=== PATIENT | female | born 1955 | race Caucasian/White ===

== ENCOUNTER 2018-04-14 15:28 | Inpatient (IN) | payer MEDICARE, MEDICAID ==
[2018-04-14] MEDS ORDERED: Naloxone HCl 2 mg/2 ml Syringe ONE (15:35)
[2018-04-14] MEDS ORDERED: Naloxone HCl 0.4 mg/ml Vial ONE (15:35)
[2018-04-14 15:48] LABS: Bilirubin Negative (Negative); Blood, Urine Negative (Negative); Clarity CLEAR (Clear); Glucose, Urine (Dipstick) Negative (Negative); Leukocyte Trace (Negative); Nitrite Negative (Negative); Protein, Urine (Dipstick) Trace mg/dL (Neg-Trace); Specific Gravity, Urine 1.026 (1.002-1.036); Urobilinogen 0.2 mg/dL (0.2-1.0); pH, Urine 5.5 (5.0-9.0)
[2018-04-14 15:51] LABS: Bacteria/HPF None Seen HPF (None Seen); Hyaline Casts/LPF 4-6 HYALINE CAST LPF (0-3 Hyaline); Pathc Cast-AUWi Flag 0.87 (0-2.49); RBC/HPF 0-3 HPF (0-3); Squamous Epithelial 0-3 HPF (0-3); WBC/HPF 0-3 HPF (0-3)
[2018-04-14 16:00] LABS: Amphetamine Not Detected (NotDetected); Barbiturates Screen Not Detected (NotDetected); Benzodiazepine Screen Detected (NotDetected); Cocaine Metabolite Screen Not Detected (NotDetected); Medtox Control Line Valid? VALID (VALID); Medtox Reader # READER 4; Methadone Not Detected (NotDetected); Methamphetamine Not Detected (NotDetected); Opiate Screen Detected (NotDetected); Oxycodone Screen Not Detected (NotDetected); Phencyclidine (PCP) Not Detected (NotDetected); THC/Cannabinoid Screen Not Detected (NotDetected); Tricyclic Screen Detected (NotDetected)
[2018-04-14 16:04] LABS: Hemoglobin 11.4 g/dL (12.0-16.0); Mean Corpuscular HGB CONC 30.4 g/dL (32.0-36.0); Mean Corpuscular Hemoglobin 29.8 pg (27.0-31.0); Mean Corpuscular Volume 97.9 fL (78.0-98.0); Mean Platelet Volume 6.1 fL (7.4-10.4); Platelet Count 505 thou/uL (130-400); RBC Distribution Width 14.1 % (11.5-14.5); Red Blood Cell (RBC) Count 3.81 mill/uL (4.20-5.40); White Blood Cell (WBC) Count 24.5 thou/uL (4.8-10.8)
[2018-04-14 16:05] LABS: Actual Bicarbonate (HCO3a) 35.6 mEq/L (22-28); Analyzer IN Cardio ER; Base Excess (BEa) 8.9 mEq/L (-2.0 to +3.0); Calcium, Ionized 1.15 mmol/L (1.12-1.30); Carboxyhemoglobin (COHb) 0.8 gm% (0.0-3.0); Hemoglobin (Hb) 10.4 g/dL (12.0-16.0); O2 Tension (PaO2) 68.9 mmHg (> 80.0); Potassium - ABG Lab 4.23 mmol/L (3.70-5.30); pH, Arterial 7.38 (7.35-7.45)
[2018-04-14 16:09] LABS: CO2 Tension 61.6 mmHg (35.0-45.0)
[2018-04-14 16:16] LABS: Band 8 % (5-11); Lymphocytes 7 % (21-51); MDiff Complete? YES; Monocytes 2 % (0-10); Neutrophil 83 % (42-75); PLT Morphology Comment Appears Increased; Polychromasia SLIGHT = 2-3 cells (100X) (0-2/hpf)
[2018-04-14 16:25] LABS: Acetaminophen Less than 6.0 mcg/mL (10.0-30.0); Alcohol Less than 10 mg/dL (Less than 10); CK (CPK) 38 U/L (29-168); Salicylate Less than 8.0 mg/dL (15.0-30.0)
[2018-04-14 16:26] LABS: ALT (SGPT) 13 U/L (8-55); AST (SGOT) 17 U/L (5-34); Albumin 3.3 g/dL (3.5-5.0); Alkaline Phosphatase 93 U/L (40-150); Anion Gap 20 mmol/L (10-20); BUN (Urea Nitrogen) 15 mg/dL (9.8-20.1); Bilirubin, Total 0.2 mg/dL (0.2-1.2); Calc. Creatinine Clearance 0 mL/min (70-130); Carbon Dioxide 28 mmol/L (22-29); Chloride 96 mmol/L (98-107); Estimated GFR-MDRD 85; Globulin 3.9 g/dL (2.4-3.5); Glucose 114 mg/dL (70-105); Potassium 5.1 mmol/L (3.5-5.1); Protein, Total 7.2 g/dL (6.0-8.3); Sodium 139 mmol/L (136-145)
[2018-04-14] MEDS ORDERED: fentaNYL Citrate/PF 2,000 MCG in Sodium Chloride 0.9% 60 ML IV SCH (16:53)
--- NOTE | 2018-04-14 16:58 | RAD ---
PORTABLE SUPINE CHEST: 04/14/18 HISTORY: Shortness of breath, post intubation followup and NG tube placement. COMPARISON: 03/06/06. Opacification of the right lung base is present. This suggests right effusion and right basilar atele ctasis and consolidation. The patient is rotated distorting the chest. ET tube tip appears adequately positioned with tip above latosha. NG tube is in place with the tip down the EG junction and not visualized on this film. The l eft lung appears clear. IMPRESSION: Right lung mass opacification as described POS: IAN
--- NOTE | 2018-04-14 17:56 | CT ---
CT BRAIN NONCONTRAST: 04/14/18 HISTORY: 62-year-old female status post fall and altered mental status. FINDINGS: There is no midline shift or any other mass effect. There is no evidence of acute intracranial hemor rhage, large cortical infarct, obstructive hydrocephalus, or extraaxial fluid collection. The calvar ium is intact. There is nasal bone fracture with distal tip of left side angled medially. There is an OGT and ETT in the oral cavity. There is associated near-total opacification of the nasopharyngeal a irway and nasal cavity by secretions. IMPRESSION: 1. No acute intracranial findings. 2. Minimally displaced nasal bone fracture of indeterminate age. 3. Endotracheal tube and orogastric tube. jn [] POS: JIN
--- NOTE | 2018-04-14 18:03 | CT ---
CT CERVICAL SPINE NONCONTRAST: 04/14/18 HISTORY: 62-year-old female status post acute cervical trauma from multiple falls. FINDINGS: There are no jumped or perched facets. There is no evidence of acute fracture. The vertebral body h eights are maintained. There is no prevertebral soft tissue swelling. There is opacification of the right lung apex. Endotracheal tube travels into the trachea. Orogastric tube is present in the esopha tonya. There are bulky osteophytes protruding into the prevertebral space at C3-4 and C7-T1. There is f usion of the C5 and C6 vertebral bodies across the obliterated disc space, currently without hardware . IMPRESSION: 1. No evidence of acute fracture or acute traumatic subluxation. 2. DISH (diffuse idiopathic skeletal hyperostosis). 3. Ankylosis of C5-6. jn [] POS: JIN
[2018-04-14] MEDS ORDERED: cefTRIAXone\\ROCEPHIN 2 GM VIAL ONE (18:09)
[2018-04-14 18:30] LABS: Actual Bicarbonate (HCO3a) 33.8 mEq/L (22-28); Analyzer IN Cardio ER; Base Excess (BEa) 9.7 mEq/L (-2.0 to +3.0); Carboxyhemoglobin (COHb) 0.3 gm% (0.0-3.0); Hemoglobin (Hb) 9.8 g/dL (12.0-16.0); O2 Tension (PaO2) 152.3 mmHg (> 80.0); Potassium - ABG Lab 3.97 mmol/L (3.70-5.30)
[2018-04-14] MEDS ORDERED: Dextrose 5% in Water 1,000 ML IV PRN (19:08)
[2018-04-14] MEDS ORDERED: Acetaminophen 325 MG/10.15 ML UDCUP PO PRN (19:08)
[2018-04-14] MEDS ORDERED: Acetaminophen 650 MG Suppository PR PRN (19:08)
[2018-04-14] MEDS ORDERED: Bisacodyl 10 MG SUPP PR PRN (19:08)
[2018-04-14] MEDS ORDERED: RENALLY ADJUST ANTIBIOTICS IVPB PRN (19:08)
[2018-04-14] MEDS ORDERED: Dextrose 50% Abboject 50 ML SYRINGE SLOW IVP PRN (19:08)
[2018-04-14] MEDS ORDERED: SYSTANE 3.5 GM TUBE EA EYE PRN (19:08)
[2018-04-14] MEDS ORDERED: Dextrose 5 %-0.45 % NaCl 1,000 ML IV SCH (19:15)
[2018-04-14] MEDS ORDERED: Ventilator Sedation Protocol 1 EACH FS SCH (19:15)
[2018-04-14] MEDS ORDERED: DISCONTINUE PREVIOUS NARCOTIC PAIN MEDICATIONS AND BENZODIAZEPINES FS SCH (19:28)
[2018-04-14] MEDS ORDERED: Fentanyl BOLUS 250 ML IVPB PRN (19:28)
[2018-04-14] MEDS ORDERED: Morphine 2 MG/ML SYRINGE SLOW IVP PRN (19:28)
[2018-04-14] MEDS ORDERED: Propofol BOLUS 1,000 MG/100 ML VIAL IV PRN (19:28)
[2018-04-14] MEDS ORDERED: Propofol 1,000 MG/100 ML VIAL IV PRN (19:28)
[2018-04-14 19:33] LABS: Troponin I Less than 0.010 ng/mL (< 0.028)
--- NOTE | 2018-04-14 20:06 | HP ---
PRIMARY CARE PHYSICIAN: Dr. Rik Ray. CHIEF COMPLAINT: Altered mentation. HISTORY OF PRESENT ILLNESS: The patient is a 62-year-old female with COPD, diabetes mellitus type 2 and obstructive sleep apnea, was brought in by EMS with altered mentation. The patient was admitted at this facility in December of this year for COPD exacerbation as well as pneumonia. She required noninvasive positive pressure ventilation while in the emergency room. She was discharged home on Levaquin along with prednisone taper. She also has a history of chronic pain syndrome and anxiety. The patient was brought in by EMS due to altered mentation. The trichologist reported that the patient has been having altered mentation, "all day" with multiple falls yesterday. Her O2 saturation by the EMS was 70% on room air. She received DuoNebs by EMS. Please note that there is no family or trichologist at the bedside. History obtained from the ER chart. In the emergency room, the patient's ABG showed pH of 7.38 with pCO2 of 61.6, bicarbonate of 35.6 with O2 saturation of 92.9 on 40% FiO2. She was subsequently intubated and was placed on mechanical ventilation. Apparently, her sister was contacted, who will be coming tonight. Her sister's phone #[phone] (Brina). PAST MEDICAL HISTORY: 1. COPD. 2. Obstructive sleep apnea. 3. Diabetes mellitus type 2. 4. Pneumonia in December of this year. 5. Chronic pain syndrome. 6. Anxiety. 7. Hyperlipidemia. 8. History of breast cancer. 9. Seizure disorder. 10. Obesity. 11. Schizophrenia. PAST SURGICAL HISTORY: 1. Right leg surgery. 2. Ventral hernia repair. 3. Cervical and lumbar surgery. 4. Hysterectomy. 5. Mastectomy. ALLERGIES: THE PATIENT IS ALLERGIC TO CODEINE, CYMBALTA, GABAPENTIN, AND LYRICA. CURRENT HOME MEDICATIONS: Cannot be obtained from the patient due to current cognitive status. SOCIAL HISTORY: The patient is a former smoker from review of record. FAMILY HISTORY: Family history cannot be obtained from the patient due to current cognitive status. REVIEW OF SYSTEMS: Cannot be obtained from the patient due to current cognitive status. PHYSICAL EXAMINATION: VITAL SIGNS: Temperature 99.9, respirations 19, pulse rate of 94, blood pressure of 98/65 with O2 saturation 100% on mechanical ventilation. GENERAL: A 62-year-old female, intubated on mechanical ventilation. HEENT: Head is atraumatic and normocephalic. Pupils approximately 2 mm with sluggish response to light. Endotracheal tube noted. NECK: Supple. No JVD appreciated. No carotid bruit. LUNGS: Showed bilateral rhonchi with rales at bases. No accessory muscle use noted. There was scattered wheezing as well. HEART: S1 and S2 present. Regular. No rubs or gallops appreciated. No significant murmurs appreciated. ABDOMEN: Soft. Bowel sounds present. No rebound or guarding. EXTREMITIES: No edema or calf tenderness. SKIN: Warm and dry. Multiple superficial bruising noted especially over the left knee. NEUROLOGY AND PSYCHIATRY: As discussed above. LYMPH NODE: No palpable lymph nodes in the neck. Peripheral, vascular, and radial pulses palpable bilaterally. MUSCULOSKELETAL: No joint swelling, tenderness. LABORATORY FINDINGS: CBC showed WBC 24.5 with hemoglobin 11.4, hematocrit 37.3 with platelet count of 505. ABGs as discussed above. Chemistry showed sodium 139, potassium 5.1, chloride 96, bicarbonate 28, BUN 20, and creatinine 0.7. LFTs in normal range. Lactic acid 1.1. Urinalysis was negative for wbc, bacteria. Urine drug screen positive for benzodiazepines, tricyclics, and opiates. DIAGNOSTIC DATA: Chest x-ray by my review showed opacifications in the right lung base along with right-sided effusion. CT scan of the brain and cervical spine CT were negative for acute findings. EKG by my review showed sinus tachycardia with premature ventricular complexes, left axis deviation, and right bundle branch block. IMPRESSION: 1. Acute hypoxic and hypercapnic respiratory failure secondary to pneumonia, suspected aspiration pneumonia. 2. Toxic metabolic encephalopathy, multifactorial. Urine drug screen is also positive for opiates and benzodiazepines. 3. Sepsis with acute organ dysfunction secondary to pneumonia. 4. Obstructive sleep apnea, on BiPAP at home per previous record. 5. Chronic obstructive pulmonary disease with chronic obstructive pulmonary disease exacerbation. 6. Hypertension. 7. Chronic pain syndrome. 8. Diabetes mellitus type 2. 9. Hyperlipidemia. 10. Anxiety and schizophrenia. 11. Chronic kidney disease stage 2. 12. History of breast cancer. 13. History of seizure disorder. PLAN: The patient will be monitored in the intensive care unit. The patient has received ceftriaxone and azithromycin in the emergency room with IV fluids. We will start her on Zosyn as well as Levaquin. We will add nebulizer treatment every 4 hourly. We will check one set of troponin. She also received Narcan in the emergency room. Vital signs per protocol. We will repeat labs in a.m. IV fluids. Insulin sliding scale. Critical Care consult in a.m. Job ID: [id number]
[2018-04-14 20:12] LABS: Puncture Site LRA
[2018-04-14] MEDS: Famotidine/PF 20 mg/2ml Vial SLOW IVP SCH (21:31)
[2018-04-14] MEDS ORDERED: Vancomycin HCl 1.75 GM in Sodium Chloride 0.9% 500 ML IVPB SCH (22:00)
[2018-04-15] MEDS: Insulin Glargine 10 UNITS in Pre-Filled Syringe 1 EACH SC SCH ×2 (00:58→21:19)
[2018-04-15] MEDS: Piperacillin/Tazobactam 3.375 GM in Sodium Chloride 0.9% 100 ML IVPB SCH ×5 (01:07→22:08)
[2018-04-15] MEDS: fentaNYL Citrate/PF 2,000 MCG in Sodium Chloride 0.9% 60 ML IV SCH ×2 (01:27→14:57)
[2018-04-15] MEDS ORDERED: Sodium Chloride 0.9% 500 ML IVPB SCH (02:15)
[2018-04-15] MEDS: Dextrose 5 % And 0.9 % NaCl 1,000 ML IV SCH ×3 (02:25→21:18)
[2018-04-15] MEDS ORDERED: Vancomycin HCl 1 GM in Premix Bag 1 BAG IVPB SCH (06:00)
[2018-04-15 06:19] LABS: ALT (SGPT) 9 U/L (8-55); AST (SGOT) 12 U/L (5-34); Albumin 2.5 g/dL (3.5-5.0); Alkaline Phosphatase 62 U/L (40-150); Anion Gap 15 mmol/L (10-20); BUN (Urea Nitrogen) 16 mg/dL (9.8-20.1); Bilirubin, Total 0.3 mg/dL (0.2-1.2); Calc. Creatinine Clearance 123 mL/min (70-130); Calcium 8.1 mg/dL (7.8-10.44); Carbon Dioxide 27 mmol/L (22-29); Chloride 102 mmol/L (98-107); Estimated GFR-MDRD 74; Globulin 3.4 g/dL (2.4-3.5); Glucose 121 mg/dL (70-105); Magnesium 1.5 mg/dL (1.6-2.6); Potassium 3.8 mmol/L (3.5-5.1); Protein, Total 5.9 g/dL (6.0-8.3); Sodium 140 mmol/L (136-145)
[2018-04-15 06:26] LABS: Band 17 % (5-11); Hemoglobin 8.1 g/dL (12.0-16.0); Lymphocytes 6 % (21-51); MDiff Complete? YES; Mean Corpuscular HGB CONC 31.2 g/dL (32.0-36.0); Monocytes 4 % (0-10); Myelocyte 1 % (0-0); Neutrophil 72 % (42-75); PLT Morphology Comment Appears Increased; Platelet Count 511 thou/uL (130-400); RBC Distribution Width 13.8 % (11.5-14.5); RBC Morphology Normal; White Blood Cell (WBC) Count 21.5 thou/uL (4.8-10.8)
[2018-04-15] MEDS: Budesonide 0.5 MG/2 ML NEB INH SCH ×2 (06:30→18:29)
[2018-04-15 06:39] LABS: Actual Bicarbonate (HCO3a) 30.8 mEq/L (22-28); Base Excess (BEa) 8.9 mEq/L (-2.0 to +3.0); CO2 Tension 31.6 mmHg (35.0-45.0); Calcium, Ionized 1.02 mmol/L (1.12-1.30); Carboxyhemoglobin (COHb) 0.9 gm% (0.0-3.0); Hemoglobin (Hb) 8.4 g/dL (12.0-16.0); Potassium - ABG Lab 3.47 mmol/L (3.70-5.30)
[2018-04-15 06:41] LABS: O2 Tension (PaO2) 53.5 mmHg (> 80.0); Puncture Site RRA; pH, Arterial 7.61 (7.35-7.45)
[2018-04-15] MEDS ORDERED: Magnesium Sulfate 2 GM in Sodium Chloride 0.9% 100 ML IVPB SCH (07:00)
[2018-04-15] MEDS ORDERED: Magnesium 2 GM/50 ML 2 GM in Premix Bag 1 BAG IVPB SCH ×2 (07:00→12:30)
[2018-04-15] MEDS: Famotidine/PF 20 mg/2ml Vial SLOW IVP SCH ×2 (08:00→21:19)
[2018-04-15] MEDS: Vancomycin HCl 1 GM in Premix Bag 1 BAG IVPB SCH ×2 (08:00→17:51)
[2018-04-15] MEDS ORDERED: Sodium Chloride 0.9% 500 ML IV SCH (08:30)
--- NOTE | 2018-04-15 10:08 | RAD ---
SINGLE VIEW OF THE CHEST: COMPARISON: 04/14/2018. HISTORY: Daily chest x-ray in CCU patient. FINDINGS: A single view of the chest shows a normal-size cardiomediastinal silhouette. There is significant wo rsening of the right pleural effusion with complete opacification of the right thorax. No left-sided pleural effusion is seen. No shift of the mediastinum is seen. The lines and tubes are unchanged i n position. IMPRESSION: Large right pleural effusion. CODE T POS: CHERELLE
[2018-04-15 11:10] LABS: Hemoglobin 8.4 g/dL (12.0-16.0)
[2018-04-15] MEDS: Insulin Regular 300 UNITS/3 ML VIAL SC PRN ×3 (12:29→21:29)
--- NOTE | 2018-04-15 18:37 | OP ---
DATE OF PROCEDURE: 04/15/2018 PROCEDURE: Fiberoptic bronchoscopy. The patient was sedated for mechanical ventilation. Bronchoscope was introduced through the endotracheal tube and passed down to the latosha. The latosha was sharp. Right main stem bronchus with the bronchus intermedius was plugged with thick white mucus. This was suctioned and lavaged with saline until clear. No endobronchial lesions were seen. Left lower lobe and left upper lobe were inspected. Specimens were sent for Gram-stain and culture. The patient tolerated the procedure well. Job ID: [id number]
--- NOTE | 2018-04-15 18:46 | CON ---
DATE OF CONSULTATION: 04/15/2018 HISTORY OF PRESENT ILLNESS: Ms. Quan is a 62-year-old female who is intubated in the Critical Care Unit. History is obtained from medical record. Apparently, she has COPD, sleep apnea, and diabetes. She apparently had altered mental status, was transported by EMS to the hospital. Apparently, she was falling at home and confused. Because of her mental status apparently she was intubated. PAST MEDICAL HISTORY: 1. Chronic obstructive pulmonary disease. 2. Sleep apnea. 3. Diabetes. 4. History of pneumonia. 5. History of chronic pain. 6. History of anxiety. 7. Lipid disorder. 8. History of breast cancer. 9. History of seizure disorder. 10. History of schizophrenia. 11. History of obesity. 12. History of hernia repair. 13. History of cervical and lumbar spine surgery. 14. Status post hysterectomy. 15. History of mastectomy. 16. History of right leg surgery. ALLERGIES: SHE REPORTS INTOLERANCE TO CODEINE, CYMBALTA, GABAPENTIN, AND LYRICA. MEDICATIONS: None. FAMILY HISTORY: Not obtainable. SOCIAL HISTORY: Not obtainable. REVIEW OF SYSTEMS: 10 point review of systems completed, not obtainable. There is no family here. PHYSICAL EXAMINATION: GENERAL: Ms. Quan is a 62-year-old female VITAL SIGNS: Blood pressure 99/68, heart rate 100, respiratory rate is per mechanical ventilation, oximetry is 100%. HEENT: Pupils are reactive. Sclerae anicteric. NECK: Supple. LUNGS: There are markedly decreased breath sounds on the right. HEART: Regular rhythm. S1, S2 normal. ABDOMEN: Soft and nontender. EXTREMITIES: Without clubbing, cyanosis, or edema. Bicarbonate Chest radiograph is suggestive of right lung atelectasis. I recommended bronchoscopy. IMPRESSION: 1. Respiratory failure. 2. History of chronic obstructive pulmonary disease. 3. History of chronic pain. 4. History of altered mental status prior to admission with no hypocarbia on blood gas. I wonder if this is pain medicine induced. PLAN: Bronchoscopy. Empiric antibiotic treatment, nebulizer treatments, steroids, mechanical ventilation. Critical care time 30 minutes, independent of procedures performed. Job ID: [id number] MTDD
--- NOTE | 2018-04-15 22:48 | PDOC.PN ---
- Subjective Encounter Start Date: 04/15/18 Encounter Start Time: 09:00 -: non-verbal Patient seen and examined for resp failure/Encephalopathy. No overnight events - Objective MAR Reviewed: Yes Vital Signs & Weight: Vital Signs (12 hours) Temp Pulse Resp 04/15/18 22:15 104 H 04/15/18 18:30 103 H 04/15/18 18:00 19 04/15/18 16:00 98.7 F 12 04/15/18 14:53 99 04/15/18 14:00 13 04/15/18 13:26 103 H 04/15/18 13:00 99.1 F 04/15/18 12:00 10 L Weight Weight 227 lb 8.273 oz Most Recent Monitor Data Heart Rate from ECG 103 NIBP 105/64 NIBP BP-Mean 77 Respiration from ECG 1 SpO2 97 I&O: 04/14/18 04/15/18 04/16/18 06:59 06:59 06:59 Intake Total 750 2543 Output Total 450 470 Balance 300 2073 Result Diagrams: 04/16/18 05:16 04/16/18 05:16 Additional Labs: Accuchecks 04/15/18 04/15/18 04/15/18 21:26 18:09 12:25 POC Glucose 185 H 182 H 175 H 04/15/18 00:22 POC Glucose 104 Radiology Reviewed by me: Yes (CXR - Rt sided infiltrate/worsening) EKG Reviewed by me: Yes (Tele SR) Phys Exam - Physical Examination Constitutional: NAD (on Vent) Respiratory: no wheezing Rt sided rales/rhonchi Cardiovascular: RRR, no rub Gastrointestinal: soft, positive bowel sounds Musculoskeletal: no edema Neuro/Psych - Cannot be obtained due to current mentation Dx/Plan - Plan DVT proph w/SCDs 1. Acute hypoxic and hypercapnic respiratory failure secondary to pneumonia,? Aspiration pneumonia. 2. Toxic metabolic encephalopathy, multifactorial. 3. Sepsis with acute organ dysfunction secondary to pneumonia. 4. Obstructive sleep apnea, on BiPAP at home per previous record. 5. COPD exacerbation. 6. Hypertension. 7. Chronic pain syndrome. 8. Diabetes mellitus type 2. 9. Hyperlipidemia. 10. Anxiety and schizophrenia. 11. Chronic kidney disease stage 2. 12. History of breast cancer. 13. History of seizure disorder. PLAN: Cont Vent support Cont Nebs/Atbx Prob Bronch today Cont IVF AM labs Cont sliding scale Review of Systems - Review of Systems Other: Cannot be obtained due to current mentation. - Medications/Allergies Allergies/Adverse Reactions: Allergies Allergy/AdvReac Type Severity Reaction Status Date / Time codeine Allergy Verified 04/14/18 23:04 duloxetine [From Cymbalta] Allergy Verified 04/14/18 23:04 gabapentin Allergy Verified 04/14/18 23:04 pregabalin [From Lyrica] Allergy Verified 04/14/18 23:04 Medications: Current Medications Acetaminophen (Tylenol Elixir) 650 mg PO Q6H PRN PRN Reason: Fever > 101 or Mild Pain Acetaminophen (Tylenol) 650 mg NV Q6H PRN PRN Reason: Fever > 101 or Mild Pain Last Admin: 04/15/18 03:15 Dose: 650 mg Albuterol/Ipratropium (Duoneb) 3 ml NEB [id number] ODETTE Last Admin: 04/15/18 22:15 Dose: 3 ml Albuterol/Ipratropium (Duoneb) 3 ml NEB Q2H PRN PRN Reason: SOB &/or Wheezing Bisacodyl (Dulcolax) 10 mg NV DAILYPRN PRN PRN Reason: Constipation Budesonide (Pulmicort Neb Solution) 0.5 mg INH BID-RT ODETTE Last Admin: 04/15/18 18:29 Dose: 0.5 mg Dextrose/Water (Dextrose 50%) 25 gm SLOW IVP PRN PRN PRN Reason: Hypoglycemia Famotidine (Pepcid) 20 mg SLOW IVP Q12HR [facility] Last Admin: 04/15/18 21:19 Dose: 20 mg Glucagon (Glucagon) 1 mg IM PRN PRN PRN Reason: Hypoglycemia Levofloxacin 750 mg/ Device 150 mls @ 100 mls/hr IVPB Q24HR ODETTE Last Admin: 04/15/18 22:09 Dose: 150 mls Piperacillin Sod/Tazobactam (Sod 3.375 gm/ Sodium Chloride) 100 mls @ 200 mls/ hr IVPB Q6HR ODETTE Last Admin: 04/15/18 22:08 Dose: 100 mls Dextrose/Water (D5w) 1,000 mls @ 0 mls/hr IV .Q0M PRN PRN Reason: Hypoglycemia Insulin Glargine 10 units/ (Miscellaneous Medication) 0.1 mls @ 0 mls/hr SC HS ODETTE Last Admin: 04/15/18 21:19 Dose: 0.1 mls Fentanyl Citrate (Fentanyl Bolus) 250 mls @ 0 mls/hr IVPB PRN PRN PRN Reason: Breakthrough pain/agitation Stop: 05/14/18 19:28 Fentanyl Citrate 2,000 mcg/ (Sodium Chloride) 100 mls @ 0 mls/hr IV INF ODETTE; Protocol Stop: 05/14/18 19:30 Last Admin: 04/15/18 14:57 Dose: 100 mls Vancomycin HCl 1 gm/ Device 200 mls @ 200 mls/hr IVPB 0100,0900,1700 [facility] Last Admin: 04/15/18 17:51 Dose: 200 mls Dextrose/Sodium Chloride (D5 0.9% Ns) 1,000 mls @ 125 mls/hr IV .Q8H [facility] Last Admin: 04/15/18 21:18 Dose: 1,000 mls Influenza Virus Vaccine Quadrival (Fluzone Quad [id number] Syringe) 0.5 ml IM .ONCE ONE Stop: 04/16/18 09:01 Insulin Human Regular (Humulin R) 0 units SC .MILD SLIDING SCALE PRN PRN Reason: Mild Correctional Scale Last Admin: 04/15/18 21:29 Dose: 2 unit Insulin Human Regular (Humulin R) 0 units SC .BEDTIME SLIDING SC PRN PRN Reason: Bedtime Correctional Scale Lorazepam (Ativan) 2 mg SLOW IVP Q1H PRN PRN Reason: Breakthrough agitation Stop: 05/14/18 19:28 Mineral Oil/White Petrolatum (Systane Nighttime Eye Ointment) 0 gm EA EYE PRN PRN PRN Reason: Dry Eyes Miscellaneous Medication (Ventilator Sedation Protocol) 1 each FS ONE [facility] Stop: 05/14/18 19:16 Miscellaneous Medication (Pharmacy To Dose) 1 each IVPB PRN PRN PRN Reason: Pharmacy to dose Miscellaneous Medication (Pharmacy To Dose) 0 each IVPB PRN PRN PRN Reason: [facility] Pharmacy to Dose Morphine Sulfate (Morphine) 2 mg SLOW IVP Q1H PRN PRN Reason: BREAKTHROUGH PAIN/Agitation Stop: 05/14/18 19:28 Discontinue Previous Narcotic Pain Medications And Benzodiazepines 1 each FS .ONE ODETTE Stop: 05/14/18 19:28 Pneumococcal Polyvalent Vaccine (Pneumovax 23) 0.5 ml IM .ONCE ONE Stop: 04/16/18 09:01 Propofol (Diprivan) 1,000 mg IV INF PRN; Protocol PRN Reason: TO ACHIEVE GOAL RASS Stop: 05/14/18 19:28 Propofol (Diprivan Bolus) 20 mg IV Q5MIN PRN PRN Reason: BREAKTHROUGH AGITATION Stop: 05/14/18 19:28 Sodium Chloride (Flush - Normal Saline) 10 ml IVF PRN PRN PRN Reason: Saline Flush Sodium Chloride (Flush - Normal Saline) 10 ml IVF Q12HR ODETTE Last Admin: 04/15/18 22:20 Dose: 10 ml
[2018-04-16] MEDS: Vancomycin HCl 1 GM in Premix Bag 1 BAG IVPB SCH (00:32)
[2018-04-16 01:04] LABS: Vancomycin, Trough 28.8 ug/mL
[2018-04-16] MEDS: Dextrose 5 % And 0.9 % NaCl 1,000 ML IV SCH ×3 (05:44→19:04)
[2018-04-16] MEDS: Piperacillin/Tazobactam 3.375 GM in Sodium Chloride 0.9% 100 ML IVPB SCH ×4 (05:45→23:48)
[2018-04-16 06:12] LABS: Band 5 % (5-11); Hemoglobin 7.9 g/dL (12.0-16.0); Hypochromia SLIGHT = 6-15 cells (100X) (0-5/hpf); Lymphocytes 3 % (21-51); MDiff Complete? YES; Macrocytosis SLIGHT = 6-15 cells (100X) (0-5/hpf); Mean Corpuscular HGB CONC 29.9 g/dL (32.0-36.0); Mean Corpuscular Hemoglobin 29.8 pg (27.0-31.0); Mean Corpuscular Volume 99.6 fL (78.0-98.0); Mean Platelet Volume 5.8 fL (7.4-10.4); Monocytes 3 % (0-10); Neutrophil 89 % (42-75); PLT Morphology Comment Appears Decreased; Platelet Count 504 thou/uL (130-400); Red Blood Cell (RBC) Count 2.65 mill/uL (4.20-5.40); White Blood Cell (WBC) Count 26.2 thou/uL (4.8-10.8)
[2018-04-16 06:13] LABS: ALT (SGPT) 7 U/L (8-55); AST (SGOT) 9 U/L (5-34); Albumin 2.3 g/dL (3.5-5.0); Alkaline Phosphatase 66 U/L (40-150); Anion Gap 13 mmol/L (10-20); BUN (Urea Nitrogen) 18 mg/dL (9.8-20.1); Bilirubin, Total Less than 0.2 mg/dL (0.2-1.2); Calc. Creatinine Clearance 130 mL/min (70-130); Calcium 8.1 mg/dL (7.8-10.44); Carbon Dioxide 27 mmol/L (22-29); Chloride 103 mmol/L (98-107); Estimated GFR-MDRD 72; Globulin 3.6 g/dL (2.4-3.5); Glucose 152 mg/dL (70-105); Magnesium 1.9 mg/dL (1.6-2.6); Potassium 3.9 mmol/L (3.5-5.1); Protein, Total 5.9 g/dL (6.0-8.3); Sodium 139 mmol/L (136-145)
[2018-04-16] MEDS: Budesonide 0.5 MG/2 ML NEB INH SCH ×2 (07:30→18:41)
[2018-04-16 07:44] LABS: Actual Bicarbonate (HCO3a) 29.7 mEq/L (22-28); Base Excess (BEa) 3.6 mEq/L (-2.0 to +3.0); CO2 Tension 54.4 mmHg (35.0-45.0); Calcium, Ionized 1.07 mmol/L (1.12-1.30); Carboxyhemoglobin (COHb) 1.7 gm% (0.0-3.0); Hemoglobin (Hb) 8.1 g/dL (12.0-16.0); O2 Tension (PaO2) 74.8 mmHg (> 80.0); Potassium - ABG Lab 3.85 mmol/L (3.70-5.30); pH, Arterial 7.36 (7.35-7.45)
[2018-04-16 07:47] LABS: Puncture Site LRA
--- NOTE | 2018-04-16 08:55 | RAD ---
CHEST 1 VIEW: INDICATION: History of intubation. COMPARISON: Prior study dated 04/15/2018. IMPRESSION: There is improvement in the right-sided pleural effusion. Moderate right pleural effusion remains. Patchy airspace opacity remains in the right lung which may reflect edema, pneumonia, or residual ate lectasis. The left lung remains clear. Osseous structures are unchanged. Heart size remains enlarg ed. Improvement in the right-sided pleural effusion. Moderate right pleural effusion remains howeve r. POS: TPC
[2018-04-16] MEDS: Famotidine/PF 20 mg/2ml Vial SLOW IVP SCH ×2 (09:37→20:38)
[2018-04-16] MEDS: Lorazepam 2 MG/ML VIAL SLOW IVP PRN (09:38)
--- NOTE | 2018-04-16 12:11 | CT ---
CT THORAX WITHOUT IV CONTRAST: Date: 04/16/18 INDICATION: History of effusion and pneumonia. COMPARISON: CTA of thorax dated 01/21/18. FINDINGS: There is prominent air space consolidation within the right lower lobe, as well as the posterior segm ent of the right upper lobe, with a moderate to large right pleural effusion. There is an air fluid l evel seen within the parenchyma of the right lower lobe and the previously expected region of an area of rounded consolidation on the prior CT examination dated 01/21/18. Findings may reflect a localize d lesion of central necrosis of a large right infrahilar lung mass versus central necrosis from pneum onia of the right lower lobe. No pneumothorax is evidence. There is subsegmental atelectasis within t he left lung. The patient is intubated with a gastric catheter in place. There is scattered vascular calcification involving the coronary arteries and thoracic aorta. Visualized upper abdomen demonstrat es a hydropic gallbladder with layered sludge within the gallbladder. No focal hepatic lesion is rayne sly evident. There is scattered degenerative and osteoarthritic change. There are healed posterior ri ght 11th and 12th rib fractures. IMPRESSION: 1. Prominent air space consolidation within the right upper lobe and right lower lobe, suspicious fo r pneumonia. There is an air fluid level centered within the right lower lobe parenchyma in the previ ously seen region of rounded consolidation of the right lower lobe on the comparison CT dated 8. Findings may reflect a central necrotic lung mass versus pneumonia. If renal function permits, a r epeat evaluation with IV contrast may be helpful for improved characterization. Alternatively, bronch oscopy may be helpful for further evaluation. 2. Small right pleural effusion. 3. Subsegmental atelectasis of the left lung. 4. Slightly hydropic gallbladder with layered densities within the gallbladder suspicious for sludge . POS: TPC
[2018-04-16] MEDS: Insulin Regular 300 UNITS/3 ML VIAL SC PRN ×3 (13:26→23:50)
[2018-04-16] MEDS: Vancomycin HCl 1.25 GM in Sodium Chloride 0.9% 250 ML 250 ML IVPB SCH (13:54)
[2018-04-16] MEDS: fentaNYL Citrate/PF 2,000 MCG in Sodium Chloride 0.9% 60 ML IV SCH (14:45)
--- NOTE | 2018-04-16 15:37 | PRG ---
DATE OF SERVICE: 04/16/2018 SUBJECTIVE: Ms. Quan is sedated for ventilation. OBJECTIVE: VITAL SIGNS: Stable. Blood pressure 106/56, heart rate is 106, respiratory rates in the 10 to 12 range, oximetry is 97%. LUNGS: Remarkable for diffuse and very coarse rhonchi. HEART: Regular rhythm. S1 and S2 normal. ABDOMEN: Soft and nontender without guarding. EXTREMITIES: Without clubbing, cyanosis, or edema. IMAGING DATA: Bronchoscopy culture so far just shows a Gram-stain with few gram-positive cocci in pairs and chains. Cultures are pending. Blood cultures negative at 48 hours. Chest radiograph still shows either atelectasis or pleural effusion on the right. I have recommended CT scanning of the chest sort through this. IMPRESSION: Pneumonia with asthmatic bronchitis. I have added in IV steroids. She will continue nebulized treatments. She is not weanable given significance of her secretions. Once we have respiratory secretion ID, then perhaps vancomycin can be discontinued. Critical care time, 30 minutes. ADDENDUM: Blood gas shows pH 7.36, CO2 of 54, PO2 of 74 on 45%, mechanical rate of 10, tidal volume 500, pressure support of 10, tidal volume of 500, pressure support of 10, and PEEP 5. Job ID: [id number]
[2018-04-16] MEDS: Insulin Glargine 10 UNITS in Pre-Filled Syringe 1 EACH SC SCH (20:38)
--- NOTE | 2018-04-16 22:56 | PDOC.PN ---
- Subjective Encounter Start Date: 04/16/18 Encounter Start Time: 10:45 Patient seen and examined for Resp failure. On Vent. No overnight events - Objective MAR Reviewed: Yes Vital Signs & Weight: Vital Signs (12 hours) Temp Pulse Resp BP Pulse Ox 04/16/18 20:00 99.5 F 10 L 99 04/16/18 18:41 104 H 10 L 95 04/16/18 18:40 105 H 10 L 95 04/16/18 18:00 10 L 04/16/18 16:00 99.6 F 14 04/16/18 14:46 104 H 101/56 L 04/16/18 14:44 103 H 10 L 97 04/16/18 14:00 12 04/16/18 12:00 98.2 F 12 Weight Admit Weight 245 lb Weight 245 lb 2.464 oz Most Recent Monitor Data Heart Rate from ECG 97 NIBP 105/54 NIBP BP-Mean 71 Respiration from ECG 7 SpO2 99 I&O: 04/15/18 04/16/18 04/17/18 06:59 06:59 06:59 Intake Total 750 3158 1479.4 Output Total 450 1000 738 Balance 300 2158 741.4 Result Diagrams: 04/17/18 04:58 04/17/18 04:58 Additional Labs: Accuchecks 04/16/18 04/16/18 18:51 13:23 POC Glucose 229 H 170 H EKG Reviewed by me: Yes (Tele SR) Phys Exam - Physical Examination Constitutional: NAD Respiratory: no wheezing Bibasilar rales/rhonchi R> L Cardiovascular: RRR, no rub Gastrointestinal: soft, positive bowel sounds Dx/Plan - Plan DVT proph w/lovenox, DVT proph w/SCDs 1. Acute hypoxic and hypercapnic respiratory failure secondary to pneumonia,? Aspiration pneumonia - on Mech Vent s/p Bronch 2. Toxic metabolic encephalopathy, multifactorial. 3. Sepsis with acute organ dysfunction secondary to pneumonia. 4. Obstructive sleep apnea, on BiPAP at home per previous record. 5. COPD exacerbation. 6. Hypertension. 7. Chronic pain syndrome. 8. Diabetes mellitus type 2. 9. Hyperlipidemia. 10. Anxiety and schizophrenia. 11. Chronic kidney disease stage 2. 12. History of breast cancer. 13. History of seizure disorder. PLAN: Cont Vent support/Nebs/Atbx/Steroids AM labs Cont sliding scale Cont other meds as below Review of Systems - Review of Systems Other: Cannot obtain due to current mentation - Medications/Allergies Allergies/Adverse Reactions: Allergies Allergy/AdvReac Type Severity Reaction Status Date / Time codeine Allergy Verified 04/14/18 23:04 duloxetine [From Cymbalta] Allergy Verified 04/14/18 23:04 gabapentin Allergy Verified 04/14/18 23:04 pregabalin [From Lyrica] Allergy Verified 04/14/18 23:04 Medications: Current Medications Acetaminophen (Tylenol Elixir) 650 mg PO Q6H PRN PRN Reason: Fever > 101 or Mild Pain Acetaminophen (Tylenol) 650 mg [place] Q6H PRN PRN Reason: Fever > 101 or Mild Pain Last Admin: 04/15/18 03:15 Dose: 650 mg Albuterol/Ipratropium (Duoneb) 3 ml NEB [id number] [facility] Last Admin: 04/16/18 18:40 Dose: 3 ml Albuterol/Ipratropium (Duoneb) 3 ml NEB Q2H PRN PRN Reason: SOB &/or Wheezing Bisacodyl (Dulcolax) 10 mg [place] DAILYPRN PRN PRN Reason: Constipation Budesonide (Pulmicort Neb Solution) 0.5 mg INH BID-RT [facility] Last Admin: 04/16/18 18:41 Dose: 0.5 mg Dextrose/Water (Dextrose 50%) 25 gm SLOW IVP PRN PRN PRN Reason: Hypoglycemia Famotidine (Pepcid) 20 mg SLOW IVP Q12HR [facility] Last Admin: 04/16/18 20:38 Dose: 20 mg Glucagon (Glucagon) 1 mg IM PRN PRN PRN Reason: Hypoglycemia Levofloxacin 750 mg/ Device 150 mls @ 100 mls/hr IVPB Q24HR [facility] Last Admin: 04/16/18 20:38 Dose: 150 mls Piperacillin Sod/Tazobactam (Sod 3.375 gm/ Sodium Chloride) 100 mls @ 200 mls/ hr IVPB Q6HR [facility] Last Admin: 04/16/18 18:28 Dose: 100 mls Dextrose/Water (D5w) 1,000 mls @ 0 mls/hr IV .Q0M PRN PRN Reason: Hypoglycemia Insulin Glargine 10 units/ (Miscellaneous Medication) 0.1 mls @ 0 mls/hr SC HS ODETTE Last Admin: 04/16/18 20:38 Dose: 0.1 mls Fentanyl Citrate (Fentanyl Bolus) 250 mls @ 0 mls/hr IVPB PRN PRN PRN Reason: Breakthrough pain/agitation Stop: 05/14/18 19:28 Fentanyl Citrate 2,000 mcg/ (Sodium Chloride) 100 mls @ 0 mls/hr IV INF ODETTE; Protocol Stop: 05/14/18 19:30 Last Admin: 04/16/18 14:45 Dose: 100 mls Dextrose/Sodium Chloride (D5 0.9% Ns) 1,000 mls @ 125 mls/hr IV .Q8H [facility] Last Admin: 04/16/18 19:04 Dose: 1,000 mls Vancomycin HCl 1.25 gm/ Sodium (Chloride) 250 mls @ 166.667 mls/hr IVPB 0200, 1400 [facility] Last Admin: 04/16/18 13:54 Dose: 250 mls Insulin Human Regular (Humulin R) 0 units SC .MILD SLIDING SCALE PRN PRN Reason: Mild Correctional Scale Last Admin: 04/16/18 18:53 Dose: 3 unit Insulin Human Regular (Humulin R) 0 units SC .BEDTIME SLIDING SC PRN PRN Reason: Bedtime Correctional Scale Lamotrigine (Lamictal) 50 mg PER TUBE 0820 [facility] Lorazepam (Ativan) 2 mg SLOW IVP Q1H PRN PRN Reason: Breakthrough agitation Stop: 05/14/18 19:28 Last Admin: 04/16/18 09:38 Dose: 2 mg Methylprednisolone Sodium Succinate (Solu-Medrol) 20 mg IVP Q6HR [facility] Last Admin: 04/16/18 18:29 Dose: 20 mg Mineral Oil/White Petrolatum (Systane Nighttime Eye Ointment) 0 gm EA EYE PRN PRN PRN Reason: Dry Eyes Miscellaneous Medication (Ventilator Sedation Protocol) 1 each FS ONE [facility] Stop: 05/14/18 19:16 Miscellaneous Medication (Pharmacy To Dose) 1 each IVPB PRN PRN PRN Reason: Pharmacy to dose Miscellaneous Medication (Pharmacy To Dose) 0 each IVPB PRN PRN PRN Reason: [facility] Pharmacy to Dose Morphine Sulfate (Morphine) 2 mg SLOW IVP Q1H PRN PRN Reason: BREAKTHROUGH PAIN/Agitation Stop: 05/14/18 19:28 Discontinue Previous Narcotic Pain Medications And Benzodiazepines 1 each FS .ONE [facility] Stop: 05/14/18 19:28 Propofol (Diprivan) 1,000 mg IV INF PRN; Protocol PRN Reason: TO ACHIEVE GOAL RASS Stop: 05/14/18 19:28 Propofol (Diprivan Bolus) 20 mg IV Q5MIN PRN PRN Reason: BREAKTHROUGH AGITATION Stop: 05/14/18 19:28 Sodium Chloride (Flush - Normal Saline) 10 ml IVF PRN PRN PRN Reason: Saline Flush Sodium Chloride (Flush - Normal Saline) 10 ml IVF Q12HR [facility] Last Admin: 04/16/18 20:41 Dose: 10 ml
[2018-04-17] MEDS: Vancomycin HCl 1.25 GM in Sodium Chloride 0.9% 250 ML 250 ML IVPB SCH ×2 (02:16→14:22)
[2018-04-17] MEDS: Dextrose 5 % And 0.9 % NaCl 1,000 ML IV SCH ×3 (04:46→19:54)
[2018-04-17] MEDS: Piperacillin/Tazobactam 3.375 GM in Sodium Chloride 0.9% 100 ML IVPB SCH ×4 (05:10→23:54)
[2018-04-17] MEDS: Budesonide 0.5 MG/2 ML NEB INH SCH ×2 (06:03→18:16)
[2018-04-17 06:06] LABS: Hemoglobin 7.3 g/dL (12.0-16.0); Mean Corpuscular HGB CONC 30.4 g/dL (32.0-36.0); Mean Corpuscular Hemoglobin 30.4 pg (27.0-31.0); Mean Platelet Volume 5.8 fL (7.4-10.4); Platelet Count 470 thou/uL (130-400); RBC Distribution Width 14.3 % (11.5-14.5); Red Blood Cell (RBC) Count 2.38 mill/uL (4.20-5.40); White Blood Cell (WBC) Count 20.7 thou/uL (4.8-10.8)
[2018-04-17 06:07] LABS: Band 18 % (5-11); MDiff Complete? YES; Metamyelocyte 1 % (0-0); Monocytes 1 % (0-10); Myelocyte 1 % (0-0); Neutrophil 79 % (42-75); PLT Morphology Comment Appears Increased
[2018-04-17 06:21] LABS: ALT (SGPT) 9 U/L (8-55); AST (SGOT) 10 U/L (5-34); Albumin 2.3 g/dL (3.5-5.0); Alkaline Phosphatase 67 U/L (40-150); Anion Gap 15 mmol/L (10-20); BUN (Urea Nitrogen) 23 mg/dL (9.8-20.1); Bilirubin, Total 0.2 mg/dL (0.2-1.2); Calc. Creatinine Clearance 64 mL/min (70-130); Calcium 8.4 mg/dL (7.8-10.44); Carbon Dioxide 25 mmol/L (22-29); Chloride 108 mmol/L (98-107); Estimated GFR-MDRD 32; Globulin 3.6 g/dL (2.4-3.5); Glucose 166 mg/dL (70-105); Potassium 4.2 mmol/L (3.5-5.1); Protein, Total 5.9 g/dL (6.0-8.3); Sodium 144 mmol/L (136-145)
[2018-04-17] MEDS: Insulin Regular 300 UNITS/3 ML VIAL SC PRN ×3 (06:41→18:02)
--- NOTE | 2018-04-17 08:44 | RAD ---
CHEST ONE VIEW: HISTORY: Ventilated patient. COMPARISON: Radiograph from the prior day. FINDINGS: The patient is intubated with the endotracheal tube tip at the level of the clavicles. Layering larg e right effusion. An enteric tube is in place with the tip poorly seen, may be sequela of technique. IMPRESSION: 1. Similar examination of the chest. 2. There is poor visualization of the previously described air-fluid level within the right mid lung , which may reflect an intraparenchymal abscess versus necrotic mass. POS: [facility]
--- NOTE | 2018-04-17 09:32 | PRG ---
DATE OF SERVICE: 04/17/2018 SUBJECTIVE: This morning, she is intubated in the vent, sedated. X-ray shows rather impressive right-sided infiltrate with a small pleural effusion, parapneumonic. OBJECTIVE: VITAL SIGNS: Temperature 98.7, blood pressure 116/60, pulse 107, and respiratory rate 18. CHEST: Decreased breath sounds without any wheezing. CARDIAC: Normal S1 and S2. No gallops. ABDOMEN: No masses. LABORATORY DATA: White count 20,000, hemoglobin and hematocrit 7 and 23, platelet count is normal. Creatinine is 1.63. IMPRESSION: 1. Right-sided pneumonia. 2. Pleural effusion. 3. Morbid obesity. Plan _start nutrition ,and PT. not weanable Concern about small pleural effusion. It may require thoracentesis at a later time. One hour for critical time. Job ID: [id number] MTDD
[2018-04-17] MEDS: Famotidine/PF 20 mg/2ml Vial SLOW IVP SCH ×2 (09:36→20:50)
[2018-04-17] MEDS: lamoTRIgine 25 MG TAB PER TUBE SCH ×2 (10:27→20:49)
[2018-04-17] MEDS ORDERED: Pancrelipase DR 12000 1 CAP FS PRN (15:20)
[2018-04-17] MEDS ORDERED: Sodium Bicarbonate Tab 325 MG TAB PER TUBE PRN (15:20)
[2018-04-17] MEDS: fentaNYL Citrate/PF 2,000 MCG in Sodium Chloride 0.9% 60 ML IV SCH (17:13)
[2018-04-17] MEDS: Insulin Glargine 10 UNITS in Pre-Filled Syringe 1 EACH SC SCH (20:50)
[2018-04-17] MEDS: CLOZARIL 100 MG PO SCH (20:51)
--- NOTE | 2018-04-17 21:02 | PDOC.PN ---
- Subjective Encounter Start Date: 04/17/18 Encounter Start Time: 11:00 -: non-verbal Patient seen and examined for Resp failure. On [facility] Vent. No overnight events - Objective MAR Reviewed: Yes Vital Signs & Weight: Vital Signs (12 hours) Temp Pulse Pulse Pulse Resp BP BP 04/17/18 18:16 93 10 L 04/17/18 18:15 93 10 L 04/17/18 18:00 10 L 04/17/18 16:00 13 04/17/18 15:03 95 117/61 04/17/18 15:00 98 101 H 117/61 04/17/18 14:00 10 L 04/17/18 13:54 98 10 L 04/17/18 13:00 97 119/65 04/17/18 12:00 98.5 F 10 L 04/17/18 10:00 102 H 13 119/62 04/17/18 09:39 100 10 L BP Pulse Ox Pulse Ox Pulse Ox 04/17/18 18:16 98 04/17/18 18:15 98 04/17/18 18:00 04/17/18 16:00 18 15:03 04/17/18 15:00 123/67 96 95 04/17/18 14:00 04/17/18 13:54 97 04/17/18 13:00 04/17/18 12:00 04/17/18 10:00 04/17/18 09:39 96 Weight Admit Weight 245 lb Weight 244 lb 0.827 oz Most Recent Monitor Data Heart Rate from ECG 99 NIBP 123/63 NIBP BP-Mean 83 Respiration from ECG 13 SpO2 96 I&O: 04/16/18 04/17/18 04/18/18 06:59 06:59 06:59 Intake Total 3158 2779.4 1600.4 Output Total 1000 928 261 Balance 2158 1851.4 1339.4 Result Diagrams: 04/18/18 06:28 04/18/18 06:28 Additional Labs: Accuchecks 04/17/18 04/17/18 04/17/18 18:03 12:06 06:41 POC Glucose 215 H 256 H 183 H 04/16/18 23:50 POC Glucose 224 H Laboratory Tests 04/16/18 04/17/18 05:16 04:58 Hgb 7.9 L 7.3 L Radiology Reviewed by me: Yes (CXR - no new changes) EKG Reviewed by me: Yes (Tele SR) Phys Exam - Physical Examination Constitutional: NAD Respiratory: no wheezing Bibasilar rales with rhonchi - mainly on R Cardiovascular: RRR, no rub Gastrointestinal: soft, positive bowel sounds Dx/Plan - Plan DVT proph w/SCDs 1. Acute hypoxic and hypercapnic respiratory failure secondary to pneumonia,? [facility] 2. Toxic metabolic encephalopathy, multifactorial. 3. Sepsis with acute organ dysfunction secondary to pneumonia. 4. Anemia of unclear etiology. 5. COPD exacerbation. 6. Hypertension. 7. Chronic pain syndrome. 8. Diabetes mellitus type 2. 9. Hyperlipidemia. 10. Anxiety and schizophrenia. 11. Chronic kidney disease stage 2. 12. History of breast cancer. 13. History of seizure disorder. 14. Obstructive sleep apnea, on BiPAP at home per previous record. PLAN: Cont Vent support/Nebs/Atbx/Steroids AM labs Cont sliding scale Cont other meds as below Not on Lovenox due to low Hemoglobin Monitor HH Increase Lantus Review of Systems - Review of Systems Other: Cannot obtain due to current mentation - Medications/Allergies Allergies/Adverse Reactions: Allergies Allergy/AdvReac Type Severity Reaction Status Date / Time codeine Allergy Verified 04/14/18 23:04 duloxetine [From Cymbalta] Allergy Verified 04/14/18 23:04 gabapentin Allergy Verified 04/14/18 23:04 pregabalin [From Lyrica] Allergy Verified 04/14/18 23:04 Medications: Current Medications Acetaminophen (Tylenol Elixir) 650 mg PO Q6H PRN PRN Reason: Fever > 101 or Mild Pain Acetaminophen (Tylenol) [address] Q6H PRN PRN Reason: Fever > 101 or Mild Pain Last Admin: 04/15/18 03:15 Dose: 650 mg Albuterol/Ipratropium (Duoneb) 3 ml NEB [id number] [facility] Last Admin: 04/17/18 18:15 Dose: 3 ml Albuterol/Ipratropium (Duoneb) 3 ml NEB Q2H PRN PRN Reason: SOB &/or Wheezing Lipase/Protease/Amylase ([place] [id number]) 1 cap FS .PER PROTOCOL PRN PRN Reason: TUBE OCCLUSION PROTOCOL Bisacodyl (Dulcolax) [address] DAILYPRN PRN PRN Reason: Constipation Budesonide (Pulmicort Neb Solution) 0.5 mg INH BID-RT [facility] Last Admin: 04/17/18 18:16 Dose: 0.5 mg Dextrose/Water (Dextrose 50%) 25 gm SLOW IVP PRN PRN PRN Reason: Hypoglycemia Famotidine (Pepcid) 20 mg SLOW IVP Q12HR [facility] Last Admin: 04/17/18 09:36 Dose: 20 mg Glucagon (Glucagon) 1 mg IM PRN PRN PRN Reason: Hypoglycemia Levofloxacin 750 mg/ Device 150 mls @ 100 mls/hr IVPB Q24HR [facility] Last Admin: 04/16/18 20:38 Dose: 150 mls Piperacillin Sod/Tazobactam (Sod 3.375 gm/ Sodium Chloride) 100 mls @ 200 mls/ hr IVPB Q6HR [facility] Last Admin: 04/17/18 17:49 Dose: 100 mls Dextrose/Water (D5w) 1,000 mls @ 0 mls/hr IV .Q0M PRN PRN Reason: Hypoglycemia Insulin Glargine 10 units/ (Miscellaneous Medication) 0.1 mls @ 0 mls/hr SC HS [facility] Last Admin: 04/16/18 20:38 Dose: 0.1 mls Fentanyl Citrate (Fentanyl Bolus) 250 mls @ 0 mls/hr IVPB PRN PRN PRN Reason: Breakthrough pain/agitation Stop: 05/14/18 19:28 Fentanyl Citrate 2,000 mcg/ (Sodium Chloride) 100 mls @ 0 mls/hr IV INF [facility]; Protocol Stop: 05/14/18 19:30 Last Admin: 04/17/18 17:13 Dose: 100 mls Dextrose/Sodium Chloride (D5 0.9% Ns) 1,000 mls @ 125 mls/hr IV .Q8H [facility] Last Admin: 04/17/18 19:54 Dose: 1,000 mls Vancomycin HCl 1.25 gm/ Sodium (Chloride) 250 mls @ 166.667 mls/hr IVPB 0200, 1400 [facility] Last Admin: 04/17/18 14:22 Dose: 250 mls Insulin Human Regular (Humulin R) 0 units SC .MILD SLIDING SCALE PRN PRN Reason: Mild Correctional Scale Last Admin: 04/17/18 18:02 Dose: 3 unit Insulin Human Regular (Humulin R) 0 units SC .BEDTIME SLIDING SC PRN PRN Reason: Bedtime Correctional Scale Last Admin: 04/16/18 23:50 Dose: 2 unit Lamotrigine (Lamictal) 50 mg PER TUBE 08,20 [facility] Last Admin: 04/17/18 10:27 Dose: 50 mg Lorazepam (Ativan) 2 mg SLOW IVP Q1H PRN PRN Reason: Breakthrough agitation Stop: 05/14/18 19:28 Last Admin: 04/16/18 09:38 Dose: 2 mg Methylprednisolone Sodium Succinate (Solu-Medrol) 20 mg IVP Q6HR [facility] Last Admin: 04/17/18 17:49 Dose: 20 mg Mineral Oil/White Petrolatum (Systane Nighttime Eye Ointment) 0 gm EA EYE PRN PRN PRN Reason: Dry Eyes Miscellaneous Medication (Ventilator Sedation Protocol) 1 each FS ONE [facility] Stop: 05/14/18 19:16 Miscellaneous Medication (Pharmacy To Dose) 1 each IVPB PRN PRN PRN Reason: Pharmacy to dose Miscellaneous Medication (Pharmacy To Dose) 0 each IVPB PRN PRN PRN Reason: [facility] Pharmacy to Dose Morphine Sulfate (Morphine) 2 mg SLOW IVP Q1H PRN PRN Reason: BREAKTHROUGH PAIN/Agitation Stop: 05/14/18 19:28 Discontinue Previous Narcotic Pain Medications And Benzodiazepines 1 each FS .ONE [facility] Stop: 05/14/18 19:28 Clozaril 100 Mg Tab 4 each PO HS [facility] Propofol (Diprivan) 1,000 mg IV INF PRN; Protocol PRN Reason: TO ACHIEVE GOAL RASS Stop: 05/14/18 19:28 Propofol (Diprivan Bolus) 20 mg IV Q5MIN PRN PRN Reason: BREAKTHROUGH AGITATION Stop: 05/14/18 19:28 Sodium Bicarbonate (Bicarbonate, Sodium) 650 mg PER TUBE .PER PROTOCOL PRN PRN Reason: ENTERAL TUBE OCCLUSION Sodium Chloride (Flush - Normal Saline) 10 ml IVF PRN PRN PRN Reason: Saline Flush Sodium Chloride (Flush - Normal Saline) 10 ml IVF Q12HR [facility] Last Admin: 04/17/18 09:37 Dose: 10 ml
[2018-04-18] MEDS: Insulin Regular 300 UNITS/3 ML VIAL SC PRN ×4 (01:38→18:40)
[2018-04-18 01:46] LABS: Vancomycin, Trough 40.6 ug/mL
[2018-04-18] MEDS: Vancomycin HCl 1.25 GM in Sodium Chloride 0.9% 250 ML 250 ML IVPB SCH (02:08)
[2018-04-18] MEDS: Dextrose 5 % And 0.9 % NaCl 1,000 ML IV SCH ×2 (04:57→12:35)
[2018-04-18] MEDS: Piperacillin/Tazobactam 3.375 GM in Sodium Chloride 0.9% 100 ML IVPB SCH ×3 (05:31→18:31)
[2018-04-18 06:47] LABS: Mean Corpuscular HGB CONC 29.8 g/dL (32.0-36.0); Mean Corpuscular Hemoglobin 30.1 pg (27.0-31.0); Mean Platelet Volume 5.9 fL (7.4-10.4); Platelet Count 435 thou/uL (130-400); RBC Distribution Width 14.4 % (11.5-14.5); Red Blood Cell (RBC) Count 2.34 mill/uL (4.20-5.40); White Blood Cell (WBC) Count 18.8 thou/uL (4.8-10.8)
[2018-04-18 06:53] LABS: ALT (SGPT) 10 U/L (8-55); AST (SGOT) 16 U/L (5-34); Albumin 2.4 g/dL (3.5-5.0); Alkaline Phosphatase 66 U/L (40-150); Anion Gap 12 mmol/L (10-20); BUN (Urea Nitrogen) 33 mg/dL (9.8-20.1); Bilirubin, Total 0.2 mg/dL (0.2-1.2); Calc. Creatinine Clearance 54 mL/min (70-130); Calcium 8.4 mg/dL (7.8-10.44); Carbon Dioxide 25 mmol/L (22-29); Chloride 110 mmol/L (98-107); Estimated GFR-MDRD 26; Globulin 3.5 g/dL (2.4-3.5); Glucose 303 mg/dL (70-105); Potassium 4.2 mmol/L (3.5-5.1); Protein, Total 5.9 g/dL (6.0-8.3); Sodium 143 mmol/L (136-145)
[2018-04-18 07:01] LABS: Base Excess (BEa) 0.7 mEq/L (-2.0 to +3.0); CO2 Tension 53.2 mmHg (35.0-45.0); Calcium, Ionized 1.18 mmol/L (1.12-1.30); Carboxyhemoglobin (COHb) 1.4 gm% (0.0-3.0); Hemoglobin (Hb) 7.1 g/dL (12.0-16.0); O2 Tension (PaO2) 73.6 mmHg (> 80.0); Potassium - ABG Lab 4.31 mmol/L (3.70-5.30); pH, Arterial 7.32 (7.35-7.45)
[2018-04-18 07:06] LABS: Puncture Site LRA
[2018-04-18] MEDS ORDERED: Insulin Glargine 10 UNITS in Pre-Filled Syringe 1 EACH SC SCH (07:30)
[2018-04-18 07:39] LABS: Band 4 % (5-11); Lymphocytes 3 % (21-51); MDiff Complete? YES; Macrocytosis SLIGHT = 6-15 cells (100X) (0-5/hpf); Metamyelocyte 1 % (0-0); Neutrophil 92 % (42-75); PLT Morphology Comment Appears Increased; Polychromasia SLIGHT = 2-3 cells (100X) (0-2/hpf)
[2018-04-18] MEDS: Budesonide 0.5 MG/2 ML NEB INH SCH ×2 (07:44→18:18)
--- NOTE | 2018-04-18 09:04 | RAD ---
PORTABLE CHEST: History: Shortness of breath. CCU patient with daily follow up. Comparison: 04-17-18 FINDINGS: Opacification of the right lung base is again noted. Findings indicate effusion and right basilar inf iltrate or consolidation. Left lung appears clear with evidence of mild left basilar atelectasis, sta ble from yesterday. ET tube and NG tube remain in place. IMPRESSION: No acute change from yesterday. POS: [facility]
[2018-04-18 09:21] LABS: Reticulocyte Count 2.1 % (0.5-1.5)
[2018-04-18 09:22] LABS: Iron 47 ug/dL (50-170); Iron Binding Capacity, Total 139 mcg/dL (265-497)
[2018-04-18] MEDS: Famotidine/PF 20 mg/2ml Vial SLOW IVP SCH ×2 (09:30→20:43)
[2018-04-18] MEDS: Insulin Glargine 10 UNITS in Pre-Filled Syringe 1 EACH SC SCH (09:31)
[2018-04-18] MEDS: lamoTRIgine 25 MG TAB PER TUBE SCH ×2 (09:31→20:43)
[2018-04-18] MEDS ORDERED: ALL ABX IVPB PRN (09:39)
[2018-04-18] MEDS: Sodium Chloride 0.45% 1,000 ML IV SCH (14:56)
--- NOTE | 2018-04-18 17:36 | PDOC.PN ---
- Subjective Encounter Start Date: 04/18/18 Encounter Start Time: 10:45 -: non-verbal Patient seen and examined for Resp failure. No overnight events - Objective MAR Reviewed: Yes Vital Signs & Weight: Vital Signs (12 hours) Temp Pulse Resp BP Pulse Ox 04/18/18 16:00 98 F 15 04/18/18 14:19 93 147/86 H 04/18/18 14:17 94 14 99 04/18/18 14:00 14 04/18/18 13:30 98 F 99 04/18/18 12:00 98 F 14 04/18/18 11:05 98 F 98 04/18/18 10:48 98.1 F 97 135/79 99 04/18/18 10:45 96 11 L 99 04/18/18 10:00 10 L 04/18/18 08:00 98.1 F 10 L 98 04/18/18 06:39 98 14 99 04/18/18 06:00 16 Weight Admit Weight 245 lb Weight 245 lb 2.464 oz Most Recent Monitor Data Heart Rate from ECG 99 NIBP 140/86 NIBP BP-Mean 104 Respiration from ECG 10 SpO2 96 I&O: 04/17/18 04/18/18 04/19/18 06:59 06:59 06:59 Intake Total 2779.4 3806.4 1111 Output Total 928 651 620 Balance 1851.4 3155.4 491 Result Diagrams: 04/18/18 06:28 04/18/18 06:28 Additional Labs: Accuchecks 04/18/18 04/18/18 04/18/18 12:07 05:47 01:21 POC Glucose 329 H 304 H 282 H 04/17/18 18:03 POC Glucose 215 H EKG Reviewed by me: Yes (Tele SR) Phys Exam - Physical Examination Pt on mech Vent Respiratory: no wheezing Rhonchi and rales at bases R> L Cardiovascular: RRR, no rub Gastrointestinal: soft, positive bowel sounds Dx/Plan - Plan DVT proph w/SCDs 1. Acute hypoxic and hypercapnic respiratory failure secondary to pneumonia,? Aspiration pneumonia - on Mech Vent s/p Bronch 2. Toxic metabolic encephalopathy, multifactorial. 3. Sepsis with acute organ dysfunction secondary to pneumonia.?Aspiration 4. Anemia of unclear etiology. 5. COPD exacerbation. 6. GILMER on CKD 2. 7. Chronic pain syndrome. 8. Diabetes mellitus type 2. 9. Hyperlipidemia. 10. Anxiety and schizophrenia. 11. Hypertension. 12. History of breast cancer. 13. History of seizure disorder. 14. Obstructive sleep apnea, on BiPAP at home per previous record. PLAN: Cont Vent support/Nebs/Atbx/Steroids Transfuse 1 unit PRBC AM labs Cont sliding scale Cont other meds as below Not on Lovenox due to low Hemoglobin Reti ct and iron profile done Laboratory Tests 04/18/18 04/18/18 04/18/18 01:10 06:28 06:28 Retic Count 2.1 H Iron 47 L TIBC 139 L Ferritin 591.96 H Review of Systems - Review of Systems Other: Cannot obtain due to sedation - Medications/Allergies Allergies/Adverse Reactions: Allergies Allergy/AdvReac Type Severity Reaction Status Date / Time codeine Allergy Verified 04/14/18 23:04 duloxetine [From Cymbalta] Allergy Verified 04/14/18 23:04 gabapentin Allergy Verified 04/14/18 23:04 pregabalin [From Lyrica] Allergy Verified 04/14/18 23:04 Medications: Current Medications Acetaminophen (Tylenol Elixir) 650 mg PO Q6H PRN PRN Reason: Fever > 101 or Mild Pain Acetaminophen (Tylenol) 650 mg [place] Q6H PRN PRN Reason: Fever > 101 or Mild Pain Last Admin: 04/15/18 03:15 Dose: 650 mg Albuterol/Ipratropium (Duoneb) 3 ml NEB [id number] [facility] Last Admin: 04/18/18 14:17 Dose: 3 ml Albuterol/Ipratropium (Duoneb) 3 ml NEB Q2H PRN PRN Reason: SOB &/or Wheezing Lipase/Protease/Amylase ([place] [id number]) 1 cap FS .PER PROTOCOL PRN PRN Reason: TUBE OCCLUSION PROTOCOL Bisacodyl (Dulcolax) 10 mg [place] DAILYPRN PRN PRN Reason: Constipation Budesonide (Pulmicort Neb Solution) 0.5 mg INH BID-RT [facility] Last Admin: 04/18/18 07:44 Dose: 0.5 mg Dextrose/Water (Dextrose 50%) 25 gm SLOW IVP PRN PRN PRN Reason: Hypoglycemia Famotidine (Pepcid) 20 mg SLOW IVP Q12HR [facility] Last Admin: 04/18/18 09:30 Dose: 20 mg Glucagon (Glucagon) 1 mg IM PRN PRN PRN Reason: Hypoglycemia Piperacillin Sod/Tazobactam (Sod 3.375 gm/ Sodium Chloride) 100 mls @ 200 mls/ hr IVPB Q6HR [facility] Last Admin: 04/18/18 12:27 Dose: 100 mls Dextrose/Water (D5w) 1,000 mls @ 0 mls/hr IV .Q0M PRN PRN Reason: Hypoglycemia Insulin Glargine 10 units/ (Miscellaneous Medication) 0.1 mls @ 0 mls/hr SC HS [facility] Last Admin: 04/17/18 20:50 Dose: 0.1 mls Fentanyl Citrate (Fentanyl Bolus) 250 mls @ 0 mls/hr IVPB PRN PRN PRN Reason: Breakthrough pain/agitation Stop: 05/14/18 19:28 Fentanyl Citrate 2,000 mcg/ (Sodium Chloride) 100 mls @ 0 mls/hr IV INF [facility]; Protocol Stop: 05/14/18 19:30 Last Admin: 04/17/18 17:13 Dose: 100 mls Vancomycin HCl 1.25 gm/ Sodium (Chloride) 250 mls @ 166.667 mls/hr IVPB .PENDING LEVEL [facility] Insulin Glargine 10 units/ (Miscellaneous Medication) 0.1 mls @ 0 mls/hr SC QAM [facility] Last Admin: 04/18/18 09:31 Dose: 0.1 mls Levofloxacin 750 mg/ Device 150 mls @ 100 mls/hr IVPB Q2D [facility] Sodium Chloride (1/2 Normal Saline) 1,000 mls @ 75 mls/hr IV .[id number] [facility] Last Admin: 04/18/18 14:56 Dose: 1,000 mls Insulin Human Regular (Humulin R) 0 units SC .BEDTIME SLIDING SC PRN PRN Reason: Bedtime Correctional Scale Last Admin: 04/18/18 01:38 Dose: 3 unit Insulin Human Regular (Humulin R) 0 units SC .MODERATE SLIDING SC PRN PRN Reason: Moderate Correctional Scale Last Admin: 04/18/18 12:28 Dose: 8 units Lamotrigine (Lamictal) 50 mg PER TUBE 08, [facility] Last Admin: 12/19/18 09:31 Dose: 50 mg Lorazepam (Ativan) 2 mg SLOW IVP Q1H PRN PRN Reason: Breakthrough agitation Stop: 05/14/18 19:28 Last Admin: 04/16/18 09:38 Dose: 2 mg Methylprednisolone Sodium Succinate (Solu-Medrol) 20 mg IVP Q6HR [facility] Last Admin: 04/18/18 12:29 Dose: 20 mg Mineral Oil/White Petrolatum (Systane Nighttime Eye Ointment) 0 gm EA EYE PRN PRN PRN Reason: Dry Eyes Miscellaneous Medication (Ventilator Sedation Protocol) 1 each FS ONE [facility] Stop: 05/14/18 19:16 Miscellaneous Medication (Pharmacy To Dose) 1 each IVPB PRN PRN PRN Reason: Pharmacy to dose Miscellaneous Medication (Pharmacy To Dose) 0 each IVPB PRN PRN PRN Reason: VANC Pharmacy to Dose Miscellaneous Medication (Pharmacy To Dose) 1 each IVPB DAILYPRN PRN PRN Reason: LABS Morphine Sulfate (Morphine) 2 mg SLOW IVP Q1H PRN PRN Reason: BREAKTHROUGH PAIN/Agitation Stop: 05/14/18 19:28 Discontinue Previous Narcotic Pain Medications And Benzodiazepines 1 each FS .ONE [facility] Stop: 05/14/18 19:28 Clozaril 100 Mg Tab 4 each PO HS [facility] Last Admin: 04/17/18 20:51 Dose: 4 each Propofol (Diprivan) 1,000 mg IV INF PRN; Protocol PRN Reason: TO ACHIEVE GOAL RASS Stop: 05/14/18 19:28 Propofol (Diprivan Bolus) 20 mg IV Q5MIN PRN PRN Reason: BREAKTHROUGH AGITATION Stop: 05/14/18 19:28 Sodium Bicarbonate (Bicarbonate, Sodium) 650 mg PER TUBE .PER PROTOCOL PRN PRN Reason: ENTERAL TUBE OCCLUSION Sodium Chloride (Flush - Normal Saline) 10 ml IVF PRN PRN PRN Reason: Saline Flush Sodium Chloride (Flush - Normal Saline) 10 ml IVF Q12HR [facility] Last Admin: 04/18/18 09:31 Dose: 10 ml
--- NOTE | 2018-04-18 17:53 | PRG ---
DATE OF SERVICE: 04/18/2018 SUBJECTIVE: Ms. Quan remains mechanically ventilated. She still has copious secretions and rhonchorous wheezes diffusely. OBJECTIVE: VITAL SIGNS: She is afebrile. Heart rate 63, blood pressure 132/ 58 and respiratory rates in the 20s. HEART AND ABDOMEN: Unchanged. EXTREMITIES: She has no significant lower extremity edema. Intake and output, positive 3155. LABORATORY DATA: White count 8.8, hemoglobin 7, blood has been ordered, platelets 435,000, MCV is 101. Sodium 143, potassium 4.2, chloride 110, bicarb 25, BUN 33 , and creatinine 1.93. Creatinine is more than doubled in spite of a positive fluid balance. IMPRESSION: 1. Pneumonia. 2. Reactive airways with her pneumonia. 3. Acute on chronic kidney disease. 4. Anemia of chronic disease. 5. Hypoalbuminemia. 6. Diabetes. 7. Deconditioning. I reviewed her chest radiograph, it is unchanged. Her blood gas is stable with a pH 7.32, CO2 of 53, pO2 of 73 on 30%, but her secretions probably make extubation not feasible at this time. Hopefully, this will start improving a little bit on a daily basis. Critical care time 30 minutes. Job ID: [id number] MTDD
[2018-04-18] MEDS: CLOZARIL 100 MG PO SCH (20:43)
[2018-04-18] MEDS: fentaNYL Citrate/PF 2,000 MCG in Sodium Chloride 0.9% 60 ML IV SCH (22:46)
[2018-04-19] MEDS: Piperacillin/Tazobactam 3.375 GM in Sodium Chloride 0.9% 100 ML IVPB SCH ×5 (00:28→23:44)
[2018-04-19 01:19] LABS: Vancomycin, Random 29.1 ug/mL (See Comment)
[2018-04-19] MEDS ORDERED: Vancomycin HCl 1.25 GM in Sodium Chloride 0.9% 250 ML 250 ML IVPB SCH (02:00)
[2018-04-19] MEDS: Insulin Regular 300 UNITS/3 ML VIAL SC PRN ×4 (02:20→18:11)
[2018-04-19] MEDS: Sodium Chloride 0.45% 1,000 ML IV SCH ×2 (04:04→18:16)
[2018-04-19 04:30] LABS: Band 18 % (5-11); Hemoglobin 8.5 g/dL (12.0-16.0); Lymphocytes 5 % (21-51); MDiff Complete? YES; Mean Corpuscular HGB CONC 31.1 g/dL (32.0-36.0); Mean Corpuscular Hemoglobin 30.4 pg (27.0-31.0); Mean Platelet Volume 6.3 fL (7.4-10.4); Metamyelocyte 2 % (0-0); Monocytes 1 % (0-10); Myelocyte 1 % (0-0); Neutrophil 73 % (42-75); PLT Morphology Comment Appears Increased; Platelet Count 434 thou/uL (130-400); RBC Distribution Width 15.3 % (11.5-14.5); Red Blood Cell (RBC) Count 2.79 mill/uL (4.20-5.40); White Blood Cell (WBC) Count 16.8 thou/uL (4.8-10.8)
[2018-04-19 04:32] LABS: Anion Gap 16 mmol/L (10-20); BUN (Urea Nitrogen) 46 mg/dL (9.8-20.1); Calc. Creatinine Clearance 55 mL/min (70-130); Calcium 8.5 mg/dL (7.8-10.44); Carbon Dioxide 24 mmol/L (22-29); Chloride 110 mmol/L (98-107); Estimated GFR-MDRD 27; Glucose 260 mg/dL (70-105); Potassium 5.2 mmol/L (3.5-5.1); Sodium 145 mmol/L (136-145)
[2018-04-19] MEDS: Budesonide 0.5 MG/2 ML NEB INH SCH ×2 (06:15→18:38)
[2018-04-19 06:23] LABS: Calcium, Ionized 1.19 mmol/L (1.12-1.30); Carboxyhemoglobin (COHb) 0.8 gm% (0.0-3.0); Hemoglobin (Hb) 9.3 g/dL (12.0-16.0); O2 Tension (PaO2) 74.1 mmHg (> 80.0); Potassium - ABG Lab 4.63 mmol/L (3.70-5.30); pH, Arterial 7.29 (7.35-7.45)
[2018-04-19 06:24] LABS: Puncture Site LRA
[2018-04-19] MEDS ORDERED: Lidocaine 1% (PF) 30 ML VIAL ONE (08:22)
[2018-04-19] MEDS: Lorazepam 2 MG/ML VIAL SLOW IVP PRN (08:28)
--- NOTE | 2018-04-19 08:47 | RAD ---
CHEST ONE VIEW: History: Ventilated patient. Comparison: Radiograph prior day. FINDINGS: Endotracheal tube tip is at the level of the clavicles. Enteric tube tip not well seen. Large layering right pleural effusion. Small left effusion. Heart size is enlarged. Mild pulmonary ve nous congestion. IMPRESSION: Similar exam. POS: [facility]
[2018-04-19] MEDS: Famotidine/PF 20 mg/2ml Vial SLOW IVP SCH ×2 (09:11→20:25)
[2018-04-19] MEDS: lamoTRIgine 25 MG TAB PER TUBE SCH ×2 (09:11→21:42)
[2018-04-19] MEDS: Insulin Glargine 10 UNITS in Pre-Filled Syringe 1 EACH SC SCH (09:12)
--- NOTE | 2018-04-19 10:10 | RAD ---
CHEST ONE VIEW: HISTORY: Chest tube placement. COMPARISON: 04/19/2018 at 4:24 a.m. FINDINGS: There is an endotracheal tube and a nasogastric tube, which are redemonstrated. Interval placement o f right-sided chest tube. The degree of opacification of the right hemithorax has slightly decreased . There does appear to be a small right apical pneumothorax. Stable aeration of the left lung. IMPRESSION: Interval placement of right-sided chest tube. Slight improved aeration of the right lung; however, t here does appear to be a small right apical pneumothorax. POS: [facility]
--- NOTE | 2018-04-19 13:23 | CON ---
DATE OF CONSULTATION: HISTORY OF PRESENT ILLNESS: This is a 62-year-old female, who hospitalized earlier this year for possible right-sided pneumonia. She was readmitted after being found down at home, requiring intubation. She had a chest x-ray showing right-sided infiltrate and pleural effusion, and CT scan confirming the same as well as showing a possible lung abscess. I was asked to see her to place a chest tube in case she was developing a parapneumonic infected effusion/empyema. PAST MEDICAL HISTORY: Past medical history is obtained from records as the patient is intubated and sedated. She has a history of obstructive sleep apnea, type 2 diabetes mellitus, chronic pain syndrome, obesity, schizophrenia, and hyperlipidemia. PAST SURGICAL HISTORY: Includes bilateral mastectomy, hysterectomy, ventral hernia repair, right leg surgery, and cervical and lumbar surgery. SOCIAL HISTORY: She evidently lives alone. I have many conversation with her sister in regard to permission to place a chest tube. Informed consent has been obtained for this. Job ID: [id number]
[2018-04-19] MEDS: CLOZARIL 100 MG PO SCH (21:42)
--- NOTE | 2018-04-19 21:43 | PDOC.PN ---
- Subjective Encounter Start Date: 04/19/18 Encounter Start Time: 10:00 -: non-verbal Patient seen and examined for Resp failure/Pneumonia. On [facility] Vent. No overnight events - Objective MAR Reviewed: Yes Vital Signs & Weight: Vital Signs (12 hours) Temp Pulse Pulse Pulse Resp BP BP 04/19/18 18:38 80 14 04/19/18 18:37 80 14 04/19/18 18:00 12 04/19/18 16:00 98.4 F 12 04/19/18 14:48 93 80 160/88 H 04/19/18 14:36 79 169/71 H 04/19/18 14:35 80 12 04/19/18 14:00 12 04/19/18 12:00 98.6 F 12 04/19/18 10:24 78 168/86 H 04/19/18 10:23 78 12 04/19/18 10:00 12 BP Pulse Ox Pulse Ox Pulse Ox 04/19/18 18:38 98 04/19/18 18:37 98 04/19/18 18:00 04/19/18 16:00 04/19/18 14:48 164/87 H 98 98 04/19/18 14:36 04/19/18 14:35 99 04/19/18 14:00 04/19/18 12:00 99 04/19/18 10:24 04/19/18 10:23 99 04/19/18 10:00 Weight Admit Weight 245 lb Weight 245 lb 2.464 oz Most Recent Monitor Data Heart Rate from ECG 83 NIBP 162/81 NIBP BP-Mean 108 Respiration from ECG 14 SpO2 98 I&O: 04/18/18 04/19/18 04/20/18 06:59 06:59 06:59 Intake Total 3806.4 3843 1697 Output Total 651 1435 1175 Balance 3155.4 2408 522 Result Diagrams: 04/20/18 04:37 04/20/18 04:37 Additional Labs: Accuchecks 04/19/18 04/19/18 04/19/18 18:11 13:43 06:00 POC Glucose 292 H 244 H 272 H 04/19/18 01:15 POC Glucose 259 H Radiology Reviewed by me: Yes (CXR - Rt sided pleural eff) EKG Reviewed by me: Yes (Tele SR) Phys Exam - Physical Examination Constitutional: NAD Respiratory: no wheezing Rales and rhonchi at Rt base Cardiovascular: RRR, no rub Gastrointestinal: soft, positive bowel sounds Musculoskeletal: no edema Dx/Plan - Plan DVT proph w/SCDs 1. Acute hypoxic and hypercapnic respiratory failure secondary to pneumonia,? Aspiration pneumonia - on [facility] Vent s/p Bronch 2. Toxic metabolic encephalopathy, multifactorial. 3. Sepsis with acute organ dysfunction secondary to pneumonia.?Aspiration with parapneumonic effusion s/p chest tube placement 04/19 4. Anemia of unclear etiology. 5. COPD exacerbation. 6. GILMER on CKD 2. 7. Chronic pain syndrome. 8. Diabetes mellitus type 2. 9. Hyperlipidemia. 10. Anxiety and schizophrenia. 11. Hypertension. 12. History of breast cancer. 13. History of seizure disorder. 14. Obstructive sleep apnea, on BiPAP at home per previous record. PLAN: Chest tube placed Cont Vent support Cont Nebs/Atbx/Steroids AM labs Cont other meds as below Not on Lovenox due to low Hemoglobin Review of Systems - Review of Systems Other: Cannot obtain due to current mentation. - Medications/Allergies Allergies/Adverse Reactions: Allergies Allergy/AdvReac Type Severity Reaction Status Date / Time codeine Allergy Verified 04/14/18 23:04 duloxetine [From Cymbalta] Allergy Verified 04/14/18 23:04 gabapentin Allergy Verified 04/14/18 23:04 pregabalin [From Lyrica] Allergy Verified 04/14/18 23:04 Medications: Current Medications Acetaminophen (Tylenol Elixir) 650 mg PO Q6H PRN PRN Reason: Fever > 101 or Mild Pain Acetaminophen (Tylenol) 650 mg [place] Q6H PRN PRN Reason: Fever > 101 or Mild Pain Last Admin: 04/15/18 03:15 Dose: 650 mg Albuterol/Ipratropium (Duoneb) 3 ml NEB [id number] ODETTE Last Admin: 04/19/18 18:37 Dose: 3 ml Albuterol/Ipratropium (Duoneb) 3 ml NEB Q2H PRN PRN Reason: SOB &/or Wheezing Lipase/Protease/Amylase (Sarah [place]f [id number]) 1 cap FS .PER PROTOCOL PRN PRN Reason: TUBE OCCLUSION PROTOCOL Bisacodyl (Dulcolax) 10 mg [place] DAILYPRN PRN PRN Reason: Constipation Budesonide (Pulmicort Neb Solution) 0.5 mg INH BID-RT [facility] Last Admin: 04/19/18 18:38 Dose: 0.5 mg Dextrose/Water (Dextrose 50%) 25 gm SLOW IVP PRN PRN PRN Reason: Hypoglycemia Famotidine (Pepcid) 20 mg SLOW IVP Q12HR [facility] Last Admin: 04/19/18 20:25 Dose: 20 mg Glucagon (Glucagon) 1 mg IM PRN PRN PRN Reason: Hypoglycemia Piperacillin Sod/Tazobactam (Sod 3.375 gm/ Sodium Chloride) 100 mls @ 200 mls/ hr IVPB Q6HR [facility] Last Admin: 04/19/18 18:01 Dose: 100 mls Dextrose/Water (D5w) 1,000 mls @ 0 mls/hr IV .Q0M PRN PRN Reason: Hypoglycemia Fentanyl Citrate (Fentanyl Bolus) 250 mls @ 0 mls/hr IVPB PRN PRN PRN Reason: Breakthrough pain/agitation Stop: 05/14/18 19:28 Fentanyl Citrate 2,000 mcg/ (Sodium Chloride) 100 mls @ 0 mls/hr IV INF ODETTE; Protocol Stop: 05/14/18 19:30 Last Admin: 04/18/18 22:46 Dose: 100 mls Insulin Glargine 10 units/ (Miscellaneous Medication) 0.1 mls @ 0 mls/hr SC QAM [facility] Last Admin: 04/19/18 09:12 Dose: 0.1 mls Levofloxacin 750 mg/ Device 150 mls @ 100 mls/hr IVPB Q2D [facility] Last Admin: 04/19/18 20:25 Dose: 150 mls Sodium Chloride (1/2 Normal Saline) 1,000 mls @ 75 mls/hr IV .[id number] [facility] Last Admin: 04/19/18 18:16 Dose: 1,000 mls Insulin Human Regular (Humulin R) 0 units SC .BEDTIME SLIDING SC PRN PRN Reason: Bedtime Correctional Scale Last Admin: 04/19/18 02:20 Dose: 3 unit Insulin Human Regular (Humulin R) 0 units SC .MODERATE SLIDING SC PRN PRN Reason: Moderate Correctional Scale Last Admin: 04/19/18 18:11 Dose: 6 units Lamotrigine (Lamictal) 50 mg PER TUBE 08,20 [facility] Last Admin: 04/19/18 09:11 Dose: 50 mg Lorazepam (Ativan) 2 mg SLOW IVP Q1H PRN PRN Reason: Breakthrough agitation Stop: 05/14/18 19:28 Last Admin: 04/19/18 08:28 Dose: 2 mg Methylprednisolone Sodium Succinate (Solu-Medrol) 20 mg IVP Q6HR [facility] Last Admin: 04/19/18 18:00 Dose: 20 mg Mineral Oil/White Petrolatum (Systane Nighttime Eye Ointment) 0 gm EA EYE PRN PRN PRN Reason: Dry Eyes Miscellaneous Medication (Ventilator Sedation Protocol) 1 each FS ONE [facility] Stop: 05/14/18 19:16 Miscellaneous Medication (Pharmacy To Dose) 1 each IVPB PRN PRN PRN Reason: Pharmacy to dose Miscellaneous Medication (Pharmacy To Dose) 0 each IVPB PRN PRN PRN Reason: VANC Pharmacy to Dose Miscellaneous Medication (Pharmacy To Dose) 1 each IVPB DAILYPRN PRN PRN Reason: LABS Morphine Sulfate (Morphine) 2 mg SLOW IVP Q1H PRN PRN Reason: BREAKTHROUGH PAIN/Agitation Stop: 05/14/18 19:28 Discontinue Previous Narcotic Pain Medications And Benzodiazepines 1 each FS .ONE [facility] Stop: 05/14/18 19:28 Clozaril 100 Mg Tab 4 each PO HS [facility] Last Admin: 04/18/18 20:43 Dose: 4 each Propofol (Diprivan) 1,000 mg IV INF PRN; Protocol PRN Reason: TO ACHIEVE GOAL RASS Stop: 05/14/18 19:28 Propofol (Diprivan Bolus) 20 mg IV Q5MIN PRN PRN Reason: BREAKTHROUGH AGITATION Stop: 05/14/18 19:28 Sodium Bicarbonate (Bicarbonate, Sodium) 650 mg PER TUBE .PER PROTOCOL PRN PRN Reason: ENTERAL TUBE OCCLUSION Sodium Chloride (Flush - Normal Saline) 10 ml IVF PRN PRN PRN Reason: Saline Flush Sodium Chloride (Flush - Normal Saline) 10 ml IVF Q12HR [facility] Last Admin: 04/19/18 09:12 Dose: 10 ml
[2018-04-19 22:00] LABS: Vancomycin, Random 21.7 ug/mL (See Comment)
[2018-04-20] MEDS: Insulin Regular 300 UNITS/3 ML VIAL SC PRN ×4 (00:38→17:48)
[2018-04-20] MEDS: Piperacillin/Tazobactam 3.375 GM in Sodium Chloride 0.9% 100 ML IVPB SCH ×3 (05:08→17:50)
[2018-04-20 05:11] LABS: Hemoglobin 8.8 g/dL (12.0-16.0); Mean Corpuscular HGB CONC 31.4 g/dL (32.0-36.0); Mean Corpuscular Hemoglobin 30.3 pg (27.0-31.0); Mean Corpuscular Volume 96.6 fL (78.0-98.0); Platelet Count 418 thou/uL (130-400); White Blood Cell (WBC) Count 13.4 thou/uL (4.8-10.8)
[2018-04-20 05:24] LABS: Anion Gap 13 mmol/L (10-20); BUN (Urea Nitrogen) 58 mg/dL (9.8-20.1); Calc. Creatinine Clearance 57 mL/min (70-130); Calcium 8.7 mg/dL (7.8-10.44); Carbon Dioxide 25 mmol/L (22-29); Chloride 110 mmol/L (98-107); Estimated GFR-MDRD 28; Glucose 279 mg/dL (70-105); Potassium 4.4 mmol/L (3.5-5.1); Sodium 144 mmol/L (136-145)
[2018-04-20 05:40] LABS: Band 10 % (5-11); Lymphocytes 4 % (21-51); MDiff Complete? YES; Metamyelocyte 1 % (0-0); Monocytes 2 % (0-10); Myelocyte 2 % (0-0); Neutrophil 81 % (42-75)
[2018-04-20] MEDS: Budesonide 0.5 MG/2 ML NEB INH SCH ×2 (06:21→18:31)
[2018-04-20 07:21] LABS: Actual Bicarbonate (HCO3a) 27.5 mEq/L (22-28); Base Excess (BEa) 1.5 mEq/L (-2.0 to +3.0); CO2 Tension 50.5 mmHg (35.0-45.0); Carboxyhemoglobin (COHb) 0.9 gm% (0.0-3.0); Hemoglobin (Hb) 9.3 g/dL (12.0-16.0); O2 Tension (PaO2) 75.3 mmHg (> 80.0); Potassium - ABG Lab 4.49 mmol/L (3.70-5.30); Puncture Site LRA; pH, Arterial 7.35 (7.35-7.45)
[2018-04-20 07:22] LABS: ALV-art Gradient 75.475 (0-20)
--- NOTE | 2018-04-20 08:06 | PRG ---
DATE OF SERVICE: 04/19/2018 OBJECTIVE: VITAL SIGNS: Miley Quan has been afebrile. Heart rates is the in 80s. Blood pressures been little elevated in the 160 to 170 range. Intake and output 2408. LUNGS: Remarkable still for rhonchi on the right more than left. HEART: Regular rhythm. ABDOMEN: Soft. EXTREMITIES: Without asymmetry. LABORATORY DATA: White count 16.8, hemoglobin 8.5; after blood yesterday, hemoglobin of 7, platelets 434. Sodium 145, potassium 5.2, chloride 110, bicarb 24, BUN 46, creatinine 1.91. Creatinine was 0.8 on admission. IMPRESSION: 1. Pneumonia. Blood cultures remain negative. 2. Pleural effusion seen on CT several days back. Some of this looks like it may be getting organized. The best option in my opinion will be chest tube placement. This was graciously performed by Dr. Ruvalcaba earlier today. 3. Deconditioning by report prior to admission. 4. Acute kidney injury on top of probable chronic kidney disease. 5. Diabetes. 6. We will stop vancomycin. There is no indication that this is a Staph sepsis or staphylococcal pneumonia. Bronchial washings did not grow out Staph. 7. Consider continue IV antibiotics for now. PH today is 7.29, CO2 57, pO2 74. In my opinon, she is not weanable yet. Job ID: [id number]
[2018-04-20] MEDS ORDERED: Labetalol HCl 100 MG/20 ML VIAL ONE (08:11)
[2018-04-20] MEDS: Famotidine/PF 20 mg/2ml Vial SLOW IVP SCH ×2 (08:14→23:02)
[2018-04-20] MEDS: Insulin Glargine 10 UNITS in Pre-Filled Syringe 1 EACH SC SCH (08:15)
[2018-04-20] MEDS: lamoTRIgine 25 MG TAB PER TUBE SCH ×2 (08:15→23:03)
[2018-04-20] MEDS: Sodium Chloride 0.45% 1,000 ML IV SCH ×2 (08:15→23:03)
--- NOTE | 2018-04-20 08:51 | RAD ---
PORTABLE CHEST: Date: 04/20/18 HISTORY: CCU follow-up. On ventilator. COMPARISON: 04/19/18. FINDINGS: ET tube and NG tube remain in place. There is a moderate size right effusion with right basilar opaci fication, unchanged. The right chest tube is again noted and appears to have been repositioned. Left lung shows vascular congestion and patchy infiltrate or atelectasis in the left lung base, stable. IMPRESSION: No acute interval change. POS: TPC
[2018-04-20] MEDS: fentaNYL Citrate/PF 2,000 MCG in Sodium Chloride 0.9% 60 ML IV SCH (08:56)
[2018-04-20] MEDS: Lorazepam 2 MG/ML VIAL SLOW IVP PRN (13:59)
--- NOTE | 2018-04-20 14:45 | PRG ---
DATE OF SERVICE: 04/20/2018 SUBJECTIVE: Miley Quan is unchanged clinically. OBJECTIVE: VITAL SIGNS: Blood pressure 142/81, heart rate 79, and respiratory rate 16. LUNGS: Remarkable for decreased breath sounds on the right. Left lung is clear. HEART: Regular rhythm. S1 and S2 normal. ABDOMEN: Soft and nontender. EXTREMITIES: Without edema. Intake and output, negative 200 mL. Chest tube drainage out was 370 mL. LABORATORY DATA: White count 13.4, hemoglobin 8.8, and platelets 418,000. Sodium 144, potassium 4.4, chloride 110, bicarb 25, BUN 58, creatinine 1.84. Creatinine was 0.7 on admission. Blood gas reviewed shows a pH 7.35, CO2 of 50, PO2 of 75. We will continue with supportive care. IMPRESSION: 1. Pneumonia. 2. Parapneumonic effusion, status post chest tube placement. Cultures are negative so far. 3. Respiratory failure, currently not weanable. 4. Underlying obstructive lung disease. 5. Deconditioning. 6. Reactive thrombocytosis. 7. [id number] kidney disease. 8. Diabetes. Job ID: [id number]
[2018-04-20] MEDS: CLOZARIL 100 MG PO SCH (23:03)
--- NOTE | 2018-04-20 23:05 | PDOC.PN ---
- Subjective Encounter Start Date: 04/20/18 Encounter Start Time: 10:00 -: non-verbal Patient seen and examined for Resp failure. No overnight events - Objective MAR Reviewed: Yes Vital Signs & Weight: Vital Signs (12 hours) Temp Pulse Resp BP Pulse Ox 04/20/18 22:07 79 04/20/18 22:06 80 21 H 98 04/20/18 18:32 78 04/20/18 18:31 77 12 99 04/20/18 17:58 12 04/20/18 16:00 98.0 F 12 04/20/18 15:54 77 151/87 H 04/20/18 13:55 17 04/20/18 13:45 82 142/81 H 04/20/18 12:00 98.5 F 12 04/20/18 11:10 76 153/75 H Weight Admit Weight 245 lb Weight 259 lb 4.218 oz Most Recent Monitor Data Heart Rate from ECG 80 NIBP 159/74 NIBP BP-Mean 102 Respiration from ECG 15 SpO2 98 I&O: 04/19/18 04/20/18 04/21/18 06:59 06:59 06:59 Intake Total 3843 2270 1950 Output Total 1435 2470 830 Balance 2408 -200 1120 Result Diagrams: 04/20/18 04:37 04/20/18 04:37 Additional Labs: Accuchecks 04/20/18 04/20/18 04/20/18 21:46 17:48 12:03 POC Glucose 224 H 222 H 276 H 04/20/18 04/20/18 05:46 00:36 POC Glucose 284 H 297 H EKG Reviewed by me: Yes (Tele SR) Phys Exam - Physical Examination Constitutional: NAD on Vent Respiratory: no wheezing Rales and rhonchi on the Rt. Cardiovascular: RRR, no rub Gastrointestinal: soft, positive bowel sounds Dx/Plan - Plan DVT proph w/SCDs 1. Acute hypoxic and hypercapnic respiratory failure secondary to pneumonia,? Aspiration pneumonia - on Mech Vent s/p Bronch 2. Toxic metabolic encephalopathy, multifactorial. 3. Sepsis with acute organ dysfunction secondary to pneumonia.?Aspiration with parapneumonic effusion s/p chest tube placement 04/19 4. Anemia of unclear etiology. s/p 1 unit PRBC 5. COPD exacerbation. 6. GILMER on CKD 2. 7. Chronic pain syndrome. 8. Diabetes mellitus type 2. 9. Hyperlipidemia. 10. Anxiety and schizophrenia. 11. Hypertension. 12. History of breast cancer. 13. History of seizure disorder. 14. Obstructive sleep apnea, on BiPAP at home per previous record. PLAN: Cont current Atbx Cont Vent support Cont Nebs/Steroids AM labs Cont other meds as below Lovenox on hold due to low Hemoglobin requiring transfusion. Review of Systems - Review of Systems Other: Cannot obtain due to current mentation. - Medications/Allergies Allergies/Adverse Reactions: Allergies Allergy/AdvReac Type Severity Reaction Status Date / Time codeine Allergy Verified 04/14/18 23:04 duloxetine [From Cymbalta] Allergy Verified 04/14/18 23:04 gabapentin Allergy Verified 04/14/18 23:04 pregabalin [From Lyrica] Allergy Verified 04/14/18 23:04 Medications: Current Medications Acetaminophen (Tylenol Elixir) 650 mg PO Q6H PRN PRN Reason: Fever > 101 or Mild Pain Acetaminophen (Tylenol) 650 mg [place] Q6H PRN PRN Reason: Fever > 101 or Mild Pain Last Admin: 04/15/18 03:15 Dose: 650 mg Albuterol/Ipratropium (Duoneb) 3 ml NEB [id number] ODETTE Last Admin: 04/20/18 22:06 Dose: 3 ml Albuterol/Ipratropium (Duoneb) 3 ml NEB Q2H PRN PRN Reason: SOB &/or Wheezing Lipase/Protease/Amylase ([place]f [id number]) 1 cap FS .PER PROTOCOL PRN PRN Reason: TUBE OCCLUSION PROTOCOL Bisacodyl (Dulcolax) 10 mg [place] DAILYPRN PRN PRN Reason: Constipation Budesonide (Pulmicort Neb Solution) 0.5 mg INH BID-RT [facility] Last Admin: 04/20/18 18:31 Dose: 0.5 mg Dextrose/Water (Dextrose 50%) 25 gm SLOW IVP PRN PRN PRN Reason: Hypoglycemia Famotidine (Pepcid) 20 mg SLOW IVP Q12HR [facility] Last Admin: 04/20/18 23:02 Dose: 20 mg Glucagon (Glucagon) 1 mg IM PRN PRN PRN Reason: Hypoglycemia Piperacillin Sod/Tazobactam (Sod 3.375 gm/ Sodium Chloride) 100 mls @ 200 mls/ hr IVPB Q6HR [facility] Last Admin: 04/20/18 17:50 Dose: 100 mls Dextrose/Water (D5w) 1,000 mls @ 0 mls/hr IV .Q0M PRN PRN Reason: Hypoglycemia Fentanyl Citrate (Fentanyl Bolus) 250 mls @ 0 mls/hr IVPB PRN PRN PRN Reason: Breakthrough pain/agitation Stop: 05/14/18 19:28 Fentanyl Citrate 2,000 mcg/ (Sodium Chloride) 100 mls @ 0 mls/hr IV INF ODETTE; Protocol Stop: 05/14/18 19:30 Last Admin: 04/20/18 08:56 Dose: 100 mls Insulin Glargine 10 units/ (Miscellaneous Medication) 0.1 mls @ 0 mls/hr SC QAM [facility] Last Admin: 04/20/18 08:15 Dose: 0.1 mls Levofloxacin 750 mg/ Device 150 mls @ 100 mls/hr IVPB Q2D [facility] Last Admin: 04/19/18 20:25 Dose: 150 mls Sodium Chloride (1/2 Normal Saline) 1,000 mls @ 75 mls/hr IV .[id number] [facility] Last Admin: 04/20/18 23:03 Dose: 1,000 mls Insulin Human Regular (Humulin R) 0 units SC .BEDTIME SLIDING SC PRN PRN Reason: Bedtime Correctional Scale Last Admin: 04/20/18 00:38 Dose: 3 unit Insulin Human Regular (Humulin R) 0 units SC .MODERATE SLIDING SC PRN PRN Reason: Moderate Correctional Scale Last Admin: 04/20/18 17:48 Dose: 4 units Lamotrigine (Lamictal) 50 mg PER TUBE [facility] Last Admin: 04/20/18 23:03 Dose: 50 mg Lorazepam (Ativan) 2 mg SLOW IVP Q1H PRN PRN Reason: Breakthrough agitation Stop: 05/14/18 19:28 Last Admin: 04/20/18 13:59 Dose: 2 mg Methylprednisolone Sodium Succinate (Solu-Medrol) 20 mg IVP Q6HR [facility] Last Admin: 04/20/18 17:50 Dose: 20 mg Mineral Oil/White Petrolatum (Systane Nighttime Eye Ointment) 0 gm EA EYE PRN PRN PRN Reason: Dry Eyes Miscellaneous Medication (Ventilator Sedation Protocol) 1 each FS ONE [facility] Stop: 05/14/18 19:16 Miscellaneous Medication (Pharmacy To Dose) 1 each IVPB PRN PRN PRN Reason: Pharmacy to dose Miscellaneous Medication (Pharmacy To Dose) 0 each IVPB PRN PRN PRN Reason: VANC Pharmacy to Dose Miscellaneous Medication (Pharmacy To Dose) 1 each IVPB DAILYPRN PRN PRN Reason: LABS Morphine Sulfate (Morphine) 2 mg SLOW IVP Q1H PRN PRN Reason: BREAKTHROUGH PAIN/Agitation Stop: 05/14/18 19:28 Discontinue Previous Narcotic Pain Medications And Benzodiazepines 1 each FS .ONE [facility] Stop: 05/14/18 19:28 Clozaril 100 Mg Tab 4 each PO HS [facility] Last Admin: 04/20/18 23:03 Dose: 4 each Propofol (Diprivan) 1,000 mg IV INF PRN; Protocol PRN Reason: TO ACHIEVE GOAL RASS Stop: 05/14/18 19:28 Propofol (Diprivan Bolus) 20 mg IV Q5MIN PRN PRN Reason: BREAKTHROUGH AGITATION Stop: 05/14/18 19:28 Sodium Bicarbonate (Bicarbonate, Sodium) 650 mg PER TUBE .PER PROTOCOL PRN PRN Reason: ENTERAL TUBE OCCLUSION Sodium Chloride (Flush - Normal Saline) 10 ml IVF PRN PRN PRN Reason: Saline Flush Sodium Chloride (Flush - Normal Saline) 10 ml IVF Q12HR [facility] Last Admin: 04/20/18 08:15 Dose: 10 ml
[2018-04-21] MEDS: Piperacillin/Tazobactam 3.375 GM in Sodium Chloride 0.9% 100 ML IVPB SCH ×5 (01:27→21:07)
[2018-04-21] MEDS: Insulin Regular 300 UNITS/3 ML VIAL SC PRN ×3 (06:01→16:05)
[2018-04-21] MEDS: Budesonide 0.5 MG/2 ML NEB INH SCH ×2 (06:21→19:14)
[2018-04-21] MEDS: fentaNYL Citrate/PF 2,000 MCG in Sodium Chloride 0.9% 60 ML IV SCH (06:34)
[2018-04-21] MEDS: lamoTRIgine 25 MG TAB PER TUBE SCH ×2 (08:40→21:06)
[2018-04-21] MEDS: Insulin Glargine 10 UNITS in Pre-Filled Syringe 1 EACH SC SCH (08:40)
[2018-04-21] MEDS: Famotidine/PF 20 mg/2ml Vial SLOW IVP SCH ×2 (08:40→20:58)
[2018-04-21 09:06] LABS: #Eosinphils 0.1 thou/uL (0.0-0.7); #Lymphocytes 0.5 thou/uL (1.20-3.40); #Monocytes 0.3 thou/uL (0.11-0.59); #Neutrophils 16.6 thou/uL (1.40-6.50); %Eosinophils 0.4 % (0.0-10.0); %Lymphocytes 2.7 % (21.0-51.0); %Neutrophils 94.9 % (42.0-75.0); Hemoglobin 9.8 g/dL (12.0-16.0); Mean Corpuscular HGB CONC 30.6 g/dL (32.0-36.0); Mean Corpuscular Hemoglobin 29.6 pg (27.0-31.0); Mean Corpuscular Volume 96.6 fL (78.0-98.0); Mean Platelet Volume 6.1 fL (7.4-10.4); Platelet Count 441 thou/uL (130-400); RBC Distribution Width 15.2 % (11.5-14.5); Red Blood Cell (RBC) Count 3.29 mill/uL (4.20-5.40); White Blood Cell (WBC) Count 17.5 thou/uL (4.8-10.8)
[2018-04-21 09:23] LABS: Anion Gap 15 mmol/L (10-20); BUN (Urea Nitrogen) 59 mg/dL (9.8-20.1); Calc. Creatinine Clearance 61 mL/min (70-130); Calcium 8.7 mg/dL (7.8-10.44); Carbon Dioxide 26 mmol/L (22-29); Chloride 109 mmol/L (98-107); Estimated GFR-MDRD 29; Glucose 246 mg/dL (70-105); Potassium 4.7 mmol/L (3.5-5.1); Sodium 145 mmol/L (136-145)
--- NOTE | 2018-04-21 09:55 | PRG ---
DATE OF SERVICE: 04/21/2018 SUBJECTIVE: Morbidly obese, female, remains intubated on the vent, sedated, 100 mcg of fentanyl. OBJECTIVE: VITAL SIGNS: Blood pressure is 164/83, saturations are 99%, respirations are 18, pulse 78, she is afebrile. CHEST: Decreased breath sounds bilaterally. Minimal rhonchi. CARDIAC: Sinus tach. ABDOMEN: Massive. EXTREMITIES: Trace edema. LABORATORY DATA AND DIAGNOSTIC STUDIES: White count is 17,000, H and H of 9.8 and 31, platelet count 441. X-ray shows bilateral infiltrates, a little bit more pronounced at right base. IMPRESSION: 1. Respiratory failure. 2. Pneumonia. 3. Morbid obesity. PLAN: She is on Levaquin, Zosyn, antibiotics, nutrition, PT. If she is not weanable, we will try minimize sedation. One half hour critical time. Job ID: [id number]
[2018-04-21] MEDS: Sodium Chloride 0.45% 1,000 ML IV SCH (10:13)
--- NOTE | 2018-04-21 13:16 | PDOC.PN ---
- Subjective Encounter Start Date: 04/21/18 Encounter Start Time: 10:15 Patient seen and examined for Resp failure. On Vent. No overnight events - Objective MAR Reviewed: Yes Vital Signs & Weight: Vital Signs (12 hours) Temp Pulse Resp BP Pulse Ox 04/21/18 12:00 98.7 F 12 04/21/18 10:49 78 157/83 H 04/21/18 09:51 12 04/21/18 07:58 12 04/21/18 07:35 12 98 04/21/18 07:00 98.6 F 04/21/18 06:27 76 153/83 H 04/21/18 05:00 97.5 F L 04/21/18 02:24 78 04/21/18 02:23 77 12 100 04/21/18 02:00 12 Weight Admit Weight 245 lb Weight 253 lb 1.451 oz Most Recent Monitor Data Heart Rate from ECG 83 NIBP 138/74 NIBP BP-Mean 95 Respiration from ECG 15 SpO2 99 I&O: 04/20/18 04/21/18 04/22/18 06:59 06:59 06:59 Intake Total 2270 3831.5 110 Output Total 2470 2180 405 Balance -200 1651.5 -295 Result Diagrams: 04/21/18 08:55 04/21/18 08:55 Additional Labs: Accuchecks 04/21/18 04/21/18 04/20/18 10:11 05:34 21:46 POC Glucose 242 H 227 H 224 H 04/20/18 17:48 POC Glucose 222 H EKG Reviewed by me: Yes (Tele SR) Phys Exam - Physical Examination Constitutional: NAD on Vent Respiratory: no wheezing Rales/rhonchi at bases R>L Cardiovascular: RRR, no rub Gastrointestinal: soft, positive bowel sounds Dx/Plan - Plan DVT proph w/SCDs 1. Acute hypoxic and hypercapnic respiratory failure secondary to pneumonia,? [facility] 2. Toxic metabolic encephalopathy, multifactorial. 3. Sepsis with acute organ dysfunction secondary to pneumonia?Aspiration with parapneumonic effusion s/p chest tube placement 04/19 4. Anemia of unclear etiology. s/p 1 unit PRBC 5. COPD exacerbation - on IV Steroids 6. GILMER on CKD 2. 7. Chronic pain syndrome. 8. Diabetes mellitus type 2. 9. Hyperlipidemia. 10. Anxiety and schizophrenia. 11. Hypertension. 12. History of breast cancer. 13. History of seizure disorder. 14. Obstructive sleep apnea, on BiPAP at home per previous record. PLAN: Change Lantus to 10 units BID Cont sliding scale Cont current Atbx with Nebs/Steroids AM labs Cont other meds as below Lovenox on hold due to low Hemoglobin requiring transfusion. Review of Systems - Review of Systems Other: Cannot obtain due to current mentation. - Medications/Allergies Allergies/Adverse Reactions: Allergies Allergy/AdvReac Type Severity Reaction Status Date / Time codeine Allergy Verified 04/14/18 23:04 duloxetine [From Cymbalta] Allergy Verified 04/14/18 23:04 gabapentin Allergy Verified 04/14/18 23:04 pregabalin [From Lyrica] Allergy Verified 04/14/18 23:04 Medications: Current Medications Acetaminophen (Tylenol Elixir) 650 mg PO Q6H PRN PRN Reason: Fever > 101 or Mild Pain Acetaminophen (Tylenol) 650 mg [place] Q6H PRN PRN Reason: Fever > 101 or Mild Pain Last Admin: 04/15/18 03:15 Dose: 650 mg Albuterol/Ipratropium (Duoneb) 3 ml NEB [id number] ODETTE Last Admin: 04/21/18 10:48 Dose: 3 ml Albuterol/Ipratropium (Duoneb) 3 ml NEB Q2H PRN PRN Reason: SOB &/or Wheezing Lipase/Protease/Amylase (Sarah Graf [id number]) 1 cap FS .PER PROTOCOL PRN PRN Reason: TUBE OCCLUSION PROTOCOL Bisacodyl (Dulcolax) 10 mg [place] DAILYPRN PRN PRN Reason: Constipation Budesonide (Pulmicort Neb Solution) 0.5 mg INH BID-RT ODETTE Last Admin: 04/21/18 06:21 Dose: 0.5 mg Dextrose/Water (Dextrose 50%) 25 gm SLOW IVP PRN PRN PRN Reason: Hypoglycemia Famotidine (Pepcid) 20 mg SLOW IVP Q12HR ODETTE Last Admin: 04/21/18 08:40 Dose: 20 mg Glucagon (Glucagon) 1 mg IM PRN PRN PRN Reason: Hypoglycemia Piperacillin Sod/Tazobactam (Sod 3.375 gm/ Sodium Chloride) 100 mls @ 200 mls/ hr IVPB Q6HR [facility] Last Admin: 04/21/18 12:31 Dose: 100 mls Dextrose/Water (D5w) 1,000 mls @ 0 mls/hr IV .Q0M PRN PRN Reason: Hypoglycemia Fentanyl Citrate (Fentanyl Bolus) 250 mls @ 0 mls/hr IVPB PRN PRN PRN Reason: Breakthrough pain/agitation Stop: 05/14/18 19:28 Fentanyl Citrate 2,000 mcg/ (Sodium Chloride) 100 mls @ 0 mls/hr IV INF ODETTE; Protocol Stop: 05/14/18 19:30 Last Admin: 04/21/18 06:34 Dose: 100 mls Insulin Glargine 10 units/ (Miscellaneous Medication) 0.1 mls @ 0 mls/hr SC QAM [facility] Last Admin: 04/21/18 08:40 Dose: 0.1 mls Levofloxacin 750 mg/ Device 150 mls @ 100 mls/hr IVPB Q2D [facility] Last Admin: 04/19/18 20:25 Dose: 150 mls Sodium Chloride (1/2 Normal Saline) 1,000 mls @ 75 mls/hr IV .[id number] [facility] Last Admin: 04/21/18 10:13 Dose: Not Given Insulin Glargine 10 units/ (Miscellaneous Medication) 0.1 mls @ 0 mls/hr SC HS [facility] Insulin Human Regular (Humulin R) 0 units SC .BEDTIME SLIDING SC PRN PRN Reason: Bedtime Correctional Scale Last Admin: 04/20/18 00:38 Dose: 3 unit Insulin Human Regular (Humulin R) 0 units SC .MODERATE SLIDING SC PRN PRN Reason: Moderate Correctional Scale Last Admin: 04/21/18 10:12 Dose: 4 units Lamotrigine (Lamictal) 50 mg PER TUBE [facility] Last Admin: 04/21/18 08:40 Dose: 50 mg Lorazepam (Ativan) 2 mg SLOW IVP Q1H PRN PRN Reason: Breakthrough agitation Stop: 05/14/18 19:28 Last Admin: 04/20/18 13:59 Dose: 2 mg Methylprednisolone Sodium Succinate (Solu-Medrol) 20 mg IVP Q6HR [facility] Last Admin: 04/21/18 12:31 Dose: 20 mg Mineral Oil/White Petrolatum (Systane Nighttime Eye Ointment) 0 gm EA EYE PRN PRN PRN Reason: Dry Eyes Miscellaneous Medication (Ventilator Sedation Protocol) 1 each FS ONE ODETTE Stop: 05/14/18 19:16 Miscellaneous Medication (Pharmacy To Dose) 1 each IVPB PRN PRN PRN Reason: Pharmacy to dose Miscellaneous Medication (Pharmacy To Dose) 0 each IVPB PRN PRN PRN Reason: [facility] Pharmacy to Dose Miscellaneous Medication (Pharmacy To Dose) 1 each IVPB DAILYPRN PRN PRN Reason: LABS Morphine Sulfate (Morphine) 2 mg SLOW IVP Q1H PRN PRN Reason: BREAKTHROUGH PAIN/Agitation Stop: 05/14/18 19:28 Discontinue Previous Narcotic Pain Medications And Benzodiazepines 1 each FS .ONE ODETTE Stop: 05/14/18 19:28 Clozaril 100 Mg Tab 4 each PO HS [facility] Last Admin: 04/20/18 23:03 Dose: 4 each Propofol (Diprivan) 1,000 mg IV INF PRN; Protocol PRN Reason: TO ACHIEVE GOAL RASS Stop: 05/14/18 19:28 Propofol (Diprivan Bolus) 20 mg IV Q5MIN PRN PRN Reason: BREAKTHROUGH AGITATION Stop: 05/14/18 19:28 Sodium Bicarbonate (Bicarbonate, Sodium) 650 mg PER TUBE .PER PROTOCOL PRN PRN Reason: ENTERAL TUBE OCCLUSION Sodium Chloride (Flush - Normal Saline) 10 ml IVF PRN PRN PRN Reason: Saline Flush Sodium Chloride (Flush - Normal Saline) 10 ml IVF Q12HR ODETTE Last Admin: 04/21/18 08:48 Dose: Not Given
[2018-04-21] MEDS ORDERED: Insulin Glargine 10 UNITS in Pre-Filled Syringe 1 EACH SC SCH (21:00)
[2018-04-21] MEDS ORDERED: Budesonide 0.5 MG/2 ML NEB ONE (21:23)
[2018-04-21] MEDS: CLOZARIL 100 MG PO SCH (21:26)
[2018-04-22] MEDS: Piperacillin/Tazobactam 3.375 GM in Sodium Chloride 0.9% 100 ML IVPB SCH ×4 (00:39→18:00)
[2018-04-22] MEDS: Sodium Chloride 0.45% 1,000 ML IV SCH ×2 (00:57→21:18)
[2018-04-22] MEDS: Insulin Regular 300 UNITS/3 ML VIAL SC PRN ×3 (04:12→20:18)
[2018-04-22 04:48] LABS: Band 8 % (5-11); Lymphocytes 5 % (21-51); MDiff Complete? YES; Mean Corpuscular HGB CONC 31.8 g/dL (32.0-36.0); Mean Corpuscular Hemoglobin 30.4 pg (27.0-31.0); Mean Corpuscular Volume 95.6 fL (78.0-98.0); Mean Platelet Volume 7.3 fL (7.4-10.4); Monocytes 4 % (0-10); Neutrophil 83 % (42-75); PLT Morphology Comment Appears Adequate; Platelet Count 378 thou/uL (130-400); RBC Distribution Width 15.9 % (11.5-14.5); Red Blood Cell (RBC) Count 2.96 mill/uL (4.20-5.40); White Blood Cell (WBC) Count 17.9 thou/uL (4.8-10.8)
[2018-04-22 05:14] LABS: Calcium 8.6 mg/dL (7.8-10.44); Chloride 109 mmol/L (98-107); Potassium 4.8 mmol/L (3.5-5.1); Sodium 144 mmol/L (136-145)
[2018-04-22 05:15] LABS: Glucose 234 mg/dL (70-105)
[2018-04-22 05:16] LABS: Anion Gap 14 mmol/L (10-20); Carbon Dioxide 26 mmol/L (22-29)
[2018-04-22 05:18] LABS: Calc. Creatinine Clearance 62 mL/min (70-130); Estimated GFR-MDRD 29
[2018-04-22 05:19] LABS: BUN (Urea Nitrogen) 61 mg/dL (9.8-20.1)
[2018-04-22] MEDS: Budesonide 0.5 MG/2 ML NEB INH SCH ×2 (07:16→18:43)
[2018-04-22] MEDS: lamoTRIgine 25 MG TAB PER TUBE SCH ×2 (07:43→20:33)
[2018-04-22] MEDS: Saccharomyces boulardii 250 MG CAP PER TUBE SCH (09:18)
[2018-04-22] MEDS: Famotidine/PF 20 mg/2ml Vial SLOW IVP SCH ×2 (09:18→20:33)
[2018-04-22] MEDS: Insulin Glargine 15 UNITS in Pre-Filled Syringe 1 EACH SC SCH ×2 (09:19→20:17)
--- NOTE | 2018-04-22 10:32 | PRG ---
DATE OF SERVICE: 04/22/2018 SUBJECTIVE: This morning, she is on 50 of Fentanyl, appears to be sedated. Nurses tell me yesterday that she was slightly more responsive when the sedation was withheld, but still is empathic. X-ray shows right-sided infiltrate, right-sided chest tube, and left-sided haziness. OBJECTIVE: VITAL SIGNS: Pulse 79, blood pressure 151/87, saturations 100%, respiratory rate 13. CHEST: Diffuse rhonchi. CARDIAC: Normal S1 and S2. No gallops. ABDOMEN: No masses. EXTREMITIES: No edema. LABORATORY DATA: White count is 17,000, hemoglobin and hematocrit of 9 and 28, platelet count normal. Creatinine 1.7. BUN is 61. IMPRESSION: 1. Bilateral bronchopneumonia. 2. Increasing azotemia. 3. Morbid obesity. PLAN: At this stage, it is unclear whether she is weanable. We will hold sedation. Continue nutrition and PT. Continue broad-spectrum antibiotics, so far cultures are unrevealing. One-half hour critical time. Job ID: [id number]
--- NOTE | 2018-04-22 12:01 | RAD ---
PORTABLE UPRIGHT FRONTAL CHEST: Date: 04/22/18 COMPARISON: 04/20/18. HISTORY: Ventilated patient, respiratory distress. FINDINGS: Stable right-sided chest tube. Stable endotracheal tube and nasogastric tube. Patchy nonspecific incr eased density is noted in the medial left lung base, stable. There is dense pleural and parenchymal o pacity involving the inferior half of the right hemithorax, not significantly changed. IMPRESSION: Stable appearance of the chest as detailed above. POS: CHERELLE
--- NOTE | 2018-04-22 21:15 | PDOC.PN ---
- Subjective Encounter Start Date: 04/22/18 Encounter Start Time: 08:00 -: non-verbal Patient seen and examined for Resp failure/Pneumonia. On Vent. Diarrhea per RN. No overnight events - Objective MAR Reviewed: Yes Vital Signs & Weight: Vital Signs (12 hours) Temp Pulse Pulse Pulse Resp BP BP 04/22/18 20:00 14 04/22/18 18:44 84 04/22/18 18:43 04/22/18 18:14 04/22/18 18:00 14 04/22/18 16:00 14 04/22/18 14:12 83 139/79 04/22/18 14:00 14 04/22/18 13:00 98.1 F 04/22/18 12:00 14 04/22/18 11:30 87 86 148/78 H 04/22/18 10:37 80 168/88 H 04/22/18 10:00 14 BP Pulse Ox Pulse Ox Pulse Ox 04/22/18 20:00 04/22/18 18:44 04/22/18 18:43 99 04/22/18 18:14 99 04/22/18 18:00 04/22/18 16:00 04/22/18 14:12 04/22/18 14:00 04/22/18 13:00 04/22/18 12:00 04/22/18 11:30 149/85 H 98 99 04/22/18 10:37 04/22/18 10:00 Weight Admit Weight 245 lb Weight 253 lb 15.56 oz Most Recent Monitor Data Heart Rate from ECG 84 NIBP 151/85 NIBP BP-Mean 107 Respiration from ECG 14 SpO2 99 I&O: 04/21/18 04/22/18 04/23/18 06:59 06:59 06:59 Intake Total 3831.5 3410 827 Output Total 2180 2550 1450 Balance 1651.5 860 -623 Result Diagrams: 04/23/18 04:30 04/23/18 04:30 Additional Labs: Accuchecks 04/22/18 04/22/18 04/22/18 16:00 09:59 04:12 POC Glucose 230 H 245 H 212 H Radiology Reviewed by me: Yes (CXR - no new changes) EKG Reviewed by me: Yes (Tele SR) Phys Exam - Physical Examination Constitutional: NAD (on Mech Vent) Respiratory: no wheezing Rales/rhonchi on Rt Cardiovascular: RRR Gastrointestinal: soft, non-tender, positive bowel sounds Musculoskeletal: no edema Dx/Plan - Plan DVT proph w/SCDs 1. Acute hypoxic and hypercapnic respiratory failure secondary to pneumonia,? Aspiration pneumonia - on Mech Vent (s/p Bronch) 2. Toxic metabolic encephalopathy, multifactorial. 3. Sepsis with acute organ dysfunction secondary to pneumonia?Aspiration with parapneumonic effusion s/p chest tube placement 04/19 4. Anemia of unclear etiology. s/p 1 unit PRBC 5. COPD exacerbation - on IV Steroids 6. GILMER on CKD 2. 7. Chronic pain syndrome. 8. Diabetes mellitus type 2. 9. Hyperlipidemia. 10. Anxiety and schizophrenia. 11. Hypertension. 12. History of breast cancer. 13. History of seizure disorder. 14. Obstructive sleep apnea, on BiPAP at home per previous record. 15. Diarrhea - r/o C diff PLAN: Increase Lantus to 15 units BID Cont Atbx/Nebs/Steroids Cont other meds as below Lovenox on hold due to low Hemoglobin requiring transfusion. AM labs Review of Systems - Review of Systems Other: Cannot obtain due to sedation. - Medications/Allergies Allergies/Adverse Reactions: Allergies Allergy/AdvReac Type Severity Reaction Status Date / Time codeine Allergy Verified 04/14/18 23:04 duloxetine [From Cymbalta] Allergy Verified 04/14/18 23:04 gabapentin Allergy Verified 04/14/18 23:04 pregabalin [From Lyrica] Allergy Verified 04/14/18 23:04 Medications: Current Medications Acetaminophen (Tylenol Elixir) 650 mg PO Q6H PRN PRN Reason: Fever > 101 or Mild Pain Acetaminophen (Tylenol) 650 mg MS Q6H PRN PRN Reason: Fever > 101 or Mild Pain Last Admin: 04/15/18 03:15 Dose: 650 mg Albuterol/Ipratropium (Duoneb) 3 ml NEB [id number] ODETTE Last Admin: 04/22/18 18:43 Dose: 3 ml Albuterol/Ipratropium (Duoneb) 3 ml NEB Q2H PRN PRN Reason: SOB &/or Wheezing Lipase/Protease/Amylase (Sarah Graf [id number]) 1 cap FS .PER PROTOCOL PRN PRN Reason: TUBE OCCLUSION PROTOCOL Bisacodyl (Dulcolax) 10 mg [place] DAILYPRN PRN PRN Reason: Constipation Budesonide (Pulmicort Neb Solution) 0.5 mg INH BID-RT [facility] Last Admin: 04/22/18 18:43 Dose: 0.5 mg Dextrose/Water (Dextrose 50%) 25 gm SLOW IVP PRN PRN PRN Reason: Hypoglycemia Famotidine (Pepcid) 20 mg SLOW IVP Q12HR [facility] Last Admin: 04/22/18 20:33 Dose: 20 mg Glucagon (Glucagon) 1 mg IM PRN PRN PRN Reason: Hypoglycemia Piperacillin Sod/Tazobactam (Sod 3.375 gm/ Sodium Chloride) 100 mls @ 200 mls/ hr IVPB Q6HR [facility] Last Admin: 04/22/18 18:00 Dose: 100 mls Dextrose/Water (D5w) 1,000 mls @ 0 mls/hr IV .Q0M PRN PRN Reason: Hypoglycemia Fentanyl Citrate (Fentanyl Bolus) 250 mls @ 0 mls/hr IVPB PRN PRN PRN Reason: Breakthrough pain/agitation Stop: 05/14/18 19:28 Fentanyl Citrate 2,000 mcg/ (Sodium Chloride) 100 mls @ 0 mls/hr IV INF ODETTE; Protocol Stop: 05/14/18 19:30 Last Admin: 04/21/18 06:34 Dose: 100 mls Sodium Chloride (1/2 Normal Saline) 1,000 mls @ 50 mls/hr IV .Q20H [facility] Last Admin: 04/22/18 00:57 Dose: 1,000 mls Levofloxacin 750 mg/ Device 150 mls @ 100 mls/hr IVPB Q2D@2100 [facility] Last Admin: 04/21/18 21:26 Dose: 150 mls Insulin Glargine 15 units/ (Miscellaneous Medication) 0.15 mls @ 0 mls/hr SC BID [facility] Last Admin: 04/22/18 20:17 Dose: 0.15 mls Insulin Human Regular (Humulin R) 0 units SC .BEDTIME SLIDING SC PRN PRN Reason: Bedtime Correctional Scale Last Admin: 04/20/18 00:38 Dose: 3 unit Insulin Human Regular (Humulin R) 0 units SC .AGGRESSIVE SLIDING PRN PRN Reason: Aggressive Sliding Scale Last Admin: 04/22/18 20:18 Dose: 9 unit Lamotrigine (Lamictal) 50 mg PER TUBE 08,20 [facility] Last Admin: 04/22/18 20:33 Dose: 50 mg Lorazepam (Ativan) 2 mg SLOW IVP Q1H PRN PRN Reason: Breakthrough agitation Stop: 05/14/18 19:28 Last Admin: 04/20/18 13:59 Dose: 2 mg Methylprednisolone Sodium Succinate (Solu-Medrol) 20 mg IVP Q6HR [facility] Last Admin: 04/22/18 18:01 Dose: 20 mg Mineral Oil/White Petrolatum (Systane Nighttime Eye Ointment) 0 gm EA EYE PRN PRN PRN Reason: Dry Eyes Miscellaneous Medication (Ventilator Sedation Protocol) 1 each FS ONE [facility] Stop: 05/14/18 19:16 Miscellaneous Medication (Pharmacy To Dose) 1 each IVPB PRN PRN PRN Reason: Pharmacy to dose Miscellaneous Medication (Pharmacy To Dose) 0 each IVPB PRN PRN PRN Reason: [facility] Pharmacy to Dose Miscellaneous Medication (Pharmacy To Dose) 1 each IVPB DAILYPRN PRN PRN Reason: LABS Morphine Sulfate (Morphine) 2 mg SLOW IVP Q1H PRN PRN Reason: BREAKTHROUGH PAIN/Agitation Stop: 05/14/18 19:28 Discontinue Previous Narcotic Pain Medications And Benzodiazepines 1 each FS .ONE [facility] Stop: 05/14/18 19:28 Clozaril 100 Mg Tab 4 each PO HS [facility] Last Admin: 04/21/18 21:26 Dose: 4 each Propofol (Diprivan) 1,000 mg IV INF PRN; Protocol PRN Reason: TO ACHIEVE GOAL RASS Stop: 05/14/18 19:28 Propofol (Diprivan Bolus) 20 mg IV Q5MIN PRN PRN Reason: BREAKTHROUGH AGITATION Stop: 05/14/18 19:28 Saccharomyces Boulardii (Florastor) 250 mg PER TUBE DAILY [facility] Last Admin: 04/22/18 09:18 Dose: 250 mg Sodium Bicarbonate (Bicarbonate, Sodium) 650 mg PER TUBE .PER PROTOCOL PRN PRN Reason: ENTERAL TUBE OCCLUSION Sodium Chloride (Flush - Normal Saline) 10 ml IVF PRN PRN PRN Reason: Saline Flush Sodium Chloride (Flush - Normal Saline) 10 ml IVF Q12HR [facility] Last Admin: 04/22/18 20:34 Dose: 10 ml
[2018-04-22] MEDS: CLOZARIL 100 MG PO SCH (21:18)
[2018-04-23] MEDS: Piperacillin/Tazobactam 3.375 GM in Sodium Chloride 0.9% 100 ML IVPB SCH ×2 (00:58→05:52)
[2018-04-23] MEDS: Insulin Regular 300 UNITS/3 ML VIAL SC PRN ×3 (04:29→17:13)
[2018-04-23 04:54] LABS: Anion Gap 14 mmol/L (10-20); BUN (Urea Nitrogen) 60 mg/dL (9.8-20.1); Calc. Creatinine Clearance 65 mL/min (70-130); Calcium 8.5 mg/dL (7.8-10.44); Carbon Dioxide 26 mmol/L (22-29); Chloride 108 mmol/L (98-107); Estimated GFR-MDRD 31; Glucose 268 mg/dL (70-105); Potassium 4.6 mmol/L (3.5-5.1); Sodium 143 mmol/L (136-145)
[2018-04-23 05:36] LABS: Band 1 % (5-11); Hemoglobin 9.6 g/dL (12.0-16.0); Lymphocytes 2 % (21-51); MDiff Complete? YES; Mean Corpuscular HGB CONC 32.2 g/dL (32.0-36.0); Mean Corpuscular Hemoglobin 30.7 pg (27.0-31.0); Mean Corpuscular Volume 95.3 fL (78.0-98.0); Mean Platelet Volume 6.2 fL (7.4-10.4); Monocytes 2 % (0-10); Neutrophil 95 % (42-75); Platelet Count 415 thou/uL (130-400); RBC Distribution Width 15.5 % (11.5-14.5); Red Blood Cell (RBC) Count 3.12 mill/uL (4.20-5.40); White Blood Cell (WBC) Count 17.6 thou/uL (4.8-10.8)
[2018-04-23 06:43] LABS: Actual Bicarbonate (HCO3a) 27.8 mEq/L (22-28); CO2 Tension 43.3 mmHg (35.0-45.0); Calcium, Ionized 1.18 mmol/L (1.12-1.30); Carboxyhemoglobin (COHb) 0.7 gm% (0.0-3.0); Hemoglobin (Hb) 10.1 g/dL (12.0-16.0); O2 Tension (PaO2) 73.7 mmHg (> 80.0); Potassium - ABG Lab 4.45 mmol/L (3.70-5.30); pH, Arterial 7.43 (7.35-7.45)
[2018-04-23 06:44] LABS: ALV-art Gradient 86.075 (0-20); Puncture Site RRA
[2018-04-23] MEDS: Budesonide 0.5 MG/2 ML NEB INH SCH ×2 (07:31→18:27)
[2018-04-23] MEDS: lamoTRIgine 25 MG TAB PER TUBE SCH ×2 (07:52→20:25)
[2018-04-23] MEDS: Saccharomyces boulardii 250 MG CAP PER TUBE SCH (08:55)
[2018-04-23] MEDS: Famotidine/PF 20 mg/2ml Vial SLOW IVP SCH ×2 (08:55→20:25)
[2018-04-23] MEDS: Insulin Glargine 15 UNITS in Pre-Filled Syringe 1 EACH SC SCH ×2 (09:02→20:26)
--- NOTE | 2018-04-23 09:23 | RAD ---
PORTABLE CHEST 1 VIEW: Date: 04/23/18 Time: 0520 hours HISTORY: Respiratory failure. FINDINGS/IMPRESSION: No significant interval change is seen since the previous day's exam. POS: CHERELLE
[2018-04-23] MEDS ORDERED: Furosemide 40 MG/4 ML VIAL ONE (10:24)
[2018-04-23] MEDS ORDERED: Furosemide 40 MG/4 ML VIAL SLOW IVP SCH (10:45)
--- NOTE | 2018-04-23 11:10 | PRG ---
DATE OF SERVICE: 04/23/2018 SERVICE: Pulmonary Medicine. INTERVAL HISTORY: The patient is doing fine from respiratory standpoint. She continues to have copious secretions. There has been no interval change to her condition. She remains fairly weak. She has been put in place on a sedation holiday. She has been off sedation for over 3 hours. There have been no other overnight events. PHYSICAL EXAMINATION: VITAL SIGNS: Afebrile, pulse 80, blood pressure 163/79, respirations 12, saturation 100% on 23% FiO2, and a PEEP of 5. GENERAL: The patient is intubated. She is under the influence of some sedation , which is currently held. HEENT: Normocephalic and atraumatic. Sclerae are white. Conjunctivae are pink. Oral mucosa is moist without lesions. LUNGS: Decent air entry. Rhonchi are present. No prolonged expiratory phase or wheezing is appreciated. HEART: Normal rate and regular. ABDOMEN: Soft, nontender, and nondistended. Bowel sounds are positive. MUSCULOSKELETAL: No cyanosis or clubbing. There is diffuse pitting in the upper, lower, and sacral regions. GENITOURINARY: Mead catheter in place. NEUROLOGIC: Grossly nonfocal. LABORATORY DATA: WBC 17.6, hemoglobin 9.6, and platelets 415,000. Neutrophils are 1% band on top of 95% neutrophils. A pH 7.43, pCO2 of 43, and pO2 of 76. Creatinine 1.68, which is gently downtrending. BUN 60, sodium 143, and chloride 108. Basic metabolic profile is otherwise unremarkable. BNP 277. Vancomycin trough 40.6, which is now down to 21.7. Urine drug screen is otherwise unremarkable. Blood cultures x2, and respiratory culture negative. IMAGING DATA: Chest x-ray demonstrates endotracheal tube remains in good position. Dense right lower lobe infiltrate is present. There is likely a bilateral pleural effusion. Right-sided thoracostomy tube is in good position. ASSESSMENT: 1. Acute hypoxic respiratory failure. 2. Community-acquired pneumonia, severe. 3. Acute kidney injury, likely secondary to infection, and vancomycin toxicity. 4. Morbid obesity. 5. Deconditioning. DISCUSSION AND PLAN: We will put the patient on pressure support ventilation. As long as she is on sedation holiday, we will continue to ventilate her with this mode. When she requires sedation once again, we will put her back on mechanical ventilation. Pulmonary Critical Care will continue to follow along in this location while we continue supportive care. She is volume up. I will interrupt her IV fluids and provide her with a dose of Lasix. Tube feeds, antibiotics, and steroids will otherwise be continued. Pulmonary Critical Care will continue to follow along. Critical care time: 30 minutes. Job ID: [id number] MTDD
[2018-04-23] MEDS: CLOZARIL 100 MG PO SCH (20:25)
--- NOTE | 2018-04-23 21:42 | PDOC.PN ---
- Subjective Encounter Start Date: 04/23/18 Encounter Start Time: 10:30 -: non-verbal Patient seen and examined for Resp failure. Pt remain on Vent. No overnight events - Objective MAR Reviewed: Yes Vital Signs & Weight: Vital Signs (12 hours) Temp Pulse Resp BP Pulse Ox 04/23/18 20:00 98.2 F 20 04/23/18 18:27 84 97 04/23/18 18:00 16 04/23/18 16:00 24 H 04/23/18 15:00 98.4 F 04/23/18 14:41 84 141/86 H 04/23/18 14:00 19 04/23/18 13:04 86 04/23/18 12:00 17 04/23/18 11:00 99.2 F 04/23/18 10:26 82 144/84 H 04/23/18 10:00 18 Weight Admit Weight 245 lb Weight 259 lb 11.272 oz Most Recent Monitor Data Heart Rate from ECG 86 NIBP 126/67 NIBP BP-Mean 86 Respiration from ECG 0 SpO2 96 I&O: 04/22/18 04/23/18 04/24/18 06:59 06:59 06:59 Intake Total 3410 2324 1177 Output Total 2550 3365 3635 Balance 641 -8640 -2893 Result Diagrams: 04/23/18 04:30 04/23/18 04:30 Additional Labs: Accuchecks 04/23/18 04/23/18 04/23/18 20:29 16:38 07:40 POC Glucose 141 H 192 H 245 H 04/23/18 04:29 POC Glucose 253 H EKG Reviewed by me: Yes (Tele SR) Phys Exam - Physical Examination Constitutional: NAD Respiratory: no wheezing Rales and rhonchi at Rt bases Cardiovascular: RRR Gastrointestinal: soft, non-tender, positive bowel sounds Musculoskeletal: no edema Neurological: moves all 4 limbs Dx/Plan - Plan DVT proph w/SCDs 1. Acute hypoxic and hypercapnic respiratory failure secondary to pneumonia,? [facility] 2. Toxic metabolic encephalopathy, multifactorial. 3. Sepsis with acute organ dysfunction secondary to pneumonia?Aspiration with parapneumonic effusion s/p chest tube placement 04/19 4. Anemia of unclear etiology. s/p 1 unit PRBC 5. COPD exacerbation - on IV Steroids 6. GILMER on CKD 2. 7. Chronic pain syndrome. 8. Diabetes mellitus type 2. 9. Hyperlipidemia. 10. Anxiety and schizophrenia. 11. Hypertension. 12. History of breast cancer. 13. History of seizure disorder. 14. Obstructive sleep apnea, on BiPAP at home per previous record. 15. Diarrhea - r/o C diff PLAN: Cont Lantus 15 units BID Cont Atbx/Nebs Cont Steroids - dose reduced Cont other meds as below Lovenox on hold due to Anemia requiring transfusion. AM labs Review of Systems - Review of Systems Other: Cannot obtain due to sedation. - Medications/Allergies Allergies/Adverse Reactions: Allergies Allergy/AdvReac Type Severity Reaction Status Date / Time codeine Allergy Verified 04/14/18 23:04 duloxetine [From Cymbalta] Allergy Verified 04/14/18 23:04 gabapentin Allergy Verified 04/14/18 23:04 pregabalin [From Lyrica] Allergy Verified 04/14/18 23:04 Medications: Current Medications Acetaminophen (Tylenol Elixir) 650 mg PO Q6H PRN PRN Reason: Fever > 101 or Mild Pain Acetaminophen (Tylenol) 650 mg [place] Q6H PRN PRN Reason: Fever > 101 or Mild Pain Last Admin: 04/15/18 03:15 Dose: 650 mg Albuterol/Ipratropium (Duoneb) 3 ml NEB [id number] ODETTE Last Admin: 04/23/18 18:27 Dose: 3 ml Albuterol/Ipratropium (Duoneb) 3 ml NEB Q2H PRN PRN Reason: SOB &/or Wheezing Lipase/Protease/Amylase (Sarah Graf [id number]) 1 cap FS .PER PROTOCOL PRN PRN Reason: TUBE OCCLUSION PROTOCOL Bisacodyl (Dulcolax) 10 mg [place] DAILYPRN PRN PRN Reason: Constipation Budesonide (Pulmicort Neb Solution) 0.5 mg INH BID-RT [facility] Last Admin: 04/23/18 18:27 Dose: 0.5 mg Dextrose/Water (Dextrose 50%) 25 gm SLOW IVP PRN PRN PRN Reason: Hypoglycemia Famotidine (Pepcid) 20 mg SLOW IVP Q12HR [facility] Last Admin: 04/23/18 20:25 Dose: 20 mg Furosemide (Lasix) 40 mg SLOW IVP 0600 ODETTE Glucagon (Glucagon) 1 mg IM PRN PRN PRN Reason: Hypoglycemia Dextrose/Water (D5w) 1,000 mls @ 0 mls/hr IV .Q0M PRN PRN Reason: Hypoglycemia Fentanyl Citrate (Fentanyl Bolus) 250 mls @ 0 mls/hr IVPB PRN PRN PRN Reason: Breakthrough pain/agitation Stop: 05/14/18 19:28 Fentanyl Citrate 2,000 mcg/ (Sodium Chloride) 100 mls @ 0 mls/hr IV INF [facility]; Protocol Stop: 05/14/18 19:30 Last Admin: 04/21/18 06:34 Dose: 100 mls Levofloxacin 750 mg/ Device 150 mls @ 100 mls/hr IVPB Q2D@2100 [facility] Last Admin: 04/23/18 20:25 Dose: 150 mls Insulin Glargine 15 units/ (Miscellaneous Medication) 0.15 mls @ 0 mls/hr SC BID [facility] Last Admin: 04/23/18 20:26 Dose: 0.15 mls Insulin Human Regular (Humulin R) 0 units SC .BEDTIME SLIDING SC PRN PRN Reason: Bedtime Correctional Scale Last Admin: 04/20/18 00:38 Dose: 3 unit Insulin Human Regular (Humulin R) 0 units SC .AGGRESSIVE SLIDING PRN PRN Reason: Aggressive Sliding Scale Last Admin: 04/23/18 17:13 Dose: 3 unit Lamotrigine (Lamictal) 50 mg PER TUBE 20 [facility] Last Admin: 04/23/18 20:25 Dose: 50 mg Methylprednisolone Sodium Succinate (Solu-Medrol) 40 mg IVP DAILY [facility] Mineral Oil/White Petrolatum (Systane Nighttime Eye Ointment) 0 gm EA EYE PRN PRN PRN Reason: Dry Eyes Miscellaneous Medication (Ventilator Sedation Protocol) 1 each FS ONE [facility] Stop: 05/14/18 19:16 Miscellaneous Medication (Pharmacy To Dose) 1 each IVPB PRN PRN PRN Reason: Pharmacy to dose Miscellaneous Medication (Pharmacy To Dose) 0 each IVPB PRN PRN PRN Reason: [facility] Pharmacy to Dose Miscellaneous Medication (Pharmacy To Dose) 1 each IVPB DAILYPRN PRN PRN Reason: LABS Discontinue Previous Narcotic Pain Medications And Benzodiazepines 1 each FS .ONE [facility] Stop: 05/14/18 19:28 Clozaril 100 Mg Tab 4 each PO HS [facility] Last Admin: 04/23/18 20:25 Dose: 4 each Propofol (Diprivan) 1,000 mg IV INF PRN; Protocol PRN Reason: TO ACHIEVE GOAL RASS Stop: 05/14/18 19:28 Propofol (Diprivan Bolus) 20 mg IV Q5MIN PRN PRN Reason: BREAKTHROUGH AGITATION Stop: 05/14/18 19:28 Saccharomyces Boulardii (Florastor) 250 mg PER TUBE DAILY [facility] Last Admin: 04/23/18 08:55 Dose: 250 mg Sodium Bicarbonate (Bicarbonate, Sodium) 650 mg PER TUBE .PER PROTOCOL PRN PRN Reason: ENTERAL TUBE OCCLUSION Sodium Chloride (Flush - Normal Saline) 10 ml IVF PRN PRN PRN Reason: Saline Flush Sodium Chloride (Flush - Normal Saline) 10 ml IVF Q12HR [facility] Last Admin: 04/23/18 20:26 Dose: 10 ml
[2018-04-24] MEDS: Budesonide 0.5 MG/2 ML NEB INH SCH ×2 (06:14→18:15)
[2018-04-24 06:15] LABS: Anion Gap 14 mmol/L (10-20); BUN (Urea Nitrogen) 57 mg/dL (9.8-20.1); Calc. Creatinine Clearance 69 mL/min (70-130); Calcium 8.5 mg/dL (7.8-10.44); Carbon Dioxide 29 mmol/L (22-29); Chloride 105 mmol/L (98-107); Estimated GFR-MDRD 33; Glucose 122 mg/dL (70-105); Potassium 3.8 mmol/L (3.5-5.1); Sodium 144 mmol/L (136-145)
[2018-04-24 06:30] LABS: Band 8 % (5-11); Eosinophils 1 % (0-10); Hemoglobin 9.8 g/dL (12.0-16.0); Lymphocytes 7 % (21-51); MDiff Complete? YES; Mean Corpuscular HGB CONC 31.5 g/dL (32.0-36.0); Mean Platelet Volume 6.3 fL (7.4-10.4); Monocytes 3 % (0-10); Neutrophil 81 % (42-75); Platelet Count 396 thou/uL (130-400); RBC Distribution Width 15.7 % (11.5-14.5); Red Blood Cell (RBC) Count 3.26 mill/uL (4.20-5.40); White Blood Cell (WBC) Count 18.9 thou/uL (4.8-10.8)
[2018-04-24] MEDS: Furosemide 40 MG/4 ML VIAL SLOW IVP SCH (06:31)
[2018-04-24] MEDS: lamoTRIgine 25 MG TAB PER TUBE SCH ×2 (07:27→20:59)
[2018-04-24] MEDS: Insulin Glargine 15 UNITS in Pre-Filled Syringe 1 EACH SC SCH ×2 (08:48→21:34)
[2018-04-24] MEDS: Famotidine/PF 20 mg/2ml Vial SLOW IVP SCH ×2 (08:48→20:52)
[2018-04-24] MEDS: Saccharomyces boulardii 250 MG CAP PER TUBE SCH (08:48)
--- NOTE | 2018-04-24 08:53 | RAD ---
PORTABLE UPRIGHT FRONTAL CHEST RADIOGRAPH; Date: 04/24/18 COMPARISON: 04/23/18. HISTORY: Respiratory failure. FINDINGS: Stable endotracheal tube and nasogastric tube. Stable nonspecific dense pleural and parenchymal opaci ty involves both lung bases, right greater than left. IMPRESSION: Stable appearance of the chest as above. POS: [facility]
[2018-04-24] MEDS: Heparin 5,000 UNITS/ML VIAL SC SCH ×2 (15:16→20:52)
--- NOTE | 2018-04-24 17:03 | PRG ---
DATE OF SERVICE: 04/24/2018 SUBJECTIVE: Miley Quan is doing well. She is awake. She moved all of her extremities. She was cooperative. She passed a leak test. Minute volume is 9 L a minute. She passed spontaneous breathing trial, oximetry was in the mid-to-high 90s, heart rate was in the 90s, respiratory rate was in the teens to 20s, minute volume was never over 10 L a minute during spontaneous breathing trial. PHYSICAL EXAMINATION: LUNGS: Clear with the exception of decreased breath sounds at the right base. HEART: Regular rhythm. ABDOMEN: Soft and nontender. EXTREMITIES: Without asymmetry. LABORATORY DATA: White count 18.9, hemoglobin 9.8, platelets 396. Sodium 144, potassium 3.8, chloride 105, bicarb 29, BUN 57, creatinine 1.6. Intake and outputs negative 1041. IMPRESSION: 1. Dense right lower lobe pneumonia. 2. Retained purulent secretions early in this illness with her acute respiratory failure. This is improved dramatically. 3. Deconditioning. 4. Chronic kidney disease with acute decompensation. The highest her creatinine has been this admission was 1.93. She was 0.7 when she came in, I suspect this will continue to improve. I felt she was a candidate for extubation. This has been done successfully. I examined her about an hour after she was extubated and she was in no distress. She had no stridor. She will remain in the critical care unit for now. Critical care time, 30 minutes. Job ID: [id number] MTDD
[2018-04-24] MEDS: CLOZARIL 100 MG PO SCH (21:28)
--- NOTE | 2018-04-24 21:52 | PDOC.PN ---
- Subjective Encounter Start Date: 04/24/18 Encounter Start Time: 14:00 Patient seen and examined for Resp failure. Extubated today. No new complaints. No overnight events - Objective MAR Reviewed: Yes Vital Signs & Weight: Vital Signs (12 hours) Temp Pulse Pulse Pulse Resp BP BP 04/24/18 20:00 98.6 F 04/24/18 18:15 90 14 04/24/18 18:14 90 14 04/24/18 15:50 99 20 04/24/18 15:00 98.4 F 04/24/18 14:02 83 88 113/68 04/24/18 12:32 106 H 20 04/24/18 12:00 98.5 F 04/24/18 10:58 107 H 149/77 H 04/24/18 10:57 109 H 24 H 04/24/18 10:00 22 H BP Pulse Ox Pulse Ox Pulse Ox 04/24/18 20:00 04/24/18 18:15 95 04/24/18 18:14 95 04/24/18 15:50 96 04/24/18 15:00 04/24/18 14:02 126/70 95 96 04/24/18 12:32 95 04/24/18 12:00 95 04/24/18 10:58 04/24/18 10:57 91 L 04/24/18 10:00 Weight Admit Weight 245 lb Weight 255 lb 15.307 oz Most Recent Monitor Data Heart Rate from ECG 94 NIBP 151/70 NIBP BP-Mean 97 Respiration from ECG 17 SpO2 97 I&O: 04/23/18 04/24/18 04/25/18 06:59 06:59 06:59 Intake Total 2324 1969 392 Output Total 2425 9560 2740 Balance -1041 -2931 -2348 Result Diagrams: 04/25/18 03:45 04/25/18 03:45 Additional Labs: Accuchecks 04/24/18 04/24/18 04/24/18 21:27 15:21 09:29 POC Glucose 154 H 184 H 126 H 04/24/18 05:27 POC Glucose 131 H EKG Reviewed by me: Yes (Tele SR) Phys Exam - Physical Examination Constitutional: NAD Respiratory: no wheezing, no rhonchi Rales at bases radha R Cardiovascular: RRR, no rub Gastrointestinal: soft, non-tender, positive bowel sounds Neurological: moves all 4 limbs Dx/Plan - Plan DVT proph w/heparin, DVT proph w/SCDs 1. Acute hypoxic and hypercapnic respiratory failure secondary to pneumonia,? Aspiration pneumonia - s/p Mech Vent (extubated 04/24) 2. Toxic metabolic encephalopathy, multifactorial. improving 3. Sepsis with acute organ dysfunction secondary to pneumonia?Aspiration with parapneumonic effusion s/p chest tube (dced 04/24) 4. Anemia of unclear etiology. s/p 1 unit PRBC 5. COPD exacerbation - on IV Steroids 6. GILMER on CKD 2. 7. Chronic pain syndrome. 8. Diabetes mellitus type 2. 9. Hyperlipidemia. 10. Anxiety and schizophrenia. 11. Hypertension. 12. History of breast cancer. 13. History of seizure disorder. 14. Obstructive sleep apnea, on BiPAP at home per previous record. 15. Diarrhea - r/o C diff PLAN: Cont Atbx/Nebs/Steroids Cont sliding scale with Lantus Cont other meds as below Start SQ Heparin AM labs Review of Systems - Review of Systems Cardiovascular: negative: chest pain, palpitations, orthopnea, paroxysmal nocturnal dyspnea, edema, light headedness, other Gastrointestinal: negative: Nausea, Vomiting, Abdominal Pain, Diarrhea, Constipation, Melena, Hematochezia, Other - Medications/Allergies Allergies/Adverse Reactions: Allergies Allergy/AdvReac Type Severity Reaction Status Date / Time codeine Allergy Verified 04/14/18 23:04 duloxetine [From Cymbalta] Allergy Verified 04/14/18 23:04 gabapentin Allergy Verified 04/14/18 23:04 pregabalin [From Lyrica] Allergy Verified 04/14/18 23:04 Medications: Current Medications Acetaminophen (Tylenol Elixir) 650 mg PO Q6H PRN PRN Reason: Fever > 101 or Mild Pain Acetaminophen (Tylenol) 650 mg NE Q6H PRN PRN Reason: Fever > 101 or Mild Pain Last Admin: 04/15/18 03:15 Dose: 650 mg Albuterol/Ipratropium (Duoneb) 3 ml NEB [id number] ODETTE Last Admin: 04/24/18 18:14 Dose: 3 ml Albuterol/Ipratropium (Duoneb) 3 ml NEB Q2H PRN PRN Reason: SOB &/or Wheezing Lipase/Protease/Amylase ([place] [id number]) 1 cap FS .PER PROTOCOL PRN PRN Reason: TUBE OCCLUSION PROTOCOL Bisacodyl (Dulcolax) 10 mg NE DAILYPRN PRN PRN Reason: Constipation Budesonide (Pulmicort Neb Solution) 0.5 mg INH BID-RT [facility] Last Admin: 04/24/18 18:15 Dose: 0.5 mg Dextrose/Water (Dextrose 50%) 25 gm SLOW IVP PRN PRN PRN Reason: Hypoglycemia Famotidine (Pepcid) 20 mg SLOW IVP Q12HR [facility] Last Admin: 04/24/18 20:52 Dose: 20 mg Furosemide (Lasix) 40 mg SLOW IVP 0600 [facility] Last Admin: 04/24/18 06:31 Dose: 40 mg Glucagon (Glucagon) 1 mg IM PRN PRN PRN Reason: Hypoglycemia Heparin Sodium (Porcine) (Heparin) 5,000 units SC TID [facility] Last Admin: 04/24/18 20:52 Dose: 5,000 units Dextrose/Water (D5w) 1,000 mls @ 0 mls/hr IV .Q0M PRN PRN Reason: Hypoglycemia Fentanyl Citrate (Fentanyl Bolus) 250 mls @ 0 mls/hr IVPB PRN PRN PRN Reason: Breakthrough pain/agitation Stop: 05/14/18 19:28 Fentanyl Citrate 2,000 mcg/ (Sodium Chloride) 100 mls @ 0 mls/hr IV INF [facility]; Protocol Stop: 05/14/18 19:30 Last Admin: 04/21/18 06:34 Dose: 100 mls Levofloxacin 750 mg/ Device 150 mls @ 100 mls/hr IVPB Q2D@2100 [facility] Last Admin: 04/23/18 20:25 Dose: 150 mls Insulin Glargine 15 units/ (Miscellaneous Medication) 0.15 mls @ 0 mls/hr SC BID [facility] Last Admin: 04/24/18 21:34 Dose: 0.15 mls Insulin Human Regular (Humulin R) 0 units SC .BEDTIME SLIDING SC PRN PRN Reason: Bedtime Correctional Scale Last Admin: 04/20/18 00:38 Dose: 3 unit Insulin Human Regular (Humulin R) 0 units SC .AGGRESSIVE SLIDING PRN PRN Reason: Aggressive Sliding Scale Last Admin: 04/23/18 17:13 Dose: 3 unit Lamotrigine (Lamictal) 50 mg PER TUBE 08,20 [facility] Last Admin: 04/24/18 20:59 Dose: 50 mg Methylprednisolone Sodium Succinate (Solu-Medrol) 40 mg IVP DAILY [facility] Last Admin: 04/24/18 08:48 Dose: 40 mg Mineral Oil/White Petrolatum (Systane Nighttime Eye Ointment) 0 gm EA EYE PRN PRN PRN Reason: Dry Eyes Miscellaneous Medication (Ventilator Sedation Protocol) 1 each FS ONE [facility] Stop: 05/14/18 19:16 Miscellaneous Medication (Pharmacy To Dose) 1 each IVPB PRN PRN PRN Reason: Pharmacy to dose Miscellaneous Medication (Pharmacy To Dose) 0 each IVPB PRN PRN PRN Reason: [facility] Pharmacy to Dose Miscellaneous Medication (Pharmacy To Dose) 1 each IVPB DAILYPRN PRN PRN Reason: LABS Discontinue Previous Narcotic Pain Medications And Benzodiazepines 1 each FS .ONE [facility] Stop: 05/14/18 19:28 Clozaril 100 Mg Tab 4 each PO HS [facility] Last Admin: 04/24/18 21:28 Dose: 4 each Propofol (Diprivan) 1,000 mg IV INF PRN; Protocol PRN Reason: TO ACHIEVE GOAL RASS Stop: 05/14/18 19:28 Propofol (Diprivan Bolus) 20 mg IV Q5MIN PRN PRN Reason: BREAKTHROUGH AGITATION Stop: 05/14/18 19:28 Saccharomyces Boulardii (Florastor) 250 mg PER TUBE DAILY [facility] Last Admin: 04/24/18 08:48 Dose: 250 mg Sodium Bicarbonate (Bicarbonate, Sodium) 650 mg PER TUBE .PER PROTOCOL PRN PRN Reason: ENTERAL TUBE OCCLUSION Sodium Chloride (Flush - Normal Saline) 10 ml IVF PRN PRN PRN Reason: Saline Flush Sodium Chloride (Flush - Normal Saline) 10 ml IVF Q12HR [facility] Last Admin: 04/24/18 21:25 Dose: 10 ml
[2018-04-25 04:49] LABS: #Eosinphils 0.2 thou/uL (0.0-0.7); #Lymphocytes 0.8 thou/uL (1.20-3.40); #Monocytes 0.7 thou/uL (0.11-0.59); #Neutrophils 14.1 thou/uL (1.40-6.50); %Lymphocytes 4.9 % (21.0-51.0); %Monocytes 4.6 % (0.0-10.0); %Neutrophils 89.5 % (42.0-75.0); Hemoglobin 9.3 g/dL (12.0-16.0); Mean Corpuscular HGB CONC 31.4 g/dL (32.0-36.0); Mean Corpuscular Hemoglobin 29.9 pg (27.0-31.0); Mean Corpuscular Volume 95.4 fL (78.0-98.0); Mean Platelet Volume 6.9 fL (7.4-10.4); Platelet Count 363 thou/uL (130-400); RBC Distribution Width 15.7 % (11.5-14.5); Red Blood Cell (RBC) Count 3.11 mill/uL (4.20-5.40); White Blood Cell (WBC) Count 15.8 thou/uL (4.8-10.8)
[2018-04-25 04:59] LABS: Anion Gap 14 mmol/L (10-20); BUN (Urea Nitrogen) 53 mg/dL (9.8-20.1); Calc. Creatinine Clearance 64 mL/min (70-130); Calcium 8.7 mg/dL (7.8-10.44); Carbon Dioxide 31 mmol/L (22-29); Chloride 104 mmol/L (98-107); Estimated GFR-MDRD 30; Glucose 98 mg/dL (70-105); Potassium 4.4 mmol/L (3.5-5.1); Sodium 145 mmol/L (136-145)
[2018-04-25] MEDS: Furosemide 40 MG/4 ML VIAL SLOW IVP SCH (05:35)
[2018-04-25] MEDS: Budesonide 0.5 MG/2 ML NEB INH SCH ×2 (06:39→18:35)
[2018-04-25] MEDS: Famotidine/PF 20 mg/2ml Vial SLOW IVP SCH (08:46)
[2018-04-25] MEDS: Saccharomyces boulardii 250 MG CAP PER TUBE SCH (08:46)
[2018-04-25] MEDS: lamoTRIgine 25 MG TAB PER TUBE SCH ×2 (08:47→20:30)
[2018-04-25] MEDS: Heparin 5,000 UNITS/ML VIAL SC SCH ×3 (08:47→20:42)
--- NOTE | 2018-04-25 09:53 | PDOC.PN ---
- Subjective Encounter Start Date: 04/25/18 Encounter Start Time: 09:15 Patient seen and examined for Resp failure. Some discomfort over the chest tube site. No new complaints. No overnight events - Objective MAR Reviewed: Yes Vital Signs & Weight: Vital Signs (12 hours) Temp Pulse Resp Pulse Ox 04/25/18 06:39 91 13 98 04/25/18 06:37 88 13 98 04/25/18 04:00 97.5 F L 04/25/18 02:31 95 16 99 04/25/18 02:30 16 99 04/25/18 00:00 98.5 F 04/24/18 22:35 16 99 04/24/18 22:23 94 20 98 Weight Admit Weight 245 lb Weight 243 lb 13.3 oz Most Recent Monitor Data Heart Rate from ECG 91 NIBP 96/67 NIBP BP-Mean 76 Respiration from ECG 21 SpO2 97 I&O: 04/24/18 04/25/18 04/26/18 06:59 06:59 06:59 Intake Total 1969 392 Output Total 490 3415 250 [id number] -3023 -250 Result Diagrams: 04/25/18 03:45 04/25/18 03:45 Additional Labs: Accuchecks 04/25/18 04/24/18 04/24/18 04:00 21:27 15:21 POC Glucose 104 154 H 184 H 04/24/18 09:29 POC Glucose 126 H EKG Reviewed by me: Yes (Tele SR) Phys Exam - Physical Examination Constitutional: NAD Respiratory: no wheezing, no rhonchi few rales at bases Cardiovascular: RRR, no rub Gastrointestinal: soft, non-tender, positive bowel sounds Dx/Plan - Plan DVT proph w/heparin, DVT proph w/SCDs 1. Acute hypoxic and hypercapnic respiratory failure secondary to pneumonia,? Aspiration pneumonia - s/p Mech Vent (extubated 04/24) 2. Toxic metabolic encephalopathy, multifactorial. improving 3. Sepsis with acute organ dysfunction secondary to pneumonia?Aspiration with parapneumonic effusion s/p chest tube (dced 04/24) 4. Anemia of unclear etiology. s/p 1 unit PRBC 5. COPD exacerbation - on IV Steroids/Nebs 6. GILMER on CKD 2. 7. Chronic pain syndrome. 8. Diabetes mellitus type 2. 9. Hyperlipidemia. 10. Anxiety and schizophrenia. 11. Hypertension. 12. History of breast cancer. 13. History of seizure disorder. 14. Obstructive sleep apnea, on BiPAP at home per previous record. 15. Diarrhea - r/o C diff PLAN: Cont sliding scale - change to mild Reduce Lantus to 15 units daily Cont Atbx/Nebs/Steroids/diuretics Cont other meds as below AM labs Review of Systems - Review of Systems Constitutional: negative: fever, chills, sweats, weakness, malaise, other Cardiovascular: negative: chest pain, palpitations, orthopnea, paroxysmal nocturnal dyspnea, edema, light headedness, other Gastrointestinal: negative: Nausea, Vomiting, Abdominal Pain, Diarrhea, Constipation, Melena, Hematochezia, Other - Medications/Allergies Allergies/Adverse Reactions: Allergies Allergy/AdvReac Type Severity Reaction Status Date / Time codeine Allergy Verified 04/14/18 23:04 duloxetine [From Cymbalta] Allergy Verified 04/14/18 23:04 gabapentin Allergy Verified 04/14/18 23:04 pregabalin [From Lyrica] Allergy Verified 04/14/18 23:04 Medications: Current Medications Acetaminophen (Tylenol Elixir) 650 mg PO Q6H PRN PRN Reason: Fever > 101 or Mild Pain Acetaminophen (Tylenol) 650 mg FL Q6H PRN PRN Reason: Fever > 101 or Mild Pain Last Admin: 04/15/18 03:15 Dose: 650 mg Albuterol/Ipratropium (Duoneb) 3 ml NEB [id number] ODETTE Last Admin: 04/25/18 06:37 Dose: 3 ml Albuterol/Ipratropium (Duoneb) 3 ml NEB Q2H PRN PRN Reason: SOB &/or Wheezing Lipase/Protease/Amylase ([place] [id number]) 1 cap FS .PER PROTOCOL PRN PRN Reason: TUBE OCCLUSION PROTOCOL Bisacodyl (Dulcolax) 10 mg FL DAILYPRN PRN PRN Reason: Constipation Budesonide (Pulmicort Neb Solution) 0.5 mg INH BID-RT [facility] Last Admin: 04/25/18 06:39 Dose: 0.5 mg Dextrose/Water (Dextrose 50%) 25 gm SLOW IVP PRN PRN PRN Reason: Hypoglycemia Famotidine (Pepcid) 20 mg SLOW IVP Q12HR [facility] Last Admin: 04/25/18 08:46 Dose: 20 mg Furosemide (Lasix) 40 mg SLOW IVP 0600 [facility] Last Admin: 04/25/18 05:35 Dose: 40 mg Glucagon (Glucagon) 1 mg IM PRN PRN PRN Reason: Hypoglycemia Heparin Sodium (Porcine) (Heparin) 5,000 units SC TID [facility] Last Admin: 04/25/18 08:47 Dose: 5,000 units Dextrose/Water (D5w) 1,000 mls @ 0 mls/hr IV .Q0M PRN PRN Reason: Hypoglycemia Fentanyl Citrate (Fentanyl Bolus) 250 mls @ 0 mls/hr IVPB PRN PRN PRN Reason: Breakthrough pain/agitation Stop: 05/14/18 19:28 Fentanyl Citrate 2,000 mcg/ (Sodium Chloride) 100 mls @ 0 mls/hr IV INF [facility]; Protocol Stop: 05/14/18 19:30 Last Admin: 04/21/18 06:34 Dose: 100 mls Levofloxacin 750 mg/ Device 150 mls @ 100 mls/hr IVPB Q2D@2100 [facility] Last Admin: 04/23/18 20:25 Dose: 150 mls Insulin Glargine 15 units/ (Miscellaneous Medication) 0.15 mls @ 0 mls/hr SC BID [facility] Last Admin: 04/24/18 21:34 Dose: 0.15 mls Insulin Human Regular (Humulin R) 0 units SC .BEDTIME SLIDING SC PRN PRN Reason: Bedtime Correctional Scale Last Admin: 04/20/18 00:38 Dose: 3 unit Insulin Human Regular (Humulin R) 0 units SC .AGGRESSIVE SLIDING PRN PRN Reason: Aggressive Sliding Scale Last Admin: 04/23/18 17:13 Dose: 3 unit Lamotrigine (Lamictal) 50 mg PER TUBE ,20 [facility] Last Admin: 04/25/18 08:47 Dose: 50 mg Methylprednisolone Sodium Succinate (Solu-Medrol) 40 mg IVP DAILY [facility] Last Admin: 04/25/18 08:46 Dose: 40 mg Mineral Oil/White Petrolatum (Systane Nighttime Eye Ointment) 0 gm EA EYE PRN PRN PRN Reason: Dry Eyes Miscellaneous Medication (Ventilator Sedation Protocol) 1 each FS ONE [facility] Stop: 05/14/18 19:16 Miscellaneous Medication (Pharmacy To Dose) 1 each IVPB PRN PRN PRN Reason: Pharmacy to dose Miscellaneous Medication (Pharmacy To Dose) 0 each IVPB PRN PRN PRN Reason: [facility] Pharmacy to Dose Miscellaneous Medication (Pharmacy To Dose) 1 each IVPB DAILYPRN PRN PRN Reason: LABS Discontinue Previous Narcotic Pain Medications And Benzodiazepines 1 each FS .ONE [facility] Stop: 05/14/18 19:28 Clozaril 100 Mg Tab 4 each PO HS [facility] Last Admin: 04/24/18 21:28 Dose: 4 each Propofol (Diprivan) 1,000 mg IV INF PRN; Protocol PRN Reason: TO ACHIEVE GOAL RASS Stop: 05/14/18 19:28 Propofol (Diprivan Bolus) 20 mg IV Q5MIN PRN PRN Reason: BREAKTHROUGH AGITATION Stop: 05/14/18 19:28 Saccharomyces Boulardii (Florastor) 250 mg PER TUBE DAILY [facility] Last Admin: 04/25/18 08:46 Dose: 250 mg Sodium Bicarbonate (Bicarbonate, Sodium) 650 mg PER TUBE .PER PROTOCOL PRN PRN Reason: ENTERAL TUBE OCCLUSION Sodium Chloride (Flush - Normal Saline) 10 ml IVF PRN PRN PRN Reason: Saline Flush Sodium Chloride (Flush - Normal Saline) 10 ml IVF Q12HR [facility] Last Admin: 04/25/18 08:47 Dose: 10 ml
[2018-04-25] MEDS ORDERED: DC Sedation Protocol FS ONE (09:56)
--- NOTE | 2018-04-25 11:54 | PRG ---
DATE OF SERVICE: 04/25/2018 SERVICE: Pulmonary Medicine. INTERVAL HISTORY: The patient is doing fine from respiratory standpoint. Breathing comfortably. Denies any current chest pain, fevers, chills, nausea, or vomiting. She is breathing comfortably. She wants to . Otherwise, there has been no interval change to her condition. PHYSICAL EXAMINATION: VITAL SIGNS: Afebrile, pulse 96, blood pressure 136/75, respirations 16, and saturation 96% on 3 L nasal cannula. GENERAL: The patient is awake and alert, in no apparent distress. LUNGS: Excellent air entry. There is crackles present. No prolonged expiratory phase or wheezing is appreciated. HEART: Normal rate, regular. ABDOMEN: Soft, nontender, and nondistended. Bowel sounds are positive. MUSCULOSKELETAL: No cyanosis or clubbing. No pitting in bilateral lower extremities, though she has 2 to 3+ pitting at the sacral region, in bilateral upper extremities at this point. : Mead catheter in place. NEUROLOGIC: Grossly nonfocal. She demonstrates diffuse weakness. LABORATORY DATA: Sodium 145, potassium 4.4, and creatinine 1.72. Basic metabolic profile is otherwise unremarkable. C. diff antigen and toxin were unremarkable. ASSESSMENT: 1. Acute hypoxic respiratory failure, improving. 2. Community-acquired pneumonia, severe. 3. Acute kidney injury, likely secondary to infection and vancomycin toxicity. 4. Morbid obesity. 5. Deconditioning, severe. DISCUSSION AND PLAN: I will put in a referral for her to go to an LTAC facility or fdc facility. She is not likely to leave this hospital any time soon given her severe deconditioning. She will work with Physical Therapy. We need to continue to diurese her through time, but to prevent her from becoming hypernatremic, we will introduce a trickle of free water for the next 24 hours. Pulmonary/Critical Care will continue to follow along, but from my perspective, she is stable for transition out of the hospital or to the [facility]. Job ID: [id number]
[2018-04-25] MEDS: Insulin Glargine 15 UNITS in Pre-Filled Syringe 1 EACH SC SCH (19:21)
[2018-04-25] MEDS: Famotidine 20 MG TAB PO SCH (20:29)
[2018-04-25] MEDS: CLOZARIL 100 MG PO SCH (20:30)
[2018-04-26 03:58] LABS: #Eosinphils 0.1 thou/uL (0.0-0.7); #Lymphocytes 0.6 thou/uL (1.20-3.40); #Monocytes 0.8 thou/uL (0.11-0.59); #Neutrophils 13.6 thou/uL (1.40-6.50); %Basophils 0.2 % (0.0-1.0); %Eosinophils 0.9 % (0.0-10.0); %Lymphocytes 3.9 % (21.0-51.0); %Monocytes 5.1 % (0.0-10.0); Hemoglobin 10.1 g/dL (12.0-16.0); Mean Corpuscular HGB CONC 31.6 g/dL (32.0-36.0); Mean Corpuscular Hemoglobin 29.9 pg (27.0-31.0); Mean Corpuscular Volume 94.6 fL (78.0-98.0); Mean Platelet Volume 6.4 fL (7.4-10.4); Platelet Count 331 thou/uL (130-400); RBC Distribution Width 15.4 % (11.5-14.5); Red Blood Cell (RBC) Count 3.38 mill/uL (4.20-5.40); White Blood Cell (WBC) Count 15.1 thou/uL (4.8-10.8)
[2018-04-26 04:36] LABS: Anion Gap 15 mmol/L (10-20); BUN (Urea Nitrogen) 47 mg/dL (9.8-20.1); Calc. Creatinine Clearance 59 mL/min (70-130); Carbon Dioxide 33 mmol/L (22-29); Chloride 100 mmol/L (98-107); Estimated GFR-MDRD 29; Glucose 106 mg/dL (70-105); Magnesium 2.2 mg/dL (1.6-2.6); Potassium 3.9 mmol/L (3.5-5.1); Sodium 144 mmol/L (136-145)
[2018-04-26] MEDS: Furosemide 40 MG/4 ML VIAL SLOW IVP SCH (06:17)
[2018-04-26] MEDS: Budesonide 0.5 MG/2 ML NEB INH SCH ×2 (07:29→18:25)
[2018-04-26] MEDS ORDERED: Insulin Glargine 15 UNITS in Pre-Filled Syringe 1 EACH SC SCH (09:00)
[2018-04-26] MEDS: lamoTRIgine 25 MG TAB PER TUBE SCH ×2 (10:15→19:47)
[2018-04-26] MEDS: Heparin 5,000 UNITS/ML VIAL SC SCH ×3 (10:16→20:00)
[2018-04-26] MEDS: Saccharomyces boulardii 250 MG CAP PER TUBE SCH (10:16)
[2018-04-26] MEDS: Famotidine 20 MG TAB PO SCH (10:16)
--- NOTE | 2018-04-26 13:31 | PRG ---
DATE OF SERVICE: 04/26/2018 SERVICE: Pulmonary Medicine. INTERVAL HISTORY: The patient is doing fine from a respiratory standpoint. Breathing comfortably. There has been no notable change to her condition. She continues to have a little persistent encephalopathy, but this is much improved. Her strength is better, and she has been able to sit up on the side of the bed. OBJECTIVE: VITAL SIGNS: Afebrile, pulse 89, blood pressure 116/69, respirations 18, and saturation 96% on 3 L nasal cannula. GENERAL: The patient is awake and alert, in no apparent distress. LUNGS: Poor air entry. There is no prolonged expiratory phase. Rhonchi are present. She has an anemic cough and has a hard time clearing her secretions. HEENT: Normocephalic and atraumatic. Sclerae are white. Conjunctivae are pink. Oral mucosa is moist without lesions. HEART: Normal rate, regular. ABDOMEN: Soft, nontender, and nondistended. Bowel sounds are positive. MUSCULOSKELETAL: No cyanosis or clubbing. No pitting in bilateral lower extremities. NEUROLOGIC: Grossly nonfocal. LABORATORY DATA: WBC 15.1 and downtrending, hemoglobin 10.1, platelets 331,000, neutrophil count is 90%. Creatinine 1.77 and roughly stable, BUN 47. Basic metabolic profile is otherwise unremarkable. Magnesium 2.2. C difficile antigen and toxin is negative. Respiratory culture and blood cultures x2 are unremarkable. ASSESSMENT: 1. Acute hypoxic respiratory failure, resolving. 2. Community-acquired pneumonia, severe. 3. Acute kidney injury, secondary to infection and vancomycin toxicity. 4. Morbid obesity. 5. Deconditioning, severe. DISCUSSION AND PLAN: We will continue our antibiotics and mobilization efforts through time. We will get her out of bed and into a chair once possible. Her hypernatremia has improved a little bit, but we will continue the free water over the next 24 hours. I believe she is in a position where she can be transitioned to an LTAC in 24 to 48 hours. Job ID: [id number]
[2018-04-26] MEDS: HYDROcodone/Acetaminophen 10/325 mg Tablet PO PRN ×2 (13:48→19:46)
--- NOTE | 2018-04-26 18:54 | PDOC.PN ---
- Subjective Encounter Start Date: 04/26/18 Encounter Start Time: 15:00 Subjective: Resting comfortably. Notes WRIGHT, did get up to the side of the bed with -: help. She has some difficulty maintaining attention during conversation - Objective Vital Signs & Weight: Vital Signs (12 hours) Temp Pulse Resp BP Pulse Ox 04/26/18 18:25 95 20 95 04/26/18 15:25 97.7 F 100 22 H 116/64 95 04/26/18 15:04 101 H 18 94 L 04/26/18 10:52 97.6 F 98 18 116/69 96 04/26/18 10:43 96 20 96 04/26/18 08:00 96 04/26/18 07:30 88 17 100 04/26/18 07:29 85 12 100 04/26/18 07:20 97.6 F 86 13 126/65 100 Weight Admit Weight 245 lb Weight 223 lb 12.8 oz Most Recent Monitor Data Heart Rate from ECG 103 NIBP 158/91 NIBP BP-Mean 113 Respiration from ECG 19 SpO2 93 I&O: 04/25/18 04/26/18 04/27/18 06:59 06:59 06:59 Intake Total 392 970 Output Total 3415 2120 Balance -3023 -1150 Result Diagrams: 04/26/18 03:48 04/26/18 03:48 Additional Labs: Accuchecks 04/26/18 04/26/18 04/26/18 16:42 10:43 06:19 POC Glucose 194 H 118 H 84 04/25/18 20:33 POC Glucose 168 H Phys Exam - Physical Examination Awake, poor attention to parts of conversation HEENT: PERRLA, oral pharynx no lesions Neck: supple, full ROM Aeration fair Cardiovascular: RRR Gastrointestinal: soft, non-tender obese Musculoskeletal: no edema Neurological: non-focal, moves all 4 limbs Deviation from normal: Oriented to person/place, "March 2018" Dx/Plan (1) Acute respiratory failure with hypoxia Code(s): J96.01 - ACUTE RESPIRATORY FAILURE WITH HYPOXIA Status: Acute Plan: Improving, extubated 04/24 (2) Community acquired bacterial pneumonia Code(s): J15.9 - UNSPECIFIED BACTERIAL PNEUMONIA Status: Acute Plan: Improving (3) Acute kidney injury Code(s): N17.9 - ACUTE KIDNEY FAILURE, UNSPECIFIED Status: Acute Plan: Improving (4) Severe muscle deconditioning Code(s): R29.898 - OTH SYMPTOMS AND SIGNS INVOLVING THE MUSCULOSKELETAL SYSTEM Status: Acute Comment: Referral for placement/PT/OT (5) Toxic metabolic encephalopathy Code(s): G92 - TOXIC ENCEPHALOPATHY Status: Acute Comment: Improving (6) JAMES treated with BiPAP Code(s): G47.33 - OBSTRUCTIVE SLEEP APNEA (ADULT) (PEDIATRIC) Status: Acute Comment: Will need ongoing bipap support at home (7) Hypernatremia Code(s): E87.0 - HYPEROSMOLALITY AND HYPERNATREMIA Status: Acute Comment: Mild, receiving free water - Plan cont current plan of care, continue antibiotics, PT/OT * Discuss disposition options with case repairer. Check AML. Long recovery expected.
[2018-04-26] MEDS: Amoxicillin/Potassium Clav 875 MG TAB PO SCH (19:59)
[2018-04-26] MEDS: CLOZARIL 100 MG PO SCH (20:00)
[2018-04-27 05:34] LABS: #Eosinphils 0.5 thou/uL (0.0-0.7); #Lymphocytes 0.8 thou/uL (1.20-3.40); #Monocytes 0.9 thou/uL (0.11-0.59); #Neutrophils 12.8 thou/uL (1.40-6.50); %Eosinophils 3.7 % (0.0-10.0); %Lymphocytes 5.5 % (21.0-51.0); %Monocytes 5.8 % (0.0-10.0); Mean Corpuscular HGB CONC 31.4 g/dL (32.0-36.0); Mean Corpuscular Hemoglobin 29.4 pg (27.0-31.0); Mean Corpuscular Volume 93.8 fL (78.0-98.0); Mean Platelet Volume 7.2 fL (7.4-10.4); Platelet Count 262 thou/uL (130-400); RBC Distribution Width 15.4 % (11.5-14.5); Red Blood Cell (RBC) Count 3.41 mill/uL (4.20-5.40); White Blood Cell (WBC) Count 15.1 thou/uL (4.8-10.8)
[2018-04-27 05:39] LABS: Anion Gap 13 mmol/L (10-20); BUN (Urea Nitrogen) 39 mg/dL (9.8-20.1); Calc. Creatinine Clearance 57 mL/min (70-130); Calcium 8.6 mg/dL (7.8-10.44); Carbon Dioxide 34 mmol/L (22-29); Chloride 100 mmol/L (98-107); Estimated GFR-MDRD 31; Glucose 126 mg/dL (70-105); Sodium 143 mmol/L (136-145)
[2018-04-27] MEDS: Budesonide 0.5 MG/2 ML NEB INH SCH ×2 (07:27→19:00)
[2018-04-27] MEDS: lamoTRIgine 25 MG TAB PER TUBE SCH ×2 (08:32→20:31)
[2018-04-27] MEDS: HYDROcodone/Acetaminophen 10/325 mg Tablet PO PRN ×2 (08:32→20:32)
[2018-04-27] MEDS: Heparin 5,000 UNITS/ML VIAL SC SCH ×3 (08:33→20:33)
[2018-04-27] MEDS: Amoxicillin/Potassium Clav 875 MG TAB PO SCH ×2 (08:33→20:32)
[2018-04-27] MEDS: Saccharomyces boulardii 250 MG CAP PER TUBE SCH (08:33)
[2018-04-27] MEDS: Famotidine 20 MG TAB PO SCH (08:33)
--- NOTE | 2018-04-27 12:57 | PRG ---
DATE OF SERVICE: SERVICE: Pulmonary Medicine. INTERVAL HISTORY: The patient actually stood today with Physical Therapy. She has no complaints of fevers, chills, nausea, or vomiting. Otherwise, there has been no interval change to her condition. PHYSICAL EXAMINATION: VITAL SIGNS: Afebrile, pulse 90, blood pressure 128/65, respirations 16, saturation 97% on 3 L nasal cannula. GENERAL: The patient is awake and alert, in no apparent distress. LUNGS: Excellent air entry. There is no prolonged expiratory phase or wheezing present. HEART: Normal rate and regular. ABDOMEN: Soft, nontender, and nondistended. Bowel sounds are positive. MUSCULOSKELETAL: No cyanosis or clubbing. There is no pitting in the bilateral lower extremities. NEUROLOGIC: Grossly nonfocal. LABORATORY DATA: WBC 15.1, hemoglobin 10.0, and platelets 262,000. Creatinine 1.69, and gently downtrending. Basic metabolic profile is otherwise unremarkable. Sodium is 143, and gently downtrending. All culture results remain negative to date. ASSESSMENT: 1. Acute hypoxic respiratory failure, resolving. 2. Community-acquired pneumonia, severe. 3. Acute kidney injury secondary to infection and vancomycin toxicity, resolving. 4. Morbid obesity. 5. Severe deconditioning. DISCUSSION AND PLAN: We will continue our mobilization efforts. We will also continue our empiric antibiotics. She will need a long course of antibiotics because of likely necrotizing pneumonia with a history of empyema. If her white blood cell count does not trend down through the weekend, on Monday we will plan on repeating a CT of the chest with contrast if we are allowed to. Pulmonary Critical Care will continue to follow along, but ultimately on discharge from the hospital she will need an LTAC placement. Job ID: [id number]
--- NOTE | 2018-04-27 19:54 | PDOC.PN ---
- Subjective Encounter Start Date: 04/27/18 Encounter Start Time: 18:00 Subjective: Patient's friend and caregiver is in room. Some intermittant confusion -: but overall patient is doing much better. Stood up with PT today. Becomes -: fatigued with minimal activity (brushing her teeth), needs encouragement - Objective Vital Signs & Weight: Vital Signs (12 hours) Temp Pulse Pulse Pulse Resp BP BP 04/27/18 19:35 97.4 F L 95 18 04/27/18 19:00 92 16 04/27/18 18:59 94 16 04/27/18 15:30 97.0 F L 91 04/27/18 15:14 95 17 04/27/18 15:08 94 16 04/27/18 11:26 96.8 F L 16 04/27/18 11:20 89 87 132/72 128/65 04/27/18 11:19 04/27/18 11:17 90 16 04/27/18 08:00 BP Pulse Ox Pulse Ox Pulse Ox 04/27/18 19:35 114/82 100 04/27/18 19:00 98 04/27/18 18:59 98 04/27/18 15:30 128/93 H 100 04/27/18 15:14 97 04/27/18 15:08 97 04/27/18 11:26 128/65 97 04/27/18 11:20 99 100 04/27/18 11:19 99 04/27/18 11:17 99 04/27/18 08:00 98 Weight Admit Weight 227 lb 8.273 oz Weight 226 lb 12.8 oz Most Recent Monitor Data Heart Rate from ECG 103 NIBP 158/91 NIBP BP-Mean 113 Respiration from ECG 19 SpO2 93 I&O: 04/26/18 04/27/18 04/28/18 06:59 06:59 06:59 Intake Total 970 1040 680 Output Total 2120 2750 750 Balance -1150 -1710 -70 Result Diagrams: 04/27/18 04:53 04/27/18 04:53 Additional Labs: Accuchecks 04/27/18 04/27/18 04/27/18 16:49 10:47 06:26 POC Glucose 131 H 132 H 125 H 04/26/18 19:58 POC Glucose 160 H Phys Exam - Physical Examination Comfortable HEENT: moist MMs, oral pharynx no lesions Neck: supple, full ROM Inspiratory effort suboptimal. Lungs overall fairly clear Cardiovascular: RRR Gastrointestinal: soft, non-tender Musculoskeletal: no edema Neurological: non-focal Psychiatric: A&O x 3 Skin: no rash Dx/Plan (1) Acute respiratory failure with hypoxia Code(s): J96.01 - ACUTE RESPIRATORY FAILURE WITH HYPOXIA Status: Acute Comment: Improved, on [place] oxygen (2) Community acquired bacterial pneumonia Code(s): J15.9 - UNSPECIFIED BACTERIAL PNEUMONIA Status: Acute Comment: Monitoring fever curve and WBS, per pulm, with possible repeat CT if either parameter indicate complication such as empyema (3) Acute kidney injury Code(s): N17.9 - ACUTE KIDNEY FAILURE, UNSPECIFIED Status: Acute Comment: Better (4) Severe muscle deconditioning Code(s): R29.898 - OTH SYMPTOMS AND SIGNS INVOLVING THE MUSCULOSKELETAL SYSTEM Status: Acute Comment: Referral for placement/PT/OT (5) Toxic metabolic encephalopathy Code(s): G92 - TOXIC ENCEPHALOPATHY Status: Acute Comment: Improving (6) JAMES treated with BiPAP Code(s): G47.33 - OBSTRUCTIVE SLEEP APNEA (ADULT) (PEDIATRIC) Status: Acute Comment: Will need ongoing bipap support at home (7) Hypernatremia Code(s): E87.0 - HYPEROSMOLALITY AND HYPERNATREMIA Status: Acute Comment: Mild, receiving free water - Plan * Discussed options with patient and her trusted caregiver/friend, with patient' s permission. Trial of LTAC referral. If not a candidate, she is open to SNF. I explained no inpt rehab qualifying diagnosis, but will ask case management to confirm that. [facility] options could include [facility], where she has been before. They also asked about an option called [facility]"? I was not familiar. Case management reconsulted for help, goal transition out of hospital early next week.
[2018-04-27] MEDS: CLOZARIL 100 MG PO SCH (20:33)
[2018-04-28 04:44] LABS: #Eosinphils 0.3 thou/uL (0.0-0.7); #Lymphocytes 0.6 thou/uL (1.20-3.40); #Monocytes 0.7 thou/uL (0.11-0.59); #Neutrophils 10.3 thou/uL (1.40-6.50); %Basophils 0.1 % (0.0-1.0); %Eosinophils 2.7 % (0.0-10.0); %Lymphocytes 5.3 % (21.0-51.0); %Monocytes 5.5 % (0.0-10.0); %Neutrophils 86.4 % (42.0-75.0); Hemoglobin 9.1 g/dL (12.0-16.0); Mean Corpuscular HGB CONC 31.3 g/dL (32.0-36.0); Mean Corpuscular Volume 96.1 fL (78.0-98.0); Platelet Count 272 thou/uL (130-400); RBC Distribution Width 15.1 % (11.5-14.5); Red Blood Cell (RBC) Count 3.03 mill/uL (4.20-5.40); White Blood Cell (WBC) Count 11.9 thou/uL (4.8-10.8)
[2018-04-28 05:02] LABS: Anion Gap 11 mmol/L (10-20); BUN (Urea Nitrogen) 29 mg/dL (9.8-20.1); Calc. Creatinine Clearance 66 mL/min (70-130); Carbon Dioxide 33 mmol/L (22-29); Chloride 98 mmol/L (98-107); Estimated GFR-MDRD 36; Potassium 4.1 mmol/L (3.5-5.1); Sodium 138 mmol/L (136-145)
[2018-04-28 05:03] LABS: Calcium 8.8 mg/dL (7.8-10.44); Glucose 118 mg/dL (70-105)
[2018-04-28] MEDS: Budesonide 0.5 MG/2 ML NEB INH SCH ×2 (06:58→18:42)
[2018-04-28] MEDS: lamoTRIgine 25 MG TAB PER TUBE SCH ×2 (08:38→20:43)
[2018-04-28] MEDS: Amoxicillin/Potassium Clav 875 MG TAB PO SCH ×2 (08:38→20:43)
[2018-04-28] MEDS: HYDROcodone/Acetaminophen 10/325 mg Tablet PO PRN ×3 (08:39→22:49)
[2018-04-28] MEDS: Saccharomyces boulardii 250 MG CAP PER TUBE SCH (08:39)
[2018-04-28] MEDS: Famotidine 20 MG TAB PO SCH (08:39)
[2018-04-28] MEDS: Heparin 5,000 UNITS/ML VIAL SC SCH ×3 (08:39→20:43)
--- NOTE | 2018-04-28 15:44 | PRG ---
DATE OF SERVICE: 04/28/2018 SERVICE: Pulmonary Medicine. INTERVAL HISTORY: The patient is doing okay from respiratory standpoint. She remains incredibly weak, but she is working with physical therapy to get out of bed and into a chair. She was able to feed herself lunch today. Otherwise, there has been no interval change to her condition. PHYSICAL EXAMINATION: VITAL SIGNS: Afebrile, pulse 102, blood pressure 125/79, respirations 16, and saturation 94% on 3 L nasal cannula. GENERAL: The patient is awake and alert, in no apparent distress. LUNGS: Decent air entry. Dependent crackles are minimal. There is decreased air entry on the right side. HEART: Normal rate, regular. ABDOMEN: Soft, nontender, and nondistended. Bowel sounds are positive. MUSCULOSKELETAL: No cyanosis or clubbing. There is no pitting in bilateral lower extremities. NEUROLOGIC: Grossly nonfocal. LABORATORY DATA: WBC of 11.9, hemoglobin 9.1, and platelets are 272,000. Creatinine 1.47 and gently downtrending. Basic metabolic profile is otherwise unremarkable. ASSESSMENT: 1. Acute hypoxic respiratory failure, improving. 2. Community-acquired pneumonia, severe. 3. Acute kidney injury secondary to infection and vancomycin toxicity, improving. 4. Morbid obesity. 5. Severe deconditioning. DISCUSSION AND PLAN: Her white blood cell count is finally starting to come down. Her acute kidney injury is starting to improve a little bit. As such, we will hold the line. We will continue to mobilize the patient as much as she tolerates. If she fails to clear her sepsis profile, we may need to repeat imaging studies. The patient is going to need a protracted course of antibiotics as I suspect she may have developed a pulmonary abscess. Pulmonary/Critical Care will continue to follow. She needs remain in the ICU for the time being. Job ID: [id number]
--- NOTE | 2018-04-28 16:10 | PDOC.PN ---
- Subjective Encounter Start Date: 04/28/18 Encounter Start Time: 15:30 Primary issue is deconditioning, sat up on side of bed today but requires a great deal of assistance. Complains of poor appetite. No nausea or vomiting, no cough. - Objective Vital Signs & Weight: Vital Signs (12 hours) Temp Pulse Pulse Pulse Resp BP BP 04/28/18 15:58 101 H 16 04/28/18 15:34 98.2 F 101 H 14 04/28/18 13:38 94 86 125/79 125/67 04/28/18 11:50 98.4 F 102 H 04/28/18 08:56 04/28/18 08:00 04/28/18 07:14 98.0 F 93 16 04/28/18 07:11 93 26 H 04/28/18 06:58 91 17 04/28/18 06:53 91 17 BP Pulse Ox Pulse Ox Pulse Ox 04/28/18 15:58 04/28/18 15:34 124/74 97 04/28/18 13:38 96 97 04/28/18 11:50 111/68 94 L 04/28/18 08:56 99 04/28/18 08:00 100 04/28/18 07:14 107/60 100 04/28/18 07:11 100 04/28/18 06:58 100 04/28/18 06:53 100 Weight Admit Weight 227 lb 8.273 oz Weight 230 lb 6.4 oz Most Recent Monitor Data Heart Rate from ECG 103 NIBP 158/91 NIBP BP-Mean 113 Respiration from ECG 19 SpO2 93 I&O: 04/27/18 04/28/18 04/29/18 06:59 06:59 06:59 Intake Total 1040 1130 Output Total 2750 1350 Balance -1710 -220 Result Diagrams: 04/28/18 04:23 04/28/18 04:23 Additional Labs: Accuchecks 04/28/18 04/28/18 04/27/18 10:53 05:36 20:17 POC Glucose 170 H 127 H 139 H 04/27/18 16:49 POC Glucose 131 H Phys Exam - Physical Examination Resting, fairly comfortable HEENT: PERRLA, oral pharynx no lesions Neck: full ROM Decreased bs bases Cardiovascular: RRR Gastrointestinal: soft, non-tender Mild peripheral edema Neurological: non-focal, moves all 4 limbs Psychiatric: normal affect Deviation from normal: Oriented to person, place, some confusion on time Dx/Plan (1) Acute respiratory failure with hypoxia Code(s): J96.01 - ACUTE RESPIRATORY FAILURE WITH HYPOXIA Status: Acute Comment: Improved, on [place] oxygen (2) Community acquired bacterial pneumonia Code(s): J15.9 - UNSPECIFIED BACTERIAL PNEUMONIA Status: Acute Comment: Monitoring fever curve and WBS, per pulm, with possible repeat CT if either parameter indicate complication such as empyema. Thus far, has not needed (3) Acute kidney injury Code(s): N17.9 - ACUTE KIDNEY FAILURE, UNSPECIFIED Status: Acute Comment: Better (4) Severe muscle deconditioning Code(s): R29.898 - OTH SYMPTOMS AND SIGNS INVOLVING THE MUSCULOSKELETAL SYSTEM Status: Acute Comment: Referral for placement/PT/OT, case management consulted (5) Toxic metabolic encephalopathy Code(s): G92 - TOXIC ENCEPHALOPATHY Status: Acute Comment: Improving slowly (6) JAMES treated with BiPAP Code(s): G47.33 - OBSTRUCTIVE SLEEP APNEA (ADULT) (PEDIATRIC) Status: Acute Comment: Will need ongoing bipap support at home (7) Hypernatremia Code(s): E87.0 - HYPEROSMOLALITY AND HYPERNATREMIA Status: Acute Comment: Mild - Plan * Discussed with Dr Zuñiga * Discussed options with patient and her trusted caregiver/friend, with patient' s permission on 04/27. Re-discussed with patient today, no changes. * Trial of LTAC referral. If not a candidate, she is open to SNF. I explained no inpt rehab qualifying diagnosis, but will ask case management to confirm that. In [facility] SNF options could include [facility], where she has been before. They also asked about [facility]. Goal transition out of hospital early next week.
[2018-04-28] MEDS: CLOZARIL 100 MG PO SCH (20:44)
[2018-04-29 02:34] LABS: #Eosinphils 0.2 thou/uL (0.0-0.7); #Lymphocytes 0.7 thou/uL (1.20-3.40); #Monocytes 0.8 thou/uL (0.11-0.59); #Neutrophils 11.8 thou/uL (1.40-6.50); %Eosinophils 1.7 % (0.0-10.0); %Lymphocytes 5.4 % (21.0-51.0); %Monocytes 5.7 % (0.0-10.0); %Neutrophils 87.2 % (42.0-75.0); Hemoglobin 8.8 g/dL (12.0-16.0); Mean Corpuscular HGB CONC 31.6 g/dL (32.0-36.0); Mean Corpuscular Hemoglobin 30.2 pg (27.0-31.0); Mean Corpuscular Volume 95.5 fL (78.0-98.0); Platelet Count 267 thou/uL (130-400); RBC Distribution Width 14.9 % (11.5-14.5); Red Blood Cell (RBC) Count 2.93 mill/uL (4.20-5.40); White Blood Cell (WBC) Count 13.5 thou/uL (4.8-10.8)
[2018-04-29 02:57] LABS: Anion Gap 13 mmol/L (10-20); BUN (Urea Nitrogen) 24 mg/dL (9.8-20.1); Calc. Creatinine Clearance 68 mL/min (70-130); Calcium 9.1 mg/dL (7.8-10.44); Carbon Dioxide 31 mmol/L (22-29); Chloride 99 mmol/L (98-107); Estimated GFR-MDRD 37; Glucose 142 mg/dL (70-105); Potassium 4.2 mmol/L (3.5-5.1); Sodium 139 mmol/L (136-145)
[2018-04-29] MEDS: Budesonide 0.5 MG/2 ML NEB INH SCH ×2 (08:46→19:08)
[2018-04-29] MEDS: Famotidine 20 MG TAB PO SCH (09:16)
[2018-04-29] MEDS: Amoxicillin/Potassium Clav 875 MG TAB PO SCH ×2 (09:16→20:45)
[2018-04-29] MEDS: lamoTRIgine 25 MG TAB PER TUBE SCH ×2 (09:16→20:45)
[2018-04-29] MEDS: Saccharomyces boulardii 250 MG CAP PER TUBE SCH (09:17)
[2018-04-29] MEDS: Heparin 5,000 UNITS/ML VIAL SC SCH ×3 (09:17→20:46)
--- NOTE | 2018-04-29 11:16 | PRG ---
DATE OF SERVICE: 04/29/2018 SUBJECTIVE: The patient is seen and examined at bedside. She is very weak. She did not eat any breakfast this morning. OBJECTIVE: VITAL SIGNS: Blood pressure is 105/63, pulse is 100, temperature is 97.7, respiratory rate is 16, and O2 saturation is 100% on 2 L by nasal cannula. HEENT: Head is atraumatic and normocephalic. She looks very weak and exhausted. Her pupils responding to light properly. Sclerae are nonicteric. Oral mucosa is somewhat dry. Tongue is covered with some discharge, which is yellowish. NECK: Supple, obese. LUNGS: Her breath sounds are diminished at both bases. Bilateral crackles are present at both bases. No wheezing. HEART: S1 and S2, somewhat distant. No S3. No S4. ABDOMEN: Soft, nontender, nondistended. Bowel sounds are present. No organomegaly. EXTREMITIES: 1+ peripheral edema similar bilaterally on the lower extremities. Pulses palpable on both tibialis posterior and dorsalis pedis arteries similar bilaterally. NEUROLOGIC: She follows my commands. She moves her extremities, but with extreme weakness. Neurological examination is not focal. LABORATORY DATA: Labs showed a white count of 13.5, hemoglobin of 8.8, hematocrit 28.0, platelet count is 267,000. Sodium of 139, potassium 4.2, chloride 99, CO2 of 31, BUN 24, creatinine 1.45. Glycemia is ranging from 130 to 171, calcium 8.1 Microbiology, no new findings home. IMPRESSION: 1. Acute respiratory failure with hypoxia, on BiPAP at night, nasal cannula. 2. Community-acquired bacterial pneumonia. 3. Acute kidney injury, improving. 4. Severe muscle deconditioning. We will check her aldolase and CPK. 5. Toxic metabolic encephalopathy, improving slowly. 6. Obstructive sleep apnea with BiPAP at night. 7. Hypernatremia and hyperosmolality syndrome, improved. PLAN: Her oral intake is not adequate. We will address this issue with dietitian. We will obtain full report on how much intake she gets. She will require a supplementation. We will start her on Nepro one can 3 times a day, try to push this in with encouraging her to drink. She will continue on her two antibiotics. She will need prolonged rehabilitation process before she can get back to her baseline if it is even possible. Job ID: [id number]
[2018-04-29] MEDS: HYDROcodone/Acetaminophen 10/325 mg Tablet PO PRN ×2 (12:04→22:23)
--- NOTE | 2018-04-29 13:06 | PRG ---
DATE OF SERVICE: 04/29/2018 SERVICE: Pulmonary Medicine. INTERVAL HISTORY: The patient is doing really quite well from respiratory standpoint. Denies any current chest pain, fevers, or chills. She remains extremely weak. Otherwise, there has been no notable change to her condition. She is yet to get out of bed today. OBJECTIVE: VITAL SIGNS: Afebrile, pulse 107, blood pressure 107/70, respirations 16, and saturation 93% on 2 L nasal cannula. GENERAL: The patient is awake and alert, in no apparent distress. LUNGS: Decent air entry on the left. There is decreased air entry on the right with some rhonchi and crackles present. HEART: Normal rate, regular. ABDOMEN: Soft, nontender, and nondistended. Bowel sounds are positive. MUSCULOSKELETAL: No cyanosis or clubbing. There is no pitting in the bilateral lower extremities. NEUROLOGIC: Grossly nonfocal. LABORATORY DATA: WBC 13.5, hemoglobin 8.8, and platelets 267,000. Neutrophil count is 87% and up trending once again. Creatinine 1.45 and roughly stable. BUN 24. Basic metabolic profile is otherwise unremarkable. Bicarbonate is 31, continuing to trend upward. CK is within the normal limits at 12. Urinalysis is negative. C diff antigen and toxin are unremarkable. Respiratory culture and blood cultures x2 are unremarkable. ASSESSMENT: 1. Acute hypoxic respiratory failure, improving. 2. Community-acquired pneumonia, severe with likely pulmonary abscess formation. 3. Complicated parapneumonic pleural effusion, status post chest tube placement and subsequent removal. 4. Acute kidney injury. 5. Morbid obesity. 6. Severe deconditioning. DISCUSSION AND PLAN: We will continue more supportive care including antibiotics, nebulized medications. We will continue our efforts at mobilizing the patient having work with physical therapy as much as she can tolerate. Pulmonary Critical Care will continue to follow along while the patient remains in this location, but she would be told, her nursing requirements are so high that she needs to remain in the IMCU for now. It would be reasonable to transition her to an LTAC facility. If she has a severe recrudescence in infection, a contrasted CT of the chest should be considered. Pulmonary Critical Care will continue to follow along. Job ID: [id number]
[2018-04-29] MEDS: CLOZARIL 100 MG PO SCH (20:45)
[2018-04-30 05:16] LABS: #Eosinphils 0.3 thou/uL (0.0-0.7); #Lymphocytes 0.7 thou/uL (1.20-3.40); #Monocytes 0.8 thou/uL (0.11-0.59); #Neutrophils 9.6 thou/uL (1.40-6.50); %Basophils 0.3 % (0.0-1.0); %Eosinophils 2.3 % (0.0-10.0); %Lymphocytes 5.8 % (21.0-51.0); %Monocytes 7.4 % (0.0-10.0); %Neutrophils 84.3 % (42.0-75.0); Hemoglobin 9.1 g/dL (12.0-16.0); Mean Corpuscular HGB CONC 31.3 g/dL (32.0-36.0); Mean Platelet Volume 7.2 fL (7.4-10.4); Platelet Count 277 thou/uL (130-400); RBC Distribution Width 15.2 % (11.5-14.5); Red Blood Cell (RBC) Count 3.03 mill/uL (4.20-5.40); White Blood Cell (WBC) Count 11.4 thou/uL (4.8-10.8)
[2018-04-30 05:35] LABS: Anion Gap 13 mmol/L (10-20); BUN (Urea Nitrogen) 19 mg/dL (9.8-20.1); Calc. Creatinine Clearance 68 mL/min (70-130); Calcium 9.1 mg/dL (7.8-10.44); Carbon Dioxide 31 mmol/L (22-29); Chloride 100 mmol/L (98-107); Estimated GFR-MDRD 37; Glucose 120 mg/dL (70-105); Magnesium 1.8 mg/dL (1.6-2.6); Potassium 4.2 mmol/L (3.5-5.1); Sodium 140 mmol/L (136-145)
[2018-04-30 05:57] LABS: Phosphorus 3.5 mg/dL (2.3-4.7)
[2018-04-30] MEDS: Budesonide 0.5 MG/2 ML NEB INH SCH ×2 (07:43→18:15)
[2018-04-30] MEDS ORDERED: Albuterol Sulfate 1.25 MG/3 ML NEB ONE (09:18)
[2018-04-30] MEDS: Megestrol Acetate 800 MG/20 ML UDCUP PO SCH (09:37)
[2018-04-30] MEDS: HYDROcodone/Acetaminophen 10/325 mg Tablet PO PRN ×3 (09:37→21:16)
[2018-04-30] MEDS: Saccharomyces boulardii 250 MG CAP PER TUBE SCH (09:38)
[2018-04-30] MEDS: lamoTRIgine 25 MG TAB PER TUBE SCH ×2 (09:38→21:16)
[2018-04-30] MEDS: Amoxicillin/Potassium Clav 875 MG TAB PO SCH ×2 (09:38→21:16)
[2018-04-30] MEDS: Famotidine 20 MG TAB PO SCH (09:38)
[2018-04-30] MEDS: Heparin 5,000 UNITS/ML VIAL SC SCH ×3 (09:39→21:16)
--- NOTE | 2018-04-30 11:18 | PRG ---
DATE OF SERVICE: 04/30/2018 SUBJECTIVE: Ms. Quan is alert, appears to be doing better. OBJECTIVE: VITAL SIGNS: Her temperature is 97.9, pulse 102, respirations 16, O2 saturation 95% on 2 L, and blood pressure 140/79. HEENT: Unremarkable. NECK: No JVD. CHEST: Coarse rhonchi. CARDIAC: S1 and S2, regular. ABDOMEN: Soft. EXTREMITIES: No edema. LABORATORY DATA: White blood cell count 11.4, hematocrit 29.1, and platelet count 277. Sodium 140, potassium 4.2, chloride 100, CO2 of 31, BUN 19, creatinine 1.4, glucose 120. ASSESSMENT: 1. Acute on chronic hypoxic respiratory failure, improving. 2. Severe underlying chronic obstructive pulmonary disease. 3. Complicated parapneumonic pleural effusion, status post chest tube placement and subsequent removal. 4. Acute kidney injury. 5. Morbid obesity. PLAN: 1. Increase activity as tolerated. 2. Continue antibiotics. 3. Continue BiPAP intermittently during the day and continuously at night for sleep apnea. 4. We will follow. Of note, this patient is my patient in clinic. Job ID: [id number]
--- NOTE | 2018-04-30 16:29 | PRG ---
DATE OF SERVICE: 04/30/2018 SUBJECTIVE: The patient was seen and examined at the bedside. There is not much change in her current condition since yesterday. She is still very weak. She requires full care. OBJECTIVE: VITAL SIGNS: Blood pressure is 140/76, , temperature is 97.4, respiratory rate 20, and O2 saturation 95% on 2 L by nasal cannula. HEENT: Head is atraumatic and normocephalic. Pupils are responding to light properly. LUNGS: Coarse rhonchi. HEART: S1 and S2 normal. ABDOMEN: Soft, nontender, and nondistended. EXTREMITIES: No clubbing or cyanosis. 1+ peripheral edema. LABORATORY DATA: White count of 11.4, hemoglobin 9.1, hematocrit 29.1, and platelet count 277,000. Sodium of 140, potassium of 4.2, chloride 100, CO2 of 31, BUN 19, and creatinine 1.45. Glycemia ranging from to 149. Creatine kinase 12. Aldolase, pending. Microbiology, no new findings. IMPRESSION: 1. Acute respiratory failure with hypoxia on BiPAP at night and nasal cannula during the day. 2. Community-acquired bacterial pneumonia. 3. Acute kidney injury, improving. 4. Severe muscle deconditioning with normal CPK levels. 5. Toxic metabolic encephalopathy, improving. 6. Obstructive sleep apnea with BiPAP at night. 7. Hypernatremia, hyperosmolality syndrome, improved. PLAN: We are going to arrange LTAC transfer. She would require prolonged treatment and rehabilitation. For now, we will continue antibiotics, which is levofloxacin and Augmentin. We will try to push more supplements p.o. and continue current regimen and continue BiPAP at night. Job ID: [id number]
[2018-04-30] MEDS: CLOZARIL 100 MG PO SCH (21:16)
[2018-05-01] MEDS: Budesonide 0.5 MG/2 ML NEB INH SCH ×2 (05:25→19:00)
[2018-05-01 05:37] LABS: #Eosinphils 0.3 thou/uL (0.0-0.7); #Monocytes 0.9 thou/uL (0.11-0.59); #Neutrophils 10.5 thou/uL (1.40-6.50); %Basophils 0.1 % (0.0-1.0); %Eosinophils 2.5 % (0.0-10.0); %Lymphocytes 7.4 % (21.0-51.0); %Monocytes 7.4 % (0.0-10.0); %Neutrophils 82.6 % (42.0-75.0); Hemoglobin 9.5 g/dL (12.0-16.0); Mean Corpuscular HGB CONC 31.1 g/dL (32.0-36.0); Mean Corpuscular Hemoglobin 29.7 pg (27.0-31.0); Mean Corpuscular Volume 95.6 fL (78.0-98.0); Mean Platelet Volume 7.2 fL (7.4-10.4); Platelet Count 294 thou/uL (130-400); RBC Distribution Width 15.2 % (11.5-14.5); White Blood Cell (WBC) Count 12.7 thou/uL (4.8-10.8)
[2018-05-01 06:27] LABS: Anion Gap 16 mmol/L (10-20); BUN (Urea Nitrogen) 18 mg/dL (9.8-20.1); Calc. Creatinine Clearance 67 mL/min (70-130); Calcium 9.5 mg/dL (7.8-10.44); Carbon Dioxide 30 mmol/L (22-29); Chloride 99 mmol/L (98-107); Estimated GFR-MDRD 36; Glucose 133 mg/dL (70-105); Magnesium 1.9 mg/dL (1.6-2.6); Potassium 4.6 mmol/L (3.5-5.1); Sodium 140 mmol/L (136-145)
[2018-05-01] MEDS: Heparin 5,000 UNITS/ML VIAL SC SCH ×3 (09:15→20:50)
[2018-05-01] MEDS: Saccharomyces boulardii 250 MG CAP PER TUBE SCH (09:15)
[2018-05-01] MEDS: Amoxicillin/Potassium Clav 875 MG TAB PO SCH ×2 (09:15→20:50)
[2018-05-01] MEDS: Famotidine 20 MG TAB PO SCH (09:15)
[2018-05-01] MEDS: Megestrol Acetate 800 MG/20 ML UDCUP PO SCH (09:15)
[2018-05-01] MEDS: lamoTRIgine 25 MG TAB PER TUBE SCH ×2 (09:15→20:50)
[2018-05-01 09:16] LABS: Phosphorus 3.4 mg/dL (2.3-4.7)
--- NOTE | 2018-05-01 10:41 | RAD ---
CHEST 1 VIEW: HISTORY: Chest pain. COMPARISON: 04/24/2018. FINDINGS: Cardiac silhouette is magnified and enlarged. Pulmonary vasculature is slightly engorged. Right hem idiaphragm remains elevated. Patchy bibasilar infiltrates. Nasogastric tube is no longer visualized . IMPRESSION: Cardiomegaly with mild pulmonary vascular congestion. POS: [facility]
[2018-05-01] MEDS: Insulin Regular 300 UNITS/3 ML VIAL SC PRN ×2 (10:56→21:19)
[2018-05-01] MEDS: HYDROcodone/Acetaminophen 10/325 mg Tablet PO PRN ×2 (12:18→21:21)
--- NOTE | 2018-05-01 12:20 | PRG ---
DATE OF SERVICE: 05/01/2018 SUBJECTIVE: iMley Quan remains in the MICU. She is somewhat better, still appears to be markedly weak. OBJECTIVE: VITAL SIGNS: Saturations are 95 on 2 L, respirations 19, pulse 115, temperature 97, blood pressure 103/70. CHEST: Decreased breath sounds. Minimal rhonchi. CARDIAC: Normal S1 and S2. No gallops. ABDOMEN: No masses. IMPRESSION: Status post right lung decortication, parapneumonic effusion, sleep apnea. PLAN: Continue neb treatments, antibiotics, PT, supportive care. All cultures are so far negative. Deescalate antibiotics to p.o. medication. Job ID: [id number]
--- NOTE | 2018-05-01 16:33 | PRG ---
DATE OF SERVICE: 05/01/2018 SUBJECTIVE: The patient is seen and examined at bedside. She does not have much complaints to offer except for some inability to clear her throat with some mild congestion. OBJECTIVE: VITAL SIGNS: Blood pressure is 135/78, temperature is 97.2, respiratory rate is 17, pulse is 112, and O2 saturation is 100% on 2 L by nasal cannula. HEENT: Her head is atraumatic and normocephalic. Eyes are PERRLA. Sclerae nonicteric. Oral mucosa is moist. NECK: Supple. Obese. LUNGS: Breath sounds somewhat diminished at both bases with few crackles bilaterally. No wheezing. HEART: S1 and S2. Tachycardic. No S3. No S4. ABDOMEN: Soft, nontender, and nondistended. EXTREMITIES: No clubbing or cyanosis. There is 1+ peripheral edema similar bilaterally. NEUROLOGICAL: She follows my commands. Moves all 4 extremities. LABORATORY DATA: White count of 12.7, hemoglobin 9.5, hematocrit 30.6, and platelet count is 294. Sodium of 140, potassium 4.6, chloride 99, CO2 of 30, creatinine 1.47, and glycemia is ranging from 123 to 197. The rest of chemistry within normal limits. IMAGING DATA: Chest x-ray done this morning showed cardiomegaly with mild pulmonary vascular congestion. IMPRESSION: 1. Severe deconditioning, secondary to prolonged severe illness. 2. Acute respiratory failure with hypoxia on BiPAP at night and nasal cannula during the daytime. 3. Community-acquired bacterial pneumonia, resolved. 4. Acute kidney injury, improving. 5. Toxic metabolic encephalopathy, improving. 6. Obstructive sleep apnea. 7. Hypernatremia and hyperosmolality syndrome, improved. PLAN: Plan is to continue current regimen until we have arrangement for LTAC. Our obstetrician and gynaecologist is switching her to p.o. antibiotics. She will continue BiPAP at night. We will continue DuoNeb and supportive care. Job ID: [id number]
[2018-05-01] MEDS: CLOZARIL 100 MG PO SCH (21:11)
[2018-05-02 04:37] LABS: #Basophils 0.1 thou/uL (0.0-0.2); #Eosinphils 0.3 thou/uL (0.0-0.7); #Lymphocytes 1.1 thou/uL (1.20-3.40); #Monocytes 0.9 thou/uL (0.11-0.59); #Neutrophils 9.6 thou/uL (1.40-6.50); %Basophils 0.4 % (0.0-1.0); %Eosinophils 2.5 % (0.0-10.0); %Monocytes 7.3 % (0.0-10.0); %Neutrophils 80.8 % (42.0-75.0); Hemoglobin 9.5 g/dL (12.0-16.0); Mean Corpuscular Hemoglobin 30.3 pg (27.0-31.0); Mean Corpuscular Volume 94.6 fL (78.0-98.0); Mean Platelet Volume 7.1 fL (7.4-10.4); Platelet Count 294 thou/uL (130-400); RBC Distribution Width 15.4 % (11.5-14.5); Red Blood Cell (RBC) Count 3.12 mill/uL (4.20-5.40); White Blood Cell (WBC) Count 11.9 thou/uL (4.8-10.8)
[2018-05-02 04:49] LABS: Phosphorus 3.8 mg/dL (2.3-4.7)
[2018-05-02 04:50] LABS: Anion Gap 16 mmol/L (10-20); BUN (Urea Nitrogen) 22 mg/dL (9.8-20.1); Calc. Creatinine Clearance 70 mL/min (70-130); Calcium 9.6 mg/dL (7.8-10.44); Carbon Dioxide 27 mmol/L (22-29); Chloride 101 mmol/L (98-107); Estimated GFR-MDRD 38; Glucose 135 mg/dL (70-105); Magnesium 1.7 mg/dL (1.6-2.6); Potassium 4.6 mmol/L (3.5-5.1); Sodium 139 mmol/L (136-145)
[2018-05-02] MEDS: Budesonide 0.5 MG/2 ML NEB INH SCH ×2 (07:40→18:21)
[2018-05-02] MEDS: lamoTRIgine 25 MG TAB PER TUBE SCH ×2 (09:37→20:11)
[2018-05-02] MEDS: Megestrol Acetate 800 MG/20 ML UDCUP PO SCH (09:38)
[2018-05-02] MEDS: Heparin 5,000 UNITS/ML VIAL SC SCH ×3 (09:38→20:12)
[2018-05-02] MEDS: Famotidine 20 MG TAB PO SCH (09:38)
[2018-05-02] MEDS: Saccharomyces boulardii 250 MG CAP PER TUBE SCH (09:38)
[2018-05-02] MEDS: Amoxicillin/Potassium Clav 875 MG TAB PO SCH (09:38)
[2018-05-02 12:04] VITALS: BMI 35.9
[2018-05-02] MEDS: Insulin Regular 300 UNITS/3 ML VIAL SC PRN (12:57)
--- NOTE | 2018-05-02 13:44 | PRG ---
DATE OF SERVICE: 05/02/2018 SUBJECTIVE: The patient is seen and examined at the bedside. She started eating better and she feels that she is getting stronger. There was no any unexpected event overnight. OBJECTIVE: VITAL SIGNS: Blood pressure is 141/82, pulse is 101, respiratory rate is 16, she is on 100% pulse oximetry on 2 L by nasal cannula. HEENT: Head is atraumatic and normocephalic. Eyes are PERRLA. Sclerae nonicteric. Oral mucosa is moist. NECK: Obese. LUNGS: Breath sounds with some crackles bilaterally at both bases. HEART: Somewhat tachycardic. No S3. No S4. ABDOMEN: Soft, nontender. Bowel sounds are present. No organomegaly. EXTREMITIES: 1+ peripheral edema similar bilaterally. NEUROLOGICAL: She follows my commands. She moves all four extremities. LABORATORY DATA: White count of 11.9, hemoglobin 9.5, hematocrit 29.5, platelet count is 294. Normal electrolytes. BUN of 22, creatinine 1.41, glycemia is ranging from 133 to 235. IMPRESSION: 1. Severe deconditioning secondary to prolonged severe illness. 2. Anorexia, improving. 3. Acute respiratory failure with hypoxia on BiPAP at night and nasal cannula during the daytime. 4. Community-acquired bacterial pneumonia, resolved. 5. Acute kidney injury, improved. 6. Toxic metabolic encephalopathy, improving. 7. Obstructive sleep apnea. 8. Hypernatremia and hyperkalemia syndrome, improved. PLAN: The original plan was to send her to LTAC, but she started eating better and her antibiotic was switched to oral by Dr. Pizarro, so I do not think she is going to need and qualify for the LTAC. We will screen her for fpc facility and continue current regimen until we have arrangements done. We will continue CPAP and DuoNebs. Job ID: [id number]
--- NOTE | 2018-05-02 18:40 | PRG ---
DATE OF SERVICE: 05/02/2018 SUBJECTIVE: Miley Quan remained medically stable. She tells me she is having a good day. She did not ambulate further than the door from the bed where she lived prior to admission. OBJECTIVE: VITAL SIGNS: She is afebrile, heart rate is 116, respiratory rate is 22, oximetry is 99% on 2 L, and blood pressure 129/78. LUNGS: Clear. HEART: Regular rhythm. ABDOMEN: Soft. IMPRESSION: 1. Pneumonia. 2. Respiratory failure. 3. Status post chest tube placement for an organized pleural effusion on the right. 4. Extreme deconditioning. It is unlikely she will fully recover from this to become independently functional. She will need to go into some type of rehabilitative facility. PLAN: My opinion, she appears to be medically stable to go into some type of rehab facility. She has actually been here since the , so, she should have had enough antimicrobial therapy to adequately treat her pneumonia. She did not have any positive blood cultures. We planned to stop her antimicrobial therapy. The patient remains anemic, but her hemoglobin is stable. Her renal function is stable with a creatinine of 1.4. The highest creatinine was 1.93. She can probably be switched off the subcu heparin to simply once a day Lovenox. She is not bronchospastic at this point in time, so we can switch her nebulizer treatments simply to just q.i.d. Job ID: [id number]
[2018-05-02] MEDS: CLOZARIL 100 MG PO SCH (20:10)
[2018-05-02] MEDS: HYDROcodone/Acetaminophen 10/325 mg Tablet PO PRN (23:38)
[2018-05-03 04:17] LABS: #Eosinphils 0.2 thou/uL (0.0-0.7); #Lymphocytes 1.1 thou/uL (1.20-3.40); #Monocytes 0.9 thou/uL (0.11-0.59); #Neutrophils 9.8 thou/uL (1.40-6.50); %Basophils 0.1 % (0.0-1.0); %Eosinophils 1.8 % (0.0-10.0); %Lymphocytes 9.4 % (21.0-51.0); %Monocytes 7.3 % (0.0-10.0); %Neutrophils 81.5 % (42.0-75.0); Hemoglobin 9.3 g/dL (12.0-16.0); Mean Corpuscular HGB CONC 32.3 g/dL (32.0-36.0); Mean Corpuscular Hemoglobin 30.2 pg (27.0-31.0); Mean Corpuscular Volume 93.4 fL (78.0-98.0); Mean Platelet Volume 6.7 fL (7.4-10.4); Platelet Count 294 thou/uL (130-400); RBC Distribution Width 15.2 % (11.5-14.5); Red Blood Cell (RBC) Count 3.08 mill/uL (4.20-5.40); White Blood Cell (WBC) Count 12.1 thou/uL (4.8-10.8)
[2018-05-03 04:34] LABS: Anion Gap 15 mmol/L (10-20); BUN (Urea Nitrogen) 21 mg/dL (9.8-20.1); Calc. Creatinine Clearance 69 mL/min (70-130); Calcium 9.6 mg/dL (7.8-10.44); Carbon Dioxide 29 mmol/L (22-29); Chloride 99 mmol/L (98-107); Estimated GFR-MDRD 38; Glucose 166 mg/dL (70-105); Magnesium 1.7 mg/dL (1.6-2.6); Potassium 4.3 mmol/L (3.5-5.1); Sodium 139 mmol/L (136-145)
[2018-05-03] MEDS: Budesonide 0.5 MG/2 ML NEB INH SCH (06:04)
[2018-05-03 07:49] VITALS: TEMP 97.4
[2018-05-03] MEDS: Megestrol Acetate 800 MG/20 ML UDCUP PO SCH (08:38)
[2018-05-03] MEDS: lamoTRIgine 25 MG TAB PER TUBE SCH (08:39)
[2018-05-03] MEDS: Famotidine 20 MG TAB PO SCH (08:39)
[2018-05-03] MEDS: Heparin 5,000 UNITS/ML VIAL SC SCH (08:39)
[2018-05-03] MEDS: Saccharomyces boulardii 250 MG CAP PER TUBE SCH (08:39)
--- NOTE | 2018-05-03 09:37 | PDOC.PN ---
- Subjective Encounter Start Date: 05/03/18 Encounter Start Time: 09:36 -: old records requested/rev Pt seen and examined, chart reviewed in its entirety, this is my first visit with this patient Follow up for GI bleed, ABLA, GILMER No F/C, no N/V/D/c, no CP or SOB, no cough or sputum production all systems reviewed and neg except as above - Objective MAR Reviewed: Yes Vital Signs & Weight: Vital Signs (12 hours) Temp Pulse Resp BP Pulse Ox 05/03/18 07:45 100 05/03/18 07:07 97.4 F L 110 H 20 140/98 H 99 05/03/18 06:02 107 H 18 100 05/03/18 03:44 96.9 F L 116 H 20 125/84 100 05/03/18 00:10 117 H 20 98 05/02/18 23:47 97.4 F L 118 H 18 132/87 99 Weight Admit Weight 227 lb 8.273 oz Weight 225 lb Most Recent Monitor Data Heart Rate from ECG 103 NIBP 158/91 NIBP BP-Mean 113 Respiration from ECG 19 SpO2 93 I&O: 05/02/18 05/03/18 05/04/18 06:59 06:59 06:59 Intake Total 890 1510 Output Total 2075 1600 Balance -1185 -90 Result Diagrams: 05/03/18 03:48 05/03/18 03:30 Additional Labs: Accuchecks 05/03/18 05/02/18 05/02/18 05:54 20:54 16:33 POC Glucose 166 H 209 H 139 H 05/02/18 11:35 POC Glucose 165 H Radiology Reviewed by me: Yes EKG Reviewed by me: Yes Phys Exam - Physical Examination Constitutional: NAD HEENT: PERRLA, moist MMs, sclera anicteric, oral pharynx no lesions Neck: no nodes, no JVD, supple, full ROM Respiratory: no wheezing, no rales, no rhonchi, clear to auscultation bilateral Cardiovascular: RRR, no significant murmur, no rub Gastrointestinal: soft, non-tender, no distention, positive bowel sounds Musculoskeletal: no edema, pulses present Neurological: non-focal, normal sensation, moves all 4 limbs Lymphatic: no nodes Psychiatric: normal affect, A&O x 3 Skin: no rash, normal turgor, cap refill <2 seconds Dx/Plan (1) Acute kidney injury Code(s): N17.9 - ACUTE KIDNEY FAILURE, UNSPECIFIED Status: Acute Comment: Better (2) Acute respiratory failure with hypoxia Code(s): J96.01 - ACUTE RESPIRATORY FAILURE WITH HYPOXIA Status: Acute Comment: Improved, on [place] oxygen (3) Community acquired bacterial pneumonia Code(s): J15.9 - UNSPECIFIED BACTERIAL PNEUMONIA Status: Acute Comment: Monitoring fever curve and WBS, per pulm, with possible repeat CT if either parameter indicate complication such as empyema. Thus far, has not needed (4) Hypernatremia Code(s): E87.0 - HYPEROSMOLALITY AND HYPERNATREMIA Status: Acute Comment: Mild (5) JAMES treated with BiPAP Code(s): G47.33 - OBSTRUCTIVE SLEEP APNEA (ADULT) (PEDIATRIC) Status: Acute Comment: Will need ongoing bipap support at home (6) Severe muscle deconditioning Code(s): R29.898 - OTH SYMPTOMS AND SIGNS INVOLVING THE MUSCULOSKELETAL SYSTEM Status: Acute Comment: Referral for placement/PT/OT, case management consulted - Plan * .
[2018-05-03 10:56] VITALS: BP 130/86
[2018-05-03] MEDS: Insulin Regular 300 UNITS/3 ML VIAL SC PRN (11:00)
[2018-05-03] MEDS: HYDROcodone/Acetaminophen 10/325 mg Tablet PO PRN (11:55)
== END 2018-05-03 12:00 | DRG 853 ==
LOC: EDBD 15:28 → ERS 15:28 → CCU 19:39 → IMCU/EMU 04-25 15:11
PROVIDERS: ADMIT Internal Medicine; ATTEND Internal Medicine
PROC: 0BH17EZ Insertion of Endotracheal Airway into Trachea, Via Natural or Artificial Opening (ICD-10-PCS; principal; 2018-04-14)
PROC: 5A1955Z Respiratory Ventilation, Greater than 96 Consecutive Hours (ICD-10-PCS; 2018-04-14)
PROC: 0B9J8ZZ Drainage of Left Lower Lung Lobe, Via Natural or Artificial Opening Endoscopic (ICD-10-PCS; 2018-04-15)
PROC: 0B9G8ZZ Drainage of Left Upper Lung Lobe, Via Natural or Artificial Opening Endoscopic (ICD-10-PCS; 2018-04-15)
PROC: 0BC38ZZ Extirpation of Matter from Right Main Bronchus, Via Natural or Artificial Opening Endoscopic (ICD-10-PCS; 2018-04-15)
PROC: 3E0G76Z Introduction of Nutritional Substance into Upper GI, Via Natural or Artificial Opening (ICD-10-PCS; 2018-04-16)
PROC: 30243N1 Transfusion of Nonautologous Red Blood Cells into Central Vein, Percutaneous Approach (ICD-10-PCS; 2018-04-18)
PROC: 0W9930Z Drainage of Right Pleural Cavity with Drainage Device, Percutaneous Approach (ICD-10-PCS; 2018-04-19)
PROC: 5A09457 Assistance with Respiratory Ventilation, 24-96 Consecutive Hours, Continuous Positive Airway Pressure (ICD-10-PCS; 2018-04-24)
DX: A41.9 Sepsis, unspecified organism (principal); J96.21 Acute and chronic respiratory failure with hypoxia; J96.02 Acute respiratory failure with hypercapnia; G92 Toxic encephalopathy; J15.9 Unspecified bacterial pneumonia; J44.1 Chronic obstructive pulmonary disease with (acute) exacerbation; J44.0 Chronic obstructive pulmonary disease with (acute) lower respiratory infection; J90 Pleural effusion, not elsewhere classified; N17.9 Acute kidney failure, unspecified; E87.0 Hyperosmolality and hypernatremia; K92.2 Gastrointestinal hemorrhage, unspecified; D62 Acute posthemorrhagic anemia; R65.20 Severe sepsis without septic shock; Z79.84 Long term (current) use of oral hypoglycemic drugs; G47.33 Obstructive sleep apnea (adult) (pediatric); G89.4 Chronic pain syndrome; F41.9 Anxiety disorder, unspecified; Z91.81 History of falling; E78.5 Hyperlipidemia, unspecified; Z85.3 Personal history of malignant neoplasm of breast; G40.909 Epilepsy, unspecified, not intractable, without status epilepticus; Z68.35 Body mass index [BMI] 35.0-35.9, adult; F20.9 Schizophrenia, unspecified; Z87.891 Personal history of nicotine dependence; I12.9 Hypertensive chronic kidney disease with stage 1 through stage 4 chronic kidney disease, or unspecified chronic kidney disease; E11.22 Type 2 diabetes mellitus with diabetic chronic kidney disease; N18.2 Chronic kidney disease, stage 2 (mild); Z90.13 Acquired absence of bilateral breasts and nipples; Z88.8 Allergy status to other drugs, medicaments and biological substances; Z88.5 Allergy status to narcotic agent; D63.8 Anemia in other chronic diseases classified elsewhere; R19.7 Diarrhea, unspecified; E66.01 Morbid (severe) obesity due to excess calories; E88.09 Other disorders of plasma-protein metabolism, not elsewhere classified; D47.3 Essential (hemorrhagic) thrombocythemia; R63.0 Anorexia
CPT/HCPCS: 31500; 36415; 36416; 36430; 70450; 71045; 71250; 72125; 80048; 80053; 80202; 80306; 80307; 81003; 81015; 82085; 82533; 82550; 82728; 82805; 83519; 83540; 83550; 83605; 83735; 83880; 84100; 84484; 85007; 85025; 85027; 85046; 86850; 86900; 86901; 87040; 87070; 87205; 87324; 87449; 93005; 94003; 94640; 94760; 96365; 96366; 96375; G8978-GP-CM; G8978-GP-CN; G8979-GP-CK; J0696; J1644; J1815; J1940; J1956; J2001; J2060; J2310; J2543; J2920; J3010; J3370; J7050; J7620; J7626; P9016; S0028